=== PATIENT | female | born 1960 | race Caucasian/White ===

== ENCOUNTER → 2016-06-25 | Day surgery (SDC) | payer BC ==
[2016-06-16 15:31] VITALS: Ht 162.6 cm; Wt 146.8 kg
[~2016-06-25] VITALS: Ht 162.6 cm; Wt 146.8 kg
[~2016-06-25] MED LIST: ALBINS INH; ALBU0.08 INH; ALBUAER INH; ALPR-411 PO; CYAN10002 IM; CYAN1SUB13 INJ; CYCL5TAB PO; ERGO1CAP35 PO; ERGO1CAP41 PO; ESCI1TAB10 PO; FRC PO; FRCT/ PO; GABA-113 PO; GLC/500 PO; HYD50 PO; JUICE PLUS PO; LIDOCAINE HCL 1% MPF 5 ML VIAL ONE; MELA1CAP PO; METF-384 PO; NIAC1TAB3 PO; PRLSR20 PO; PROP1TAB PO; SIMV20TA5 PO; SODIUM CHLORIDE 0.9% INJ 10 ML VIAL ONE; TIZA4CAP PO; VNTHFA/IN INH
[2016-06-25 14:10] VITALS: TEMP 36.6
--- NOTE | 2016-06-25 14:29 | History & Physical Bridge - [place] ---
H&P Re-Evaluation Bridge Note: I have examined the patient, reviewed the History & Physical and in the interval since the performance of the History & Physical I have noted the following changes of clinical significance: No changes noted
[2016-06-25 14:52] VITALS: BP 125/76; PULSE 87; O2SAT 92
--- NOTE | 2016-06-25 15:00 | Discharge Instructions ---
Discharge Instructions Visit Reason for Visit: Lumbar Radiculopathy Discharge Discharge Diagnosis / Problem: leg pain Discharge Goals Goal(s): Decrease discomfort, Improve function Activity Recommendations Activity Limitations: resume your previous activity Anesthesia . Post Anesthesia Instructions: If you have had General Anesthesia or IV Sedation: * Do not drive today. * Resume driving when surgeon permits. * Do not make important decisions or sign legal documents today. * Call surgeon for: 1. Temperature elevations greater than 101 degrees F. 2. Uncontrollable pain. 3. Excessive bleeding. 4. Persistent nausea and vomiting. 5. Medication intolerance (nausea, vomiting or rash). * For nausea and vomiting use only clear liquids such as: tea, soda, bouillon until nausea subsides, then gradually increase diet as tolerated. * If you have any concerns or questions, call your surgeon's office. If physician is unavailable and it is an emergency, call 911 or go to the nearest emergency room. . Diet Recommendations Recommended Home Diet: resume previous diet Procedures Procedures Performed: Lumbar Epidural Steroid Injection Pending Studies Studies pending at discharge: no Medical Emergencies . Who to Call and When: Medical Emergencies: If at any time you feel your situation is an emergency, please call 911 immediately. . Non-Emergent Contact Non-Emergency issues call your: Specialist . . "Provider Documentation" section prepared by Wily Del Cid.
--- NOTE | 2016-06-25 16:09 | OPERATIVE REPORT ---
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 POSTOPERATIVE DIAGNOSIS: Same. PROCEDURE: Lumbar epidural right paramedian L5-S1 intralaminar epidural steroid injection under fluoroscopic guidance. SURGEON: Dr. Wily Del Cid. INDICATIONS: The patient is a 55-year-old white female that presents today for a lumbar epidural steroid injection. She gets a good number of months of relief following the injections and enables her to be more functional with relief. PHYSICAL EXAMINATION: Pleasant female seated comfortably in no apparent distress. She has normal lower extremity strength, intact sensation distally. Negative seated straight leg raises. CONSENT: Verbal and written consent was obtained from the patient. Risks and benefits were reviewed. Risks include but are not limited to epidural hematoma, epidural abscess, allergic reaction, dural puncture. The patient wishes to proceed. PROCEDURE: The patient was taken back to the special procedures room of the [facility] where she was maintained in a prone position. Backside was cleansed with Betadine x3 and a dry sterile dressing was applied. Fluoroscope was used to identify the L5-S1 intralaminar space and overlying skin was anesthetized on the right side with 4 mL of lidocaine 1% with a 25 gauge 1.5-inch needle. A 20 gauge 6 inch Tuohy needle was then directed towards the intralaminar space. It was advanced under lateral fluoroscopic guidance and loss of resistance was noted at a depth of 13 cm. I did utilize lidocaine in the epidural needle with a loss of resistance syringe to drop it to ensure we were in the epidural space as she has an allergy to IVP dye and was not utilized. She then underwent injection after negative aspiration of 40 mg of Depo-Medrol, 4 mL of preservative free sodium chloride. Injection was well tolerated. DISPOSITION: 1. The patient is taken out into the discharge recovery area where she will be discharged home once discharge criteria have been met. 2. Follow up in the [facility] office in 2-4 weeks. I attest to the content of the Intraoperative Record and any orders documented therein. Any exceptio ns are noted below.
== END | disposition home or self-care (01) ==
LOC: X.SURG 13:49
PROVIDERS: ATTEND Physical Medicine & Rehabilitation
DX: M54.16 Radiculopathy, lumbar region (principal); M48.06 Spinal stenosis, lumbar region

== ENCOUNTER → 2016-11-04 | Day surgery (SDC) | payer BC ==
[2016-10-16 10:49] VITALS: Ht 162.6 cm; Wt 143.2 kg
[~2016-11-04] VITALS: Ht 162.6 cm; Wt 143.2 kg
[~2016-11-04] MED LIST changes: -ERGO1CAP41 PO; +ERGO500011 PO; -GLC/500 PO; +IOPAMIDOL INJ 61% 15 ML VIAL ONE
[2016-11-04 14:53] VITALS: TEMP 37
--- NOTE | 2016-11-04 14:53 | Discharge Instructions ---
Discharge Instructions Date of Service Nov 04, 2016. Visit Reason for Visit: Lumbar Radiculopathy Discharge Discharge Diagnosis / Problem: leg pain Discharge Goals Goal(s): Decrease discomfort, Improve function Activity Recommendations Activity Limitations: resume your previous activity Anesthesia . Post Anesthesia Instructions: If you have had General Anesthesia or IV Sedation: * Do not drive today. * Resume driving when surgeon permits. * Do not make important decisions or sign legal documents today. * Call surgeon for: 1. Temperature elevations greater than 101 degrees F. 2. Uncontrollable pain. 3. Excessive bleeding. 4. Persistent nausea and vomiting. 5. Medication intolerance (nausea, vomiting or rash). * For nausea and vomiting use only clear liquids such as: tea, soda, bouillon until nausea subsides, then gradually increase diet as tolerated. * If you have any concerns or questions, call your surgeon's office. If physician is unavailable and it is an emergency, call 911 or go to the nearest emergency room. . Diet Recommendations Recommended Home Diet: resume previous diet Procedures Procedures Performed: Lumbar Epidural Steroid Injection Pending Studies Studies pending at discharge: no Medical Emergencies . Who to Call and When: Medical Emergencies: If at any time you feel your situation is an emergency, please call 911 immediately. . Non-Emergent Contact Non-Emergency issues call your: Specialist . . "Provider Documentation" section prepared by Wily Del Cid. .
[2016-11-04 15:02] VITALS: BP 139/88; PULSE 92; O2SAT 95
--- NOTE | 2016-11-04 15:14 | OPERATIVE REPORT ---
DATE OF OPERATION: 11/04/2016 PREOPERATIVE DIAGNOSIS: Lumbar stenosis with chronic right greater than left lower extremity radiculopathy. POSTOPERATIVE DIAGNOSIS: Same. PROCEDURE: Right paramedian L5-S1 intralaminar epidural steroid injection under fluoroscopic guidance. INDICATIONS: The patient is a 56-year-old white female who responds favorably to steroids. Her last injection was in June. She is able to be mobile following the injections and as the injection wears off, she is more or less confined to assistive devices or wheelchairs for ambulation. PHYSICAL EXAMINATION: Pleasant female seated comfortably. She has normal lower extremity strength. Negative seated straight leg raises. Sensation intact. CONSENT: Verbal and written consent was obtained from the patient. Risks and benefits were reviewed. Risks include but are not limited to epidural abscess, epidural hematoma, allergic reaction, dural puncture. The patient wishes to proceed. PROCEDURE IN DETAIL: The patient was taken back to the special procedures room of the [facility] where she was maintained in a prone position. Backside was cleansed with Betadine x3 and a dry sterile dressing was applied. Fluoroscope was used to identify the L5-S1 intralaminar space and overlying skin on the right side was anesthetized with 4 mL of lidocaine 1% with a 25 gauge 1.5-inch needle. A 20 gauge 6-inch Tuohy needle was then directed down towards the intralaminar space. It was advanced under lateral fluoroscopic guidance and loss of resistance was noted at a depth of just under 13 cm. Isovue contrast was not utilized, given her severe allergy. She then underwent an injection after negative aspiration of 40 mg of Depo-Medrol, 4 mL of preservative free sodium chloride. Injection was well tolerated. DISPOSITION: 1. The patient is taken out into the discharge recovery area where she will be discharged home once discharge criteria have been met. 2. Follow up in the [facility] Medicine office in 2-4 weeks. I attest to the content of the Intraoperative Record and any orders documented therein. Any exception s are noted below.
== END | disposition home or self-care (01) ==
LOC: X.SURG 13:23
PROVIDERS: ATTEND Physical Medicine & Rehabilitation
DX: M48.07 Spinal stenosis, lumbosacral region (principal)

== ENCOUNTER → 2017-03-10 | Day surgery (SDC) | payer BC, OTHER ==
[2017-02-12 14:37] VITALS: Ht 162.6 cm; Wt 143.2 kg
[~2017-03-10] VITALS: Ht 162.6 cm; Wt 143.2 kg
[~2017-03-10] MED LIST changes: -ALBU0.08 INH; -ALBUAER INH; -CYAN10002 IM; -ERGO1CAP35 PO; -FRC PO
[2017-03-10 14:10] VITALS: TEMP 36.5
--- NOTE | 2017-03-10 14:14 | Discharge Instructions ---
Discharge Instructions Date of Service Mar 10, 2017. Visit Reason for Visit: Lumbar Radiculopathy Discharge Discharge Diagnosis / Problem: leg pain Discharge Goals Goal(s): Decrease discomfort, Improve function Activity Recommendations Activity Limitations: resume your previous activity Anesthesia . Post Anesthesia Instructions: If you have had General Anesthesia or IV Sedation: * Do not drive today. * Resume driving when surgeon permits. * Do not make important decisions or sign legal documents today. * Call surgeon for: 1. Temperature elevations greater than 101 degrees F. 2. Uncontrollable pain. 3. Excessive bleeding. 4. Persistent nausea and vomiting. 5. Medication intolerance (nausea, vomiting or rash). * For nausea and vomiting use only clear liquids such as: tea, soda, bouillon until nausea subsides, then gradually increase diet as tolerated. * If you have any concerns or questions, call your surgeon's office. If physician is unavailable and it is an emergency, call 911 or go to the nearest emergency room. . Diet Recommendations Recommended Home Diet: resume previous diet Procedures Procedures Performed: LUMBAR EPIDURAL STEROID INJECTION Pending Studies Studies pending at discharge: no Medical Emergencies . Who to Call and When: Medical Emergencies: If at any time you feel your situation is an emergency, please call 911 immediately. . Non-Emergent Contact Non-Emergency issues call your: Specialist . . "Provider Documentation" section prepared by Wily Del Cid. .
--- NOTE | 2017-03-10 14:28 | OPERATIVE REPORT ---
DATE OF OPERATION: 03/10/2017 PREOPERATIVE DIAGNOSIS: Lumbar spinal stenosis with right lower extremity radiculopathy. POSTOPERATIVE DIAGNOSIS: Same. PROCEDURE: Right paramedian L5-S1 intralaminar epidural steroid injection under fluoroscopic guidance. INDICATIONS: The patient is a 56-year-old white female who underwent an epidural steroid injection with good results on 11/04/2016, essentially 80% improvement; however, the effectiveness has worn off and she presents today for an epidural injection to provide her with relief. PHYSICAL EXAMINATION: GENERAL: Pleasant female seated comfortably in no apparent distress. MUSCULOSKELETAL: Lumbar paraspinal muscles were palpated and noted to be nontender. She had no issues with palpation in the low back area. She had normal lower extremity strength. Negative seated straight leg raises. Intact sensation distally. CONSENT: Verbal and written consent was obtained from the patient. Risks and benefits were reviewed. Risks include, but are not limited to epidural abscess, epidural hematoma, allergic reaction, and dural puncture. The patient wishes to proceed. DESCRIPTION OF PROCEDURE: The patient was taken back to the special procedures room of the [facility]. She was maintained in a prone position. Backside was cleansed with Betadine x3 and a dry sterile dressing was applied. Fluoroscope was used to identify the L5-S1 intralaminar space. Overlying skin on the right side was anesthetized with 4 mL of lidocaine 1% with a 25-gauge 1-1/2 inch needle. A 20-gauge 6-inch Tuohy needle was then directed down towards the intralaminar space. It was advanced under lateral fluoroscopic guidance and loss of resistance was noted at a depth of 10 cm. Isovue 300 contrast was not utilized given the patient's IVP allergy and the depth of the incision was confirmed by the lateral views. She then underwent injection after a negative aspiration of 40 mg of Depo-Medrol and preservative free sodium chloride 4 mL. Injections was well tolerated and reproduced a transient radicular sensation down the right leg. DISPOSITION: 1. The patient was taken out into the discharge recovery area, where she will be discharged home once discharge criteria have been met. 2. Follow up in the [facility] Sports Medicine office in 2-4 weeks. I attest to the content of the Intraoperative Record and any orders documented therein. Any exception s are noted below.
[2017-03-10 14:32] VITALS: BP 143/83; PULSE 63; O2SAT 94
== END | disposition home or self-care (01) ==
LOC: X.SURG 12:50
PROVIDERS: ATTEND Physical Medicine & Rehabilitation
DX: M48.061 Spinal stenosis, lumbar region without neurogenic claudication (principal); M54.16 Radiculopathy, lumbar region; Z88.1 Allergy status to other antibiotic agents

== ENCOUNTER → 2017-07-02 | Outpatient (CLI) | payer BC ==
[~2017-07-02] MED LIST changes: -IOPAMIDOL INJ 61% 15 ML VIAL ONE; -LIDOCAINE HCL 1% MPF 5 ML VIAL ONE; -MELA1CAP PO; -NIAC1TAB3 PO; -SODIUM CHLORIDE 0.9% INJ 10 ML VIAL ONE
--- NOTE | 2017-07-02 08:57 | DIAGNOSTIC IMAGING REPORT ---
PELVIC COMPLETE NON OB CLINICAL HISTORY: 56 years-old Female presenting with POST MENOPAUSAL BLEEDING. TECHNIQUE: Real-time grayscale and color and spectral Doppler ultrasound imaging of the pelvis was performed first using a transabdominal probe and subsequently transvaginal for better characterization. COMPARISON: 01/08/2016. FINDINGS: Body habitus limits image quality. Uterus: Normal. Anteverted. The uterus measures 7.2 x 3.7 x 4.1 cm. Endometrial stripe measures 2-3 mm in thickness. Endometrium normal-appearing. Cervix contains nabothian cysts. Right adnexa: Right ovary normal. Right ovary measures 2.4 x 2.1 x 2.4 cm. Normal color Doppler flow and arterial and venous waveforms within the ovarian parenchyma. Left adnexa: Left ovary not visualized. Other: No free fluid. IMPRESSION: 1. Thin endometrium in the presence of postmenopausal bleeding. The risk of an endometrial carcinoma is less than 1 in 1000 in the setting of postmenopausal bleeding with endometrium less than 5 mm in thickness assuming the patient is not on tamoxifen. If the patient is on tamoxifen, despite the thin endometrium, this would be concerning and gynecologic consultation recommended. 2. Nonvisualization of the left ovary. Electronically signed by: Rd Jim M.D. 07/02/2017 8:55 AM Dictated Date/Time: 07/02/2017 8:51 AM
== END | disposition home or self-care (01) ==
LOC: C.ULTR 07:36
PROVIDERS: ATTEND Obstetrics & Gynecology Gynecologic Oncology
DX: N95.0 Postmenopausal bleeding (principal)

== ENCOUNTER → 2017-07-28 | Day surgery (SDC) | payer BC, OTHER ==
[2017-06-01 14:22] VITALS: Ht 162.6 cm; Wt 143.2 kg
[~2017-07-28] VITALS: Ht 162.6 cm; Wt 143.2 kg
[~2017-07-28] MED LIST changes: +BUPIVACAINE 0.25% 2.5MG/ML PF 10 ML VIAL ONE; +IOPAMIDOL INJ 61% 15 ML VIAL ONE; +LIDOCAINE HCL 1% MPF 5 ML VIAL ONE; +SODIUM CHLORIDE 0.9% INJ 10 ML VIAL ONE
[2017-07-28 08:05] VITALS: TEMP 36.7
--- NOTE | 2017-07-28 08:51 | [facility] Post Operative Brief Note ---
Immediate Operative Summary Operative Date Jul 28, 2017. Pre-Operative Diagnosis Lumbar spinal stenosis with lower extremity radiculopathy Post-Operative Diagnosis Same as pre-op Procedure(s) Performed Lumbar Epidural Steroid Injection Surgeon Dr. Del Cid Core Winder Machine Operator Surgeon(s) None Estimated Blood Loss Zero Findings Consistent with Post-Op Diagnosis Specimens None Drains None Anesthesia Type Local Complication(s) none Disposition Disposition:
--- NOTE | 2017-07-28 08:52 | Discharge Instructions ---
Discharge Instructions Date of Service Jul 28, 2017. Visit Reason for Visit: Lumbar Radiculopathy Discharge Discharge Diagnosis / Problem: lumbar radiculopathy Discharge Goals Goal(s): Decrease discomfort, Improve function Activity Recommendations Activity Limitations: resume your previous activity Anesthesia . Post Anesthesia Instructions: If you have had General Anesthesia or IV Sedation: * Do not drive today. * Resume driving when surgeon permits. * Do not make important decisions or sign legal documents today. * Call surgeon for: 1. Temperature elevations greater than 101 degrees F. 2. Uncontrollable pain. 3. Excessive bleeding. 4. Persistent nausea and vomiting. 5. Medication intolerance (nausea, vomiting or rash). * For nausea and vomiting use only clear liquids such as: tea, soda, bouillon until nausea subsides, then gradually increase diet as tolerated. * If you have any concerns or questions, call your surgeon's office. If physician is unavailable and it is an emergency, call 911 or go to the nearest emergency room. . Diet Recommendations Recommended Home Diet: resume previous diet Procedures Procedures Performed: Lumbar Epidural Steroid Injection Pending Studies Studies pending at discharge: no Medical Emergencies . Who to Call and When: Medical Emergencies: If at any time you feel your situation is an emergency, please call 911 immediately. . Non-Emergent Contact Non-Emergency issues call your: Specialist . . "Provider Documentation" section prepared by Wily Del Cid. .
[2017-07-28 09:13] VITALS: BP 138/77; PULSE 66; O2SAT 94
--- NOTE | 2017-07-28 09:21 | OPERATIVE REPORT ---
DATE OF OPERATION: 07/28/2017 PREOPERATIVE DIAGNOSIS: Lumbar spinal stenosis with right greater than left lower extremity radiculopathy. POSTOPERATIVE DIAGNOSIS: Same. PROCEDURE: Right paramedian L5-S1 interlaminar epidural steroid injection under fluoroscopic guidance. INDICATIONS: The patient is a 57-year-old white female who had an epidural injection at the end of March. She typically gets 75-80% improvement as well as improvement in functionality; however, the effect wears off and it has worn off and she has difficulty getting around and she presents today for an epidural to improve her pain and functional status. PHYSICAL EXAMINATION: GENERAL: Pleasant female seated comfortably, in no apparent distress. MUSCULOSKELETAL: Lumbar paraspinal muscles are palpated and noted be nontender and she has normal lower extremity strength. Negative seated straight leg raise. Intact sensation distally. CONSENT: Verbal and written consent was obtained from the patient. Risks and benefits were reviewed. Risks include but are not limited to epidural abscess, epidural hematoma, allergic reaction, dural puncture. The patient wishes to proceed. PROCEDURE IN DETAIL: The patient was taken back into OR #1 of the [facility] where she was maintained in a prone position. Backside was cleansed with Betadine x3 and a dry sterile dressing was applied. Fluoroscope was used to identify the L5-S1 interlaminar space and overlying skin on the right side was anesthetized with 4 mL of lidocaine 1% with a 25-gauge 1-1/2-inch needle. A 20-gauge 4-1/2-inch needle was then directed down toward the interlaminar space, it was advanced under lateral fluoroscopic guidance and loss of resistance was noted at a depth of nearly the whole needle with it being 0.5 cm from the skin to the hub. She then underwent injection after negative aspiration, of 40 mg Depo-Medrol and 4 mL of preservative-free sodium chloride. Injection was well tolerated and reproduced a familiar transient radicular sensation down the leg. DISPOSITION: 1. The patient is taken out into the discharge recovery area where she will be discharged home once discharge criteria have been met. 2. Follow up in the [facility] Medicine office in 2-4 weeks. I attest to the content of the Intraoperative Record and any orders documented therein. Any exception s are noted below.
== END | disposition home or self-care (01) ==
LOC: X.SURG 07:52
PROVIDERS: ATTEND Physical Medicine & Rehabilitation
DX: M48.061 Spinal stenosis, lumbar region without neurogenic claudication (principal); M54.16 Radiculopathy, lumbar region; Z98.890 Other specified postprocedural states

== ENCOUNTER 2023-05-06 14:15 | Inpatient (IN) ==
--- NOTE | 2023-05-06 14:39 | ED Triage Note ---
Date of Service May 06, 2023 Provider in Triage Author: Li Payton History of Present Illness This patient was briefly evaluated while in triage. An abbreviated physical exam was performed. This patient is a 62-year-old Female who presents to the ED for evaluation of following with the [facility] for infection under pannus and on legs, was to see them tomorrow poorly controlled DM, morbid obesity, hx of intertriginous candidiasis red, itchy, oozing, getting more painful. sent by Dr. Hager for IV antibiotics has multiple antibiotic allergies Physical Exam GENERAL: NAD, morbidly obese in WC CARDIOVASCULAR: RRR RESPIRATORY: CTA ABDOMEN: BS x 4. Nontender to palpation. Unable to visualized skin in area of concern in triage. Initial orders for labs and / or imaging were placed and patient was placed in the waiting area until a bed is available. Please see further documentation for the full ED course.
--- NOTE | 2023-05-06 16:16 | Emergency Department Note ---
Impression & Plan Cellulitis, Weakness, Leukocytosis, Hypokalemia ED Provider Note NAME: CHRISTINA HORNER AGE: 62 SEX: F : 1960 ARRIVES VIA: Walk-In INFORMANT: Patient ED PROVIDER(S): Nasim Penn DO CHIEF COMPLAINT: pain in groin HPI: Patient is a 62-year-old female with multiple allergies and morbid obesity who presents to the ER for wounds in her bilateral groins which are getting worse. She has been feeling hot and cold. She does have a little bit of a cough. She notes her right lower extremity has been erythematous for the past several days. She believes the wounds in her groins have been getting worse over the past 1 to 2 weeks. She been following with wound care clinic as well as infectious disease and dermatology. She was referred in by her PCP. Denies any headache or change in vision. No chest pain but does have a cough. Patient also admits to some congestion and stuffiness of her nose. ADDITIONAL HISTORY OBTAINED: Per HPI Chronic Medical/Social Conditions Affecting Care: Per HPI PAST MEDICAL HISTORY:See Below PAST SURGICAL HISTORY:See Below FAMILY HISTORY:See Below SOCIAL HISTORY:See Below HOME MEDICATIONS:See Below ALLERGIES:See Below VITALS:See Below PHYSICAL EXAMINATION: GENERAL: Sitting up in bed, alert, morbidly obese, disheveled EYE EXAM: normal conjunctiva. PERRL and EOM's grossly intact. OROPHARYNX: mucous membranes are moist NECK: supple, no nuchal rigidity, no adenopathy, non-tender LUNGS: Clear to auscultation. Normal chest wall mechanics HEART: no murmurs, S1 normal and S2 normal ABDOMEN: abdomen soft, non-tender, normo-active bowel sounds, no masses, no rebound or guarding. BACK: Back is symmetrical on inspection and there is no deformity, no midline tenderness, no CVA tenderness. SKIN: Bilateral groins are erythematous and moist with several wounds and foul smell UPPER EXTREMITIES: upper extremities are grossly normal. LOWER EXTREMITIES: No pitting edema. NEURO EXAM: Normal sensorium, cranial nerves II-XII grossly intact, normal speech, no gross weakness of arms, no gross weakness of legs. MEDICAL DECISION MAKING: Patient is a 62-year-old female who presents ER for above-stated complaint. She was referred in by her PCP. IV was established blood work was obtained. Labs show leukocytosis of 14,000. No significant anemia. BMP with mild hypokalemia 3. Glucose at 148. Mag was normal. LFTs bilirubin and troponin were unremarkable. Pro-Sterling was normal. UA was clean. COVID flu and RSV was negative. Previous cultures were reviewed/external records and patient was ordered IV antibiotics/daptomycin. She was ordered nystatin powder. Updated bedside. Discussed case with the hospitalist Dr. Kaur for further evaluation management treatment. Consults/Care Managements Discussions: Per MDM Triage Nursing notes reviewed. Limited review of prior medical records performed Vital Signs: reviewed and remarkable for hypoxic Differential diagnosis: Infection, dehydration, metabolic abnormality, hypo/hyperglycemia, electrolyte disturbance, anemia, hypoxia, cardiac sources, intracerebral event, toxicologic, neurologic, as well as other pathologies. ER treatment provided: See below Diagnostics interpreted by me include EKG and cardiac monitoring as listed below: -Cardiac Monitoring: An order was placed for continuous cardiac monitoring. The monitor shows a rate of 80 with sinus rhythm. -ECG: none -Laboratory studies:Interpreted by me as stated above in MDM and shown below. Imaging studies: Xrays: As interpreted by me: Portable AP upright 1 view of the chest shows no focal infiltrate CTs show: none Procedures:none Critical Care: None Past Med/Surg History Medical History Anxiety and depression Visit for wound care 04/16/23>follows with [place] [facility] (biopsy of left leg and abdomen>see results) to follow up with infectious disease 04/27/23 ? 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 IN ED NO SLURRED SPEECH NOTED. EVALUSTION DONE - RESULTS PER ED VISIT - R/T ALBA'S PALSY - MEDROL DOSE PACK GIVEN AND D/C TO HOME HX BELLS PALSY X2 Osteoarthritis Fibromyalgia Ming's thyroiditis DJD (degenerative joint disease) Chronic neck and back pain GERD (gastroesophageal reflux disease) Diabetes mellitus, type 2 Sjogren's syndrome Anemia Migraine Hyperlipidemia Hypertension Sleep apnea cpap with 4 liters of oxygen Surgical History Family history of reaction to anesthesia both parents N/V S/P epidural steroid injection Nausea and vomiting after administration of anesthetic agent prior surgeries at [place] has been pretreated and done well without n/v. History of dilatation and curettage History of carpal tunnel release bilt Status post cervical spinal fusion x2--c4-5, c5-6 normal ROM History of arthroscopy of left knee History of colonoscopy History of esophagogastroduodenoscopy (EGD) History of gastric bypass gastric sleeve 2010 @ [facility] [place] History of tooth extraction wisdom teeth Family History Father Family history of reaction to anesthesia nauseated Family history of diabetes mellitus Social History Smoking Status: Never smoker Second Hand Exposure: No; Do You Dip or Chew Tobacco: No; Hx Alcohol Use: No Preferred Language: Pashto Communication Ability: Effective Visual Impairment: Limited Hearing Ability: Hard of Hearing Gis Analyst Required: No Beliefs That Will Affect Care: None marital status: Current Living Situation: Spouse Current Living Situation Comment: And daughter Feels Safe at Home: Yes Diet: regular Assistive Devices: Cane, CPAP and Glasses Allergies Allergies Allergy/AdvReac Type Severity Reaction Status Date / Time cephalexin Allergy Severe hives Verified 04/30/23 14:14 clindamycin Allergy Severe Anaphylaxis Verified 04/30/23 14:14 Iodinated Contrast Media Allergy Severe "X-RAY DYE Verified 04/30/23 14:14 - body SWELLING" - FROM CT MYELOGRAM. Penicillins Allergy Severe HIVES AND Verified 04/30/23 14:14 N/V nickel Allergy Mild Rash Verified 04/30/23 14:14 zolpidem AdvReac Severe Sleep Walk Verified 04/30/23 14:14 aspirin AdvReac Intermediate upset Verified 04/30/23 14:14 stomach codeine AdvReac Intermediate HEADACHE Verified 04/30/23 14:14 sumatriptan AdvReac Intermediate Tachycardia Verified 04/30/23 14:14 cetirizine AdvReac Mild Drowsiness Verified 04/30/23 14:14 PAIN MEDS AdvReac Intermediate NAUSEA Uncoded 04/30/23 14:14 Cryselle-28 TABS AdvReac Unknown PT DOESNT' Uncoded 04/30/23 14:14 REMEMBER Excedrin TABS AdvReac Unknown Gastrointestinal Uncoded 04/30/23 14:14 Upset Home Meds Home Medications Medication Instructions Recorded Confirmed cyanocobalamin (vitamin B-12) 1,000 mcg IM MONTHLY 03/15/18 05/06/23 1,000 mcg/mL injection kit escitalopram oxalate 20 mg tablet 20 mg PO HS 03/15/18 05/06/23 gabapentin 300 mg tablet,extended 300 mg PO BID 03/15/18 05/06/23 release 24 hr hydrochlorothiazide 50 mg tablet 25 mg PO QAM 03/15/18 05/06/23 metformin 1,000 mg tablet 1,000 mg PO BID 03/15/18 05/06/23 omeprazole 20 mg tablet,delayed 20 mg PO BID 03/15/18 05/06/23 release simvastatin 20 mg tablet 20 mg PO QPM 03/15/18 05/06/23 tizanidine 4 mg tablet 4 mg PO Q8H PRN MUSCLE SPASMS 03/15/18 05/06/23 buspirone 30 mg tablet 30 mg PO BID 05/23/19 05/06/23 cyclobenzaprine 10 mg tablet 10 mg PO BID 05/23/19 05/06/23 propranolol 40 mg tablet 40 mg PO QAM 05/23/19 05/06/23 trazodone 100 mg tablet 200 mg PO HS 05/23/19 05/06/23 glipizide 10 mg tablet 10 mg PO QAM 05/24/19 05/06/23 trazodone 50 mg tablet 50 mg PO HS 05/24/19 05/06/23 lorazepam 0.5 mg tablet (Ativan) 0.5 mg PO BID PRN Anxiety 04/24/22 05/06/23 hydroxyzine pamoate 25 mg capsule 25 - 50 mg PO QID PRN Itching 10/28/22 05/06/23 wqcpewtocf-avfmcljnxsbuz-[id number] 1 cap PO ONCE PRN MIGRAINES 04/16/23 05/06/23 50 mg-300 mg-40 mg capsule (Fioricet) cholecalciferol (vitamin D3) 1,250 1,250 mcg PO .Fridays04/16/23 05/06/23 mcg (50,000 unit) capsule empagliflozin 10 mg tablet 25 mg PO QAM 04/16/23 05/06/23 (Jardiance) itraconazole 100 mg capsule 0 mg PO DAILY 04/16/23 04/30/23 ondansetron 4 mg disintegrating 4 mg PO Q8H PRN Other 04/16/23 05/06/23 tablet Previous Rx's Medication Instructions Recorded sodium sul 1.479 gram-potas ch See Rx Instructions PO .COMPLEX 02/24/23 0.188 gram-magnes sul 0.225 gram #24 tabs tablet (Sutab) Results & Data (ED) Vital Signs Vital Signs - 24 hr 05/06/23 14:38 05/06/23 15:49 05/06/23 15:50 Temperature 36.3 C L Temperature Source Oral Pulse Rate 69 73 Pulse Rate [Bilateral] Respiratory Rate 20 Respiratory Effort / Characteristics Non-Labored Spontaneous Respiratory Depth Normal Respiratory Pattern Regular Blood Pressure 159/74 H Blood Pressure [Right Arm] Blood Pressure Mean 102 Blood Pressure Mean [Right Arm] Pulse Oximetry 95 85 L Oxygen Delivery Method Room Air Room Air Oxygen Flow Rate Sepsis Recent Fever Within 48 Hours No Sepsis New/Unexplained Change in Mental Status N/A Sepsis Action Taken by Nursing No Action Required 05/06/23 15:58 05/06/23 16:00 05/06/23 17:00 Temperature 36.6 C Temperature Source Oral Pulse Rate Pulse Rate [Bilateral] 72 72 73 Respiratory Rate 18 18 18 Respiratory Effort / Characteristics Respiratory Depth Respiratory Pattern Blood Pressure Blood Pressure [Right Arm] 165/86 H 160/81 H 162/98 H Blood Pressure Mean Blood Pressure Mean [Right Arm] 112 107 119 Pulse Oximetry 96 96 96 Oxygen Delivery Method Nasal Cannula Nasal Cannula Nasal Cannula Oxygen Flow Rate 4 4 4 Sepsis Recent Fever Within 48 Hours Sepsis New/Unexplained Change in Mental Status Sepsis Action Taken by Nursing Laboratory Data 05/06/23 16:01 05/06/23 16:01 Lab Results 05/06/23 05/06/23 05/06/23 Range/Units 16:01 17:00 17:39 WBC 14.65 H (4.8-10.8) K/ul RBC 4.87 (4.20-5.40) M/uL Hgb 14.4 (12.0-16.0) g/dl Hct 41.6 (37.0-47.0) % MCV 85.4 (80.0-100.0) fL MCH 29.6 (25.0-34.0) pg MCHC 34.6 (32.0-36.0) g/dL RDW Std Deviation 42.5 (36.4-46.3) fL RDW Coeff of [place] 13.7 (11.5-14.5) % Plt Count 321 (130-400) K/uL MPV 9.4 (9.4-12.4) fL Immature Gran % (Auto) 0.6 % Neut % (Auto) 79.7 % Lymph % (Auto) 11.0 % [place] % (Auto) 6.5 % Eos % (Auto) 1.5 % Baso % (Auto) 0.7 % Neut # (Auto) 11.68 H (1.40-6.50) K/uL Lymph # (Auto) 1.61 (1.20-3.40) K/uL [place] # (Auto) 0.95 H (0.11-0.59) K/uL Eos # (Auto) 0.22 (0.00-0.50) K/uL Baso # (Auto) 0.10 (0.00-0.20) K/uL Immature Gran # (Auto) 0.09 (0.01-0.20) K/uL Sodium 137 (136-145) mmol/L Potassium 3.0 L (3.5-5.1) mmol/L Chloride 97 L (98-107) mmol/L Carbon Dioxide 28 (21-32) mmol/L Anion Gap 12 H (3-11) BUN 8 (6-23) mg/dl Creatinine 0.48 L (0.6-1.2) mg/dl Est Cr Clr Drug Dosing 173.3 ml/min Est GFR ( Amer) 122.7 ml/min Est GFR (Non-Af Amer) 105.9 ml/min BUN/Creatinine Ratio 16.7 (10-20) Glucose 149 H (70-99(Fasting)) mg/dl Lactate 1.3 (0.4-2.0) mmol/L Calcium 9.0 (8.6-10.3) mg/dl Magnesium 2.0 (1.7-2.4) mg/dl Total Bilirubin 0.5 (0.2-1.0) mg/dl Direct Bilirubin 0.1 (0-0.2) mg/dl AST 9 L (13-39) U/L ALT 11 (7-52) U/L Alkaline Phosphatase 55 (34-104) U/L Troponin I High Sens 3.7 (0-14) pg/ml Total Protein 7.2 (6.0-8.3) gm/dl Albumin 3.9 (3.4-5.0) gm/dl Procalcitonin 0.08 (0-0.5) ng/ml Urine Color Yellow Urine Appearance Clear (Clear) Urine pH 7.5 (4.5-7.5) Ur Specific [place] 1.015 (1.000-1.030) Urine Protein Negative (Negative) Urine Glucose (UA) 3+ H (Negative) Urine Ketones 1+ H (Negative) Urine Blood Negative (Negative) Urine Nitrite Negative (Negative) Urine Bilirubin Negative (Negative) Urine Urobilinogen Negative (Negative) Ur Leukocyte Esterase Negative (Negative) SARS-CoV-2 (PCR) NEGATIVE (Negative) Influenza Type A (PCR) Negative (Neg) Influenza Type B (PCR) Negative (Neg) RSV (RT-PCR) Negative (Neg) Administered Medications Discontinued Medications Daptomycin 350 mg/ Syringe 7 mls @ 3.5 mls/min IV Q24H LUIS A; Protocol Stop: 05/08/23 16:29 Last Admin: 05/06/23 16:55 Dose: 3.5 mls/min Documented By: TBS Miconazole Nitrate (Miconazole Nitrate Powder 85 Gm) 1 appln EXT NOW ONE Stop: 05/06/23 16:31 Last Admin: 05/06/23 16:55 Dose: 1 appln Documented By: TBS Potassium Chloride (Potassium Chloride Crtab 20 Meq Tabcr) 40 meq PO NOW STA Stop: 05/06/23 17:45 Last Admin: 05/06/23 19:21 Dose: 40 meq Documented By: TBS Imaging Data Radiologist's Impression: Chest X-Ray 05/06/23 16:19 XR chest 1V portable HISTORY: hypoxic COMPARISON: Chest 05/22/2019. FINDINGS: There are low lung volumes. No pneumothorax. No pleural effusions. The heart remains mildly enlarged. No focal lung consolidations to suggest a pneumonia. No evidence for pulmonary edema. Prominence of the interstitial markings is likely technical. Cervical spinal fusion hardware is noted. Degenerative changes within the right shoulder. No acute fractures. IMPRESSION: No significant change compared to the prior study. No acute process. ACT 112: Negative or not required by law. Electronically signed by: Ibrahima Welch M.D. 05/06/2023 4:44 PM Discharge Plan Visit Data Chief Complaint: Infection Stated Complaint: INFECTION IN BOTH LEGS ED Provider: Nasim Penn Discharge Problem: Cellulitis, Weakness, Leukocytosis, Hypokalemia Patient Disposition: Admitted As Inpatient Discharge Instructions Interventions: ED Discharge Assessment Last Done: 05/06/23 20:47 Discharge Problem: Cellulitis Qualifiers: Site of cellulitis: unspecified site Qualified Code(s): L03.90 - Cellulitis, unspecified Leukocytosis Qualifiers: Leukocytosis type: unspecified Qualified Code(s): D72.829 - Elevated white blood cell count, unspecified
[2023-05-06 16:28] LABS: Basophils % (auto) 0.7 %; Eosinophils # (auto) 0.22 K/uL (0.00-0.50); Eosinophils % (auto) 1.5 %; Hematocrit (blood only) 41.6 % (37.0-47.0); Hemoglobin 14.4 g/dl (12.0-16.0); Immature Granulocytes # (auto) 0.09 K/uL (0.01-0.20); Immature Granulocytes % (auto) 0.6 %; Lymphocytes # (auto) 1.61 K/uL (1.20-3.40); Mean Corpuscular Hemoglobin 29.6 pg (25.0-34.0); Mean Corpuscular Hgb Conc 34.6 g/dL (32.0-36.0); Mean Corpuscular Volume 85.4 fL (80.0-100.0); Mean Platelet Volume 9.4 fL (9.4-12.4); Monocytes # (auto) 0.95 K/uL (0.11-0.59); Monocytes % (auto) 6.5 %; Neutrophils # (auto) 11.68 K/uL (1.40-6.50); Neutrophils % (auto) 79.7 %; Platelet Count 321 K/uL (130-400); RDW Coefficient of Variation 13.7 % (11.5-14.5); RDW Standard Deviation 42.5 fL (36.4-46.3); Red Blood Count 4.87 M/uL (4.20-5.40); White Blood Count 14.65 K/ul (4.8-10.8)
[2023-05-06] MEDS ORDERED: DAPTOmycin 350 MG in SYRINGE 0 ML IV SCH (16:30)
[2023-05-06] MEDS ORDERED: MICONAZOLE NITRATE POWDER 85 GM EXT ONE (16:30)
[2023-05-06 16:36] LABS: Albumin Level 3.9 gm/dl (3.4-5.0); BUN Creatinine Ratio 16.7 (10-20); Bilirubin Direct 0.1 mg/dl (0-0.2); Bilirubin,Total 0.5 mg/dl (0.2-1.0); Creatinine Clr Calc Pharmacy 173.3 ml/min; Est GFR (African American) 122.7 ml/min; Est GFR (Non-African American) 105.9 ml/min; Total Protein 7.2 gm/dl (6.0-8.3)
--- NOTE | 2023-05-06 16:46 | XRay Report ---
XR chest 1V portable HISTORY: hypoxic COMPARISON: Chest 05/22/2019. FINDINGS: There are low lung volumes. No pneumothorax. No pleural effusions. The heart remains mildly enlarged. No focal lung consolidations to suggest a pneumonia. No evidence for pulmonary edema. Prom inence of the interstitial markings is likely technical. Cervical spinal fusion hardware is noted. De generative changes within the right shoulder. No acute fractures. IMPRESSION: No significant change compared to the prior study. No acute process. ACT 112: Negative or not required by law. Electronically signed by: Ibrahima Welch M.D. 05/06/2023 4:44 PM
--- NOTE | 2023-05-06 16:56 | History & Physical Report ---
Date of Service May 06, 2023 Assessment & Plan (1) Cellulitis: Plan: Patient has diffuse cellulitis with additional intertrigo underlying the pannus and extending down to the proximal thighs bilaterally, has clearing of the distal thigh and proximal lower leg and then bilateral venous stasis with some asymmetric right greater than left erythema of the lower extremity No fluctuance appreciated, no crepitus of the abdomen, thigh, or peritonum. She is nontoxic appearing on admission Patient has a surface culture positive for group B strep, in addition to a lower surface culture positive for CONS Clinically appears consistent with streptococcal cellulitis; unfortunately patient reports anaphylactic reaction to antibiotics and has had diffuse reaction to both penicillin and cephalexin. She was pending allergy testing next week Will admit on daptomycin, this will cover both strep/coag negative staph. Patient does not appear septic on admission although does have a leukocytosis. CBC and CRP trended. Pro-Sterling is normal Cellulitic borders marked with surgical pen, photos attached to H&P Lactate is normal on admission [facility] allergy consultation pending 05/05 Statin held while on daptomycin (2) Candidiasis, intertrigo: Plan: Continue miconazole (3) Poorly controlled type 2 diabetes mellitus: Plan: Converted to basal bolus while inpatient, Jardiance/glipizide/metformin held Goal BSG [id number] BSG 149 on admit (4) Obesity, morbid, BMI 50 or higher: (5) Anxiety: Plan: Continue BuSpar (6) GERD (gastroesophageal reflux disease): Plan: Omeprazole converted to protonix (7) Asthma: Plan: No acute exacerbation. Albuterol as needed (8) Hypertension: Plan: Mildly hypertensive, asymptomatic on admission Continue home antihypertensives including propranolol/hydrochlorothiazide Plan DVT prophylaxis: Lovenox CODE STATUS: DNR/DNI. Patient would want intubation for respiratory protection in the event of an allergic reaction/airway compromise, would not want resuscitation/revival and a complete cardiac or pulmonary arrest Diet: Type II DM Disposition: Medical/surgical. If any signs of allergic reaction, transfer to PCU. History of Present Illness Primary Care Provider: DO Ene Reyes is a 62-year-old female with a past medical history of multiple medication allergies, type II DM, morbid obesity BMI greater than 50, hyperlipidemia, GERD, asthma, anemia, anxiety who presents for evaluation of a bilateral groin infection. Per ER signout/review patient has had bilateral groin wounds progressing over the last 2 weeks, expanded erythema of her right lower extremity for the past week, and has had intermittent chills. She follows with wound clinic, was referred to the ER by her PCP. She is followed by infectious disease for recurrent yeast infections which did not improve on nystatin, which did improve on itraconazole, and was transition to clotrimazolebetamethasone with improvement. Open wounds of bilateral groin and pannus left greater than right with erythema. Suspected to have possible underlying component of hidradenitis. She is with antibiotic allergies to penicillin, Keflex and pending outpatient infectious disease testing DM2, on jardiance/metoforming Pt is scheduled for allergy testing for challenge, with [facility]. Has not taken PCN in many years, broke out in broke out in itchy red rash with hives all over upper and lower body without lip/tongue involvement. Is not sure about keflex allergy. Has taken clindamycin and does not remember the reaction, but has had anaphylaxis to 'an antibiotic I don't remember what, but I took a lot of benadril and other medicines for it and eventually got better.' Is pending cardiology followup but does not know why She took her morning pills today No ches tpain or chest pressure. No syncope or presyncope Chronic dry cough, no sputum production. Medical History: Reviewed Medications: Reviewed Surgical History: Reviewed Family history: Reviewed Allergies: Reviewed, see above Social History: No tobacco/cigarette/vape use. No etoh use. No marijuana use Code Status: Allergies Allergy/AdvReac Type Severity Reaction Status Date / Time cephalexin Allergy Severe hives Verified 04/30/23 14:14 clindamycin Allergy Severe Anaphylaxis Verified 04/30/23 14:14 Iodinated Contrast Media Allergy Severe "X-RAY DYE Verified 04/30/23 14:14 - body SWELLING" - FROM CT MYELOGRAM. Penicillins Allergy Severe HIVES AND Verified 04/30/23 14:14 N/V nickel Allergy Mild Rash Verified 04/30/23 14:14 zolpidem AdvReac Severe Sleep Walk Verified 04/30/23 14:14 aspirin AdvReac Intermediate upset Verified 04/30/23 14:14 stomach codeine AdvReac Intermediate HEADACHE Verified 04/30/23 14:14 sumatriptan AdvReac Intermediate Tachycardia Verified 04/30/23 14:14 cetirizine AdvReac Mild Drowsiness Verified 04/30/23 14:14 PAIN MEDS AdvReac Intermediate NAUSEA Uncoded 04/30/23 14:14 Cryselle-28 TABS AdvReac Unknown PT DOESNT' Uncoded 04/30/23 14:14 REMEMBER Excedrin TABS AdvReac Unknown Gastrointestinal Uncoded 04/30/23 14:14 Upset Home Medications Medication Instructions Recorded Confirmed Type cyanocobalamin (vitamin B-12) 1,000 mcg IM MONTHLY 03/15/18 05/06/23 History 1,000 mcg/mL injection kit escitalopram oxalate 20 mg tablet 20 mg PO HS 03/15/18 05/06/23 History gabapentin 300 mg tablet,extended 300 mg PO BID 03/15/18 05/06/23 History release 24 hr hydrochlorothiazide 50 mg tablet 25 mg PO QAM 03/15/18 05/06/23 History metformin 1,000 mg tablet 1,000 mg PO BID 03/15/18 05/06/23 History omeprazole 20 mg tablet,delayed 20 mg PO BID 03/15/18 05/06/23 History release simvastatin 20 mg tablet 20 mg PO QPM 03/15/18 05/06/23 History tizanidine 4 mg tablet 4 mg PO Q8H PRN MUSCLE SPASMS 03/15/18 05/06/23 History buspirone 30 mg tablet 30 mg PO BID 05/23/19 05/06/23 History cyclobenzaprine 10 mg tablet 10 mg PO BID 05/23/19 05/06/23 History propranolol 40 mg tablet 40 mg PO QAM 05/23/19 05/06/23 History trazodone 100 mg tablet 200 mg PO HS 05/23/19 05/06/23 History glipizide 10 mg tablet 10 mg PO QAM 05/24/19 05/06/23 History trazodone 50 mg tablet 50 mg PO HS 05/24/19 05/06/23 History lorazepam 0.5 mg tablet (Ativan) 0.5 mg PO BID PRN Anxiety 04/24/22 05/06/23 History hydroxyzine pamoate 25 mg capsule 25 - 50 mg PO QID PRN Itching 10/28/22 05/06/23 History sodium sul 1.479 gram-potas ch See Rx Instructions PO .COMPLEX 02/24/23 05/06/23 Rx 0.188 gram-magnes sul 0.225 gram #24 tabs tablet (Sutab) [id number]-[id number] 1 cap PO ONCE PRN MIGRAINES 04/16/23 05/06/23 History 50 mg-300 mg-40 mg capsule (Fioricet) cholecalciferol (vitamin D3) 1,250 1,250 mcg PO .Fridays04/16/23 05/06/23 History mcg (50,000 unit) capsule empagliflozin 10 mg tablet 25 mg PO QAM 04/16/23 05/06/23 History (Jardiance) itraconazole 100 mg capsule 0 mg PO DAILY 04/16/23 04/30/23 History ondansetron 4 mg disintegrating 4 mg PO Q8H PRN Other 04/16/23 05/06/23 History tablet Past Med/Surg History Medical History Anxiety and depression Visit for wound care 04/16/23>follows with [facility] (biopsy of left leg and abdomen>see results) to follow up with infectious disease 04/27/23 ? 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 IN ED NO SLURRED SPEECH NOTED. EVALUSTION DONE - RESULTS PER ED VISIT - R/T CURRY'S PALSY - MEDROL DOSE PACK GIVEN AND D/C TO HOME HX BELLS PALSY X2 Osteoarthritis Fibromyalgia Ming's thyroiditis DJD (degenerative joint disease) Chronic neck and back pain GERD (gastroesophageal reflux disease) Diabetes mellitus, type 2 Sjogren's syndrome Anemia Migraine Hyperlipidemia Hypertension Sleep apnea cpap with 4 liters of oxygen Surgical History Family history of reaction to anesthesia both parents N/V S/P epidural steroid injection Nausea and vomiting after administration of anesthetic agent prior surgeries at [facility] has been pretreated and done well without n/v. History of dilatation and curettage History of carpal tunnel release bilt Status post cervical spinal fusion x2--c4-5, c5-6 normal ROM History of arthroscopy of left knee History of colonoscopy History of esophagogastroduodenoscopy (EGD) History of gastric bypass gastric sleeve 2010 @ [facility] [place] History of tooth extraction wisdom teeth Family History Father Family history of reaction to anesthesia nauseated Family history of diabetes mellitus Social History Smoking Status: Never smoker Second Hand Exposure: No; Do You Dip or Chew Tobacco: No; Hx Alcohol Use: No Preferred Language: Armenian Communication Ability: Effective Visual Impairment: Limited Hearing Ability: Hard of Hearing Chief Business Officer Required: No Beliefs That Will Affect Care: None marital status: Current Living Situation: Spouse Current Living Situation Comment: And daughter Feels Safe at Home: Yes Diet: regular Assistive Devices: Cane, CPAP and Glasses Physical Exam 2 Physical Exam: General: A&Ox3. NAD. Cooperative. HEENT: Atraumatic, normocephalic. Vision/hearing and Pulm: CTAB A&P. -wheezes, -rales, -rhonchi. Symmetrical chest rise. No increased work of breathing. No respiratory distress. Cardiac: RRR, -mrg. Radial pulses intact and symmetrical. Abdomen: Obese, diffuse demarcated erythema with skin erosions underlying the pannus and extended down to the proximal thigh bilaterally. Photos attached below. Is focally warm and extremely tender. Extremities: Demarcated erythema right greater than left in the lower extremities, tender. Marked with a surgical pen Results & Data Results & Data Vital Signs (Past 12 Hours) Vital Signs Temp Pulse Pulse Resp BP BP Pulse Ox 05/06/23 15:58 36.6 C 72 18 165/86 H 96 05/06/23 15:50 85 L 05/06/23 15:49 73 05/06/23 14:38 36.3 C L 69 20 159/74 H 95 O2 Del Method O2 Flow Rate 05/06/23 15:58 Nasal Cannula 4 05/06/23 15:50 Room Air 05/06/23 15:49 05/06/23 14:38 Room Air PG Care Time/CCT Total # of Minutes Spent Total Time Spent with Patient: Total time spent is greater than 50% in coordination of care (as documented) at patient's floor/unit and/or counseling patient: Coding Level of Care Code 88598 INT INP/OBS CARE MIN Diagnoses Cellulitis L03.90 Candidiasis, intertrigo B37.2 Poorly controlled type 2 diabetes mellitus E11.65 Obesity, morbid, BMI 50 or higher E66.01 Anxiety F41.9 GERD (gastroesophageal reflux disease) K21.9 Asthma J45.909 Hypertension I10
[2023-05-06 17:21] LABS: Troponin I High Sensitivity 3.7 pg/ml (0-14)
[2023-05-06] MEDS ORDERED: POLYETHYLENE (MIRALAX) 17 GM PACK PO PRN (17:44)
[2023-05-06] MEDS ORDERED: DEXTROSE 50% 50 ML SYRINGE IV PRN (17:44)
[2023-05-06] MEDS ORDERED: CARBOHYDRATES FOR HYPOGLYCEMIA PO PRN (17:44)
[2023-05-06] MEDS ORDERED: ONDANSETRON INJ 2 MG/ML 2 ML VIAL IV PRN (17:44)
[2023-05-06] MEDS ORDERED: GLUCAGON FOR INJ 1 MG VIAL SQ PRN (17:44)
[2023-05-06] MEDS ORDERED: GLUCOSE 10 TAB/TUBE PO PRN (17:44)
[2023-05-06] MEDS ORDERED: GLUCOSE 40% GEL 15 GM TUBE PO PRN (17:44)
[2023-05-06] MEDS ORDERED: POTASSIUM CHLORIDE CRTAB 20 MEQ TABCR PO STA (17:44)
[2023-05-06 17:52] LABS: Influenza A virus by PCR Negative (Neg); Influenza B virus by PCR Negative (Neg); RSV by PCR Negative (Neg); SARS CoV2 RNA(COVID-19) Ceph NEGATIVE (Negative)
[2023-05-06 18:02] LABS: Appearance Urine Clear (Clear); Bilirubin Urine Negative (Negative); Blood Urine Negative (Negative); Color Urine Yellow; Glucose Urine UA 3+ (Negative); Ketones Urine 1+ (Negative); Leukocyte Esterase Urine Negative (Negative); Nitrite Urine Negative (Negative); Protein Urine Negative (Negative); Specific Gravity Urine 1.015 (1.000-1.030); Urobilinogen Urine Negative (Negative); pH Urine 7.5 (4.5-7.5)
[2023-05-06] MEDS ORDERED: LORazepam 0.5 MG TAB PO PRN (21:22)
[2023-05-06] MEDS ORDERED: NON-FORMULARY MEDICATION (Cyanocobalamin (Vitamin B-12) 1,000 mcg/mL Kit) IM SCH (21:22)
[2023-05-06] MEDS: LANTUS PER UNIT CHARGE SQ SCH (22:23)
[2023-05-06] MEDS: INSULIN ASPART PER UNIT CHARGE SC SCH (22:23)
[2023-05-06] MEDS: ENOXAPARIN INJ 40 MG/0.4 ML SYR SQ SCH (22:23)
[2023-05-06] MEDS: ACETAMINOPHEN 325 MG TAB PO PRN (22:23)
[2023-05-06] MEDS: ESCITALOPRAM OXALATE 20 MG TAB PO SCH (22:24)
[2023-05-06] MEDS: PANTOprazole 40 MG TAB PO SCH (22:24)
[2023-05-06] MEDS: busPIRone 15 MG TAB PO SCH (22:25)
[2023-05-06] MEDS: CYCLOBENZAPRINE HCL 10 MG TAB PO SCH (22:25)
[2023-05-06] MEDS: POTASSIUM CHLORIDE CRTAB 20 MEQ TABCR PO SCH (22:25)
[2023-05-06] MEDS ORDERED: SENNA 8.6 MG TAB PO ONE (23:14)
[2023-05-06] MEDS ORDERED: POLYETHYLENE (MIRALAX) 17 GM PACK PO ONE (23:15)
[2023-05-06] MEDS ORDERED: diphenhydrAMINE Capsule 25 MG CAP PO ONE (23:55)
--- OUTSIDE RECORDS SUMMARY | 2023-05-07 | External Medical Summary | Continuity of Care Document ---
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 Name Role Phone Tiny Hager Primary Care Physician [phone] [id number] Date(s): 03/08/23 - 03/08/[address] [place] [address], [address] [place] [address] [phone] Encounter Diagnosis Diabetes mellitus, type 2(Discharge Diagnosis) - 03/08/23 B12 deficiency(Discharge Diagnosis) - 03/08/23 Itch(Discharge Diagnosis) - 03/08/23 Mass of right lower leg(Discharge Diagnosis) - 03/08/23 Discharge Disposition: Home or Self Care Attending Physician: DO Hager Kristen M Referring Physician: DO Hager Kristen M Allergies, Adverse Reactions, Alerts Substance Reaction Severity Status codeine Nausea headache Active clindamycin redness of eyes and tongue A ctive penicillins 1, 2, 3 i Itching Hives rash, GI upset Active narcotic analgesics nausea Active Excedrin Migraine upset stomach Active Keflex Vomiting Active Imitrex Tachycardia Active Ambien sleep walks Active Zyrtec shakey Active Unable to Obtain Allergy 4 headache, nausea Active tree nuts Migraines Active IVP dye Swelling Active Cryselle 28 chronic headache Active Allergy Not found in Search environmental allergies Active 1Stars she in not allergic to PCN 2states she is allergic to PCN 3staes she is allergic to PCN 4Allergic to: Oils, aged cheese, chocolate, all pain meds Assessment and Plan Extracted from: Title:Office Visit Note Author:DO Hager Kriste n M Date:03/08/23 1.Diabetes mellitus, type 2 Chronic condition, stable Goal:Resolution Data:unique tests ordered: _ Plan: _she is going to wait till May to restart mounjaro 2.B12 deficiency Chronic condition, stable Goal:Resolution Data:unique tests ordered: _ Plan: _B12 injection 3.Itch Chronic condition, stable Goal:Resolution Data:unique tests ordered: _ Plan: _atarax 4.Mass of right lower leg Chronic condition, stable Goal:Resolution Data:unique tests ordered: _ Plan: _MRI and ortho referral very concerning--pt with neurological deficit and changes since growth. Immunizations Given and Recorded Vaccine Date Status Refusal Reason influenza virus vaccine, inactivated 03/08/23 Give n influenza virus vaccine, inactivated 1 01/28/22 Gi jenny influenza virus vaccine, inactivated 02/05/21 Give n influenza virus vaccine, inactivated 02/19/20 Give n influenza virus vaccine, inactivated 02/09/19 Give n influenza virus vaccine, inactivated 2 03/07/18 Gi jenny influenza virus vaccine, inactivated 01/11/17 Give n influenza virus vaccine, inactivated 02/10/16 Give n influenza virus vaccine, inactivated 01/28/15 Give n influenza virus vaccine, inactivated 01/22/14 Give n influenza virus vaccine, inactivated 02/27/13 Give n SARS-CoV-2 mRNA (Pfizer 12+) bivalent 3 09/24/22 G iven SARS-CoV-2 (COVID-19) mRNA BNT-162b2 vax 03/19/21 Given tetanus/diphtheria/pertuss, acel (Tdap) 12/09/15 G iven tetanus/diphtheria/pertuss, acel (Tdap) 09/21/05 R ecorded measles/mumps/rubella virus vaccine 4 10/24/14 Giv en pneumococcal 23-valent vaccine 06/21/98 Recorded 1Result Comment: dmitriy fiore cma 2Early/Late Reason: Other : busy 3Early/Late Reason: Early/Late Reason: Clinic schedule 4Result Comment: Diluent [id number] Exp11/13/16 Medications acetaminophen/butalbital/caffeine 325 mg-50 mg-40 mg oral tablet Start: 02/17/23 16:01:00 EDT, See Instructions, Disp# 30 tab, Refills: 0, TAKE 1 TABLET BY MOUTH EVERY 6 HOURS NEEDED FOR HEADACHE, Pharmacy: [facility] Start Date: 02/17/23 Status: Ordered betamethasone-clotrimazole 0.05%-1% topical cream Start: 12/10/22 16:48:00 EDT, See Instructions, Disp# 45 g, Refills: 11, APPLY TOPICALLY TO AFFECTED AREA DAILY, Pharmacy: [facility] [id number] Start Date: 12/10/22 Status: Ordered busPIRone 30 mg oral tablet Start: 11/09/22 14:06:00 EDT, See Instructions, Disp# 60 tab, Refills: 6, Take 1 tablet by mouth twice daily, Pharmacy: [facility] [id number] Start Date: 11/09/22 Status: Ordered cyclobenzaprine 10 mg oral tablet Start: 11/04/22 13:01:00 EDT, See Instructions, Disp# 270 tab, Refills: 0, TAKE 1 TABLET BY MOUTH THREE TIMES DAILY, Pharmacy: [facility] [id number] Start Date: 11/04/22 Status: Ordered escitalopram 20 mg oral tablet Start: 08/27/22 11:18:00 EDT, 1 tab, PO, Daily, Disp# 90 tab, Refills: 3, Pharmacy: [facility] [address] Start Date: 08/27/22 Status: Ordered gabapentin 300 mg oral capsule Start: 08/27/22 11:18:00 EDT, 1 cap, PO, bid, Disp# 180 cap, Refills: 3, Pharmacy: [facility] Start Date: 08/27/22 Stop Date: 08/22/23 Status: Ordered glipiZIDE 5 mg oral tablet, extended release Start: 08/27/22 11:18:00 EDT, 2 tab, PO, Daily, Disp# 180 tab, Refills: 3, Pharmacy: [facility] [id number] Start Date: 08/27/22 Stop Date: 08/22/23 Status: Ordered hydroCHLOROthiazide 50 mg oral tablet Start: 11/16/22 17:37:00 EDT, See Instructions, Disp# 90 tab, Refills: 0, Take 1 tablet by mouth once daily, Pharmacy: [facility] [id number] Start Date: 11/16/22 Status: Ordered hydrOXYzine hydrochloride 25 mg oral tablet Start: 03/08/23 15:25:00 EDT, 2 tab, PO, qid, Disp# 100 tab, Refills: 3, PRN: as needed for itching, Pharmacy: [facility] Start Date: 03/08/23 Status: Ordered itraconazole 100 mg oral capsule Start: 11/26/22 11:55:00 EDT, See Instructions, Disp# 30, Refills: 0, 1 cap PO Daily for 7 days Q month, Pharmacy: [id number] Start Date: 11/26/22 Status: Ordered Jardiance 25 mg oral tablet Start: 11/26/22 11:50:00 EDT, 1 tab, PO, Daily, Disp# 30 tab, Refills: 3, Pharmacy: [facility] [address] Start Date: 11/26/22 Status: Ordered ketoconazole 2% topical cream Start: 09/09/22 14:12:00 EDT, 1 appl, topical, bid, Disp# 60 g, Refills: 1, to AA Under belly, Pharmacy: [facility] [address] Start Date: 09/09/22 Status: Ordered lancets Start: 08/13/21 14:58:00 EDT, See Instructions, Disp# 1 kit, Refills: 0, check BSG once daily, Pharmacy: [facility] Start Date: 08/13/21 Status: Ordered LORazepam 0.5 mg oral tablet Start: 08/27/22 11:18:00 EDT, 1 tab, PO, Daily, Disp# 30 tab, Refills: 1, prn, PRN: as needed for anxiety, Pharmacy: [facility] [address] Start Date: 08/27/22 Status: Ordered Mounjaro 7.5 mg/0.5 mL subcutaneous solution Start: 02/22/23 9:39:00 EDT, 7.5 mg =, subQ, q7days, Disp# 1 kit, Refills: 0, Pharmacy: [facility] [address] Start Date: 02/22/23 Status: Ordered omeprazole 20 mg oral delayed release capsule Start: 08/27/22 11:18:00 EDT, 1 cap, PO, bid, Disp# 180 cap, Refills: 3, Pharmacy: [facility] Start Date: 08/27/22 Stop Date: 08/22/23 Status: Ordered One Touch Verio Glucose Monitor Start: 08/14/21 9:05:00 EDT, See Instructions, Disp# 1 kit, Refills: 0, Use to test BSG once daily,Note to Pharmacy: Dx: E11.9;, Pharmacy: [facility] [address] Start Date: 08/14/21 Status: Ordered One Touch Verio Test Strips Start: 08/12/21 16:00:00 EDT, See Instructions, Disp# 100 strip, Refills: 5, Pt to test sugars 1 time daily. E11.9, Pharmacy: [facility] [address] Start Date: 08/12/21 Status: Ordered propranolol 40 mg oral tablet Start: 08/27/22 11:18:00 EDT, 1 tab, PO, qAM, Disp# 90 tab, Refills: 3, Pharmacy: [facility] [address] Start Date: 08/27/22 Stop Date: 08/22/23 Status: Ordered simvastatin 20 mg oral tablet Start: 08/27/22 11:18:00 EDT, 1 tab, PO, qhs, Disp# 90 tab, Refills: 3, Pharmacy: [facility] [address] Start Date: 08/27/22 Status: Ordered tiZANidine 4 mg oral tablet Start: 02/11/23 11:40:00 EDT, See Instructions, Disp# 90 tab, Refills: 0, TAKE 1 TABLET BY MOUTH EVERY 8 HOURS, Pharmacy: [facility] [address] Start Date: 02/11/23 Status: Ordered traZODone 100 mg oral tablet Start: 02/15/23 12:39:00 EDT, See Instructions, Disp# 180 tab, Refills: 0, TAKE 2 TABLETS BY MOUTH ONCE DAILY AT BEDTIME, Pharmacy: [facility] [address] Start Date: 02/15/23 Status: Ordered Vitamin D3 50,000 intl units (1250 mcg) oral capsule Start: 08/27/22 11:18:00 EDT, 1 cap, PO, q7days, Disp# 12 cap, Refills: 6, Pharmacy: [facility] Start Date: 08/27/22 Status: Ordered Zofran ODT 4 mg oral tablet, disintegrating Start: 02/24/23 15:12:00 EDT, 1 tab, PO, tid, Disp# 10 tab, Refills: 0, PRN: as needed for nausea/vomiting, Pharmacy: [facility] Start Date: 02/24/23 Status: Ordered Mental Status 10/23/23 Barriers to Learning one year None evide nt Mandatory Health Literacy Documentation Yes Health Literacy Communication Barriers N ever Primary Language Bhutanese Problem List Condition Confirmation Course Effective Dates Status H ealth Status Informant Anemia Confirmed Active Anxiety Confirmed Active B12 deficiency Confirmed Active Basal cell carcinoma (BCC) Confirmed Active Abnormal bone xray Confirmed Active Candidal intertrigo Confirmed Active Cough Confirmed Active Controlled diabetes mellitus with diabetic nephropathy Confirmed Active Diabetes Confirmed Active Uncontrolled diabetes mellitus with hyperglycemia Confirmed Active Fall at home Confirmed Active Low ferritin Confirmed Active Left hip pain Confirmed Active Hyperlipidemia Confirmed Active Intertrigo Confirmed Active Itch Confirmed Active Itch of skin Confirmed Active Low back pain Confirmed Active Lumbar radiculopathy Confirmed Active Mass of right lower leg Confirmed Active MIGRAINE Confirmed Active Migraine variant Confirmed Active Leg weakness Confirmed Active Lumbar disc narrowing Confirmed Active morbid obesity 1 Confirmed Active Tinea unguium Confirmed Active Leg pain, right Confirmed Active Acquired premature ovarian failure Confirmed Active Depression, major, recurrent, moderate Confirmed Active Sjogren's disease Confirmed Active Sleep disorder Confirmed Active Diabetes mellitus, type 2 Confirmed Active Uncontrolled type 2 diabetes mellitus with hypoglycemia, without long-term current use of insulin Confirmed Active Vitamin D deficiency Confirmed Active 1BMI >40 Diagnosis Diagnosis Type Effective Dates Health Status Clinical Service Informant Diabetes mellitus, type 2 Discharge Diagnosis 03/08/23 Itch Discharge Diagnosis 03/08/23 Mass of right lower leg Discharge Diagnosis 03/08/23 B12 deficiency Discharge Diagnosis 03/08/23 Procedures Procedure Date Related Diagnosis Body Site Status Epidural steroid injection 1 12/19/20 Completed Mohs surgery 10/15/20 Completed Shave biopsy and cauterization of skin 09/12/20 Completed Plain X-ray of right hand 2 06/26/20 Completed Diabetic Eye examination 3 03/26/20 Completed Lumbar spinal stenosis surgery 4, 5 02/07/20 Completed Surgical 6 10/04/19 Completed Magnetic resonance angiography 7 06/19/19 Completed MRA OF THE NECK WITH MIP IMAGES 8 06/19/19 Completed Ultrasound 9 02/17/19 Completed Dilation and curettage 04/13/16 Co mpleted Hysteroscopy 04/13/16 Completed MRI,lumbar spine 04/01/16 Complete d US scan of abdomen and pelvis 10 01/08/16 Completed Punch biopsy 11 03/21/14 Completed Colonoscopy 12 02/19/14 Completed lap sleeve gastrectomy 2011 Co mpleted Bilateral Carpal Tunnel Rele asem (2009 & 2010) 13 2010 Completed Cervical Fusion (C4- C5) 14, 15 2006 Completed Cervical spine Fusion (C5- C6 16 2002 Completed ACL - Repair of anterior cru ciate ligament, Left 17 04/16/90 Completed cyst removal from Scap 18 1987 Completed MRI OF THE BRAIN AND INTERNA L AUDITORY CANALS 19 Completed 1K5-S1 2Impression: No fracture or dislocation within the right hand. 3Type 2 daibetes mellitus with early cataracts, no retinopathy 4Lumbar stenosis with lumbar radiculopathy 5Injection 6Surgery 7MRA OF THE BRAIN WITH MIP IMAGES The left posterior cerebral artery is small in size and is partially supplied by the left posteriorcommunicating artery. No aneurysm is demonstarted. 8CONCLUSION: No significant stenosis is demonstrated in the common carotid or internal carotid arteries. 9Findings suggest a small lipoma within the subcutaneous tissue at the site of clinical concern. 10The endometrial stripe measures up to 7mm in thickness. This is greater than expected if the patient is postmenopausal. Cliical correction will be required. Gynecologic follow-up is recomended. The left ovary was not visualized. The right ovary is grossly normal as visulized but not well assessed 11right lower leg 12Repeat colonoscopy in 10 years Normal colon 13right , left 2009 2010 14C t 5 15C4 C6 plates and screws. 16fusion 17left; for torn meniscus 18removed from top of head 19MR OASIS BRAIN CRANIAL NERVES W WOUT SHEILA No acute intracranial pathology is demonstrated. no acute ischemia is seen. No abnormality is seen in the internal auditory canals. Two small foci of increased signal intensity are seen in the white matter in the right frontal lobeon the FLAIR images which are nonspecific an may not be significant. Similar foci can be seen with chronic small vessel ischemia, migraines, or previous head trauma Vital Signs Most recent to oldest [Reference Range]: 1 Patient Weight 133.6 kg (03/08/23 3:02 PM) Temperature [36.5-37.9 DegC] 36.7 DegC (03/08/23 3:02 PM) Blood Pressure 116/72mmHg (03/08/23 3:02 PM) Cuff Pulse Pressure 44 mmHg (03/08/23 3:02 PM) Social History Social History Type Response Smoking Status Never smoked cigaret crispin Sex Female FCM Outpt Note * DO Hager Kristen M: PERFORM, MODIFY Event Display: FCM Outpt Note Authored Date: [id number] Chief Complaint Pt here for 1 mo f/u History of Present Illness Pt presents for her 1 month follow up. She is now in the donut hole and can't get her mounjaro.Pt states she has been taking her hydroxine for itch and it usually works pretty well but it is notformulary. Pt states she has a mass that is getting bigger on her lower extremity and then another has now dev above the knee. Physical Exam Vitals & Measurements T:36.7C BP:116/72 SpO2:94% WT:133.600kg(Dosing) WT:133.6kg G: AAAOx3, NAD H: RR normal S1/S2 no M/R/G L: CTA b/l no r/r/w A: soft +bs nt nd E: no c/C/E b/l, pos distal pulses MSK: large mass--soft ball size lower extremity nontender, mass above the knee lemon size nontender P: normal affect and insight, no homicidal/suicidal ideation Assessment/Plan 1.Diabetes mellitus, type 2 Chronic condition, stable Goal:Resolution Data:unique tests ordered: _ Plan: _she is going to wait till May to restart mounjaro 2.B12 deficiency Chronic condition, stable Goal:Resolution Data:unique tests ordered: _ Plan: _B12 injection 3.Itch Chronic condition, stable Goal:Resolution Data:unique tests ordered: _ Plan: _atarax 4.Mass of right lower leg Chronic condition, stable Goal:Resolution Data:unique tests ordered: _ Plan: _MRI and ortho referral very concerning--pt with neurological deficit and changes since growth. Attestation I spent8 mintime in previsit planning including prepping note and chart review . I spent32 time in face to face interaction with patient concerning the issues that brought them in today. I spent2 min time in post visit planning including finishing note and depart process Total time spent today on patient visit42 min Problem List/Past Medical History Ongoing Abnormal bone xray Acquired premature ovarian failure Anemia Anxiety B12 deficiency Basal cell carcinoma (BCC) Candidal intertrigo Controlled diabetes mellitus with diabetic nephropathy Cough Depression, major, recurrent, moderate Diabetes Diabetes mellitus, type 2 Fall at home Hyperlipidemia Hypokalemia Intertrigo Itch of skin Left hip pain Leg pain, right Leg weakness Low back pain Low ferritin Lumbar disc narrowing Lumbar radiculopathy MIGRAINE Migraine variant morbid obesity Sjogren's disease Sleep disorder Tinea unguium Uncontrolled diabetes mellitus with hyperglycemia Uncontrolled type 2 diabetes mellitus with hypoglycemia, without long-term current use of insulin Vitamin D deficiency Historical Abnormal laboratory test result Acute bronchitis Acute cystitis Acute sinusitis Acute upper respiratory infection Allergic contact dermatitis Anemia, iron deficiency Arthritis Arthritis of knee Asthma exacerbation Back pain CURRY'S PALSY Chest pain Chondromalacia of patella, right Chronic back pain Chronic neck pain Chronic vaginitis Circadian rhythm sleep disorder Concussion CONGESTIVE HEART FAILURE, UNSPECIFIED CRP elevated Dental caries DEPRESSION Dizziness DJD (degenerative joint disease) Dysfunctional uterine bleeding Endometrial polyp Fibromyositis Yves hematuria GGT - Gamma-glutamyl transferase High vitamin D level Hyperglycemia Hyperuricemia Iliotibial band syndrome of left side Impaired glucose tolerance Left flank pain Lymph edema Medicare annual wellness visit, initial Morbid obesity Muscle spasm Neck pain Pain in lower jaw Pain, dental Post-menopausal bleeding Reactive airways dysfunction syndrome without complication S/P laparoscopic sleeve gastrectomy Spinal stenosis of lumbar region Stasis dermatitis GARY (stress urinary incontinence, female) Tension headache Tinea pedis Torn meniscus TPO - Thyroid peroxidase antibody Ulnar nerve damage Vaginal pain Vaginitis Weight disorder Wheeze Procedure/Surgical History Epidural steroid injection (12/19/2020)Mohs surgery (10/15/2020)Shave biopsy and cauterization of skin (09/12/2020)Plain X-ray of right hand (06/26/2020)Diabetic Eye examination (03/26/2020)Lumbar spinal stenosis surgery (02/07/2020)Surgical (10/04/2019)Magnetic resonance angiography (06/19/2019)MRA OF THE NECK WITH MIP IMAGES (06/19/2019)Ultrasound (02/17/2019)Hysteroscopy (04/13/2016)Dilation and curettage (04/13/2016)MRI,lumbar spine (04/01/2016)US scan of abdomen and pelvis (01/08/2016)Punch biopsy (03/21/2014)Colonoscopy (02/19/2014)lap sleeve gastrectomy (2011) Bilateral Carpal Tunnel Releasem (2009 & 2010) (2010) Cervical Fusion (C4- C5) (2006)Cervical spine Fusion (C5- C6 (2002)ACL - Repair of anterior cruciate ligament, Left (04/16/1990)cyst removal from Scap (1987)MRI OF THE BRAIN AND INTERNAL AUDITORY CANALS Medications acetaminophen/butalbital/caffeine(acetaminophen/butalbital/caffeine 325 mg-50 mg-40 mg oral tablet), See Instructions betamethasone-clotrimazole topical(betamethasone-clotrimazole 0.05%-1% topical cream), See Instructions, 11 refills busPIRone(busPIRone 30 mg oral tablet), See Instructions, 6 refills cholecalciferol(Vitamin D3 50,000 intl units (1250 mcg) oral capsule), [address] Int_Unit= 1 cap, PO, q7days, 6 refills cyclobenzaprine(cyclobenzaprine 10 mg oral tablet), See Instructions diabetes supplies(One Touch Verio Test Strips), See Instructions, 5 refills diabetes supplies(lancets), See Instructions diabetes supplies(One Touch Verio Glucose Monitor), See Instructions empagliflozin(Jardiance 25 mg oral tablet), 25 mg= 1 tab, PO, Daily, 3 refills escitalopram(escitalopram 20 mg oral tablet), 20 mg= 1 tab, PO, Daily, 3 refills gabapentin(gabapentin 300 mg oral capsule), 300 mg= 1 cap, PO, bid, 3 refills glipiZIDE(glipiZIDE 5 mg oral tablet, extended release), 10 mg= 2 tab, PO, Daily, 3 refills hydroCHLOROthiazide(hydroCHLOROthiazide 50 mg oral tablet), See Instructions hydrOXYzine(Vistaril 25 mg oral capsule), See Instructions, PRN, 11 refills itraconazole(itraconazole 100 mg oral capsule), See Instructions ketoconazole topical(ketoconazole 2% topical cream), 1 appl, topical, bid, 1 refills LORazepam(LORazepam 0.5 mg oral tablet), 0.5 mg= 1 tab, PO, Daily, PRN, 1 refills omeprazole(omeprazole 20 mg oral delayed release capsule), 20 mg= 1 cap, PO, bid, 3 refills ondansetron(Zofran ODT 4 mg oral tablet, disintegrating), 4 mg= 1 tab, PO, tid, PRN propranolol(propranolol 40 mg oral tablet), 40 mg= 1 tab, PO, qAM, 3 refills simvastatin(simvastatin 20 mg oral tablet), 20 mg= 1 tab, PO, qhs, 3 refills tirzepatide(Mounjaro 7.5 mg/0.5 mL subcutaneous solution), 7.5 mg, subQ, q7days tiZANidine(tiZANidine 4 mg oral tablet), See Instructions traZODone(traZODone 100 mg oral tablet), See Instructions Allergies Allergy Not found in Searchenvironmental allergies Ambiensleep walks Cryselle 28chronic headache Excedrin Migraineupset stomach IVP dyeSwelling ImitrexTachycardia KeflexVomiting Unable to Obtain Allergyheadache, nausea Zyrtecshakey clindamycinredness of eyes and tongue codeineNausea, headache narcotic analgesicsnausea penicillinsi, Itching, Hives, rash, GI upset tree nutsMigraines Social History Smoking Status Never smoked cigarettes Alcohol - Denies Alcohol Use Substance Abuse - Denies Substance Abuse Tobacco - Denies Tobacco Use Use:Never smoker Family History Angina: Father. Diabetes: Father. Heart attack: Father. High Blood Pressure: Mother and Father. Kidney disease: Father. Liver disease: Father. Health Status Family Member(s) Sister: History is negative Immunizations Vaccine Date Status SARS-CoV-2 mRNA ([employer] (deja mi) 12+) bivalent 09/24/2022 Given Comments : Early/Late Reason: Clinic schedule influenza virus vaccine, inactivated 01/28/2022 Given Comments : dmitriy fiore [facility] SARS-CoV-2 (COVID-19) mRNA BNT-162b2 vax 03/19/2021 Given influenza virus vaccine, inactivated 02/05/2021 Given influenza virus vaccine, inactivated 02/19/2020 Given influenza virus vaccine, inactivated 02/09/2019 Given influenza virus vaccine, inactivated 03/07/2018 Given Comments : Other : busy influenza virus vaccine, inactivated 01/11/2017 Given influenza virus vaccine, inactivated 02/10/2016 Given tetanus/diphtheria/pertuss, acel (Tdap) 12/09/2015 Given influenza virus vaccine, inactivated 01/28/2015 Given measles/mumps/rubella virus vaccine 10/24/2014 Given Comments : Diluent [id number] Exp11/13/16 influenza virus vaccine, inactivated 01/22/2014 Given influenza virus vaccine, inactivated 02/27/2013 Given tetanus/diphtheria/pertuss, acel (Tdap) 09/21/2005 Recorded pneumococcal 23-valent vaccine 06/21/1998 Recorded Recommendations Health Maintenance Pending(in the next year) OverDue Diabetic Eye Exam due03/27/22and every 731day Adult Influenza Vaccine due11/14/22and every 1year Due Adult COVID-19 Vaccination due03/08/23Unknown Frequency Hepatitis C Screening due03/08/23One-time only Pneumococcal Vaccine Adults and Adolescents with Chronic Illness due03/08/23One-time only Shingles Vaccine due03/08/23One-time only Due In Future Body Mass Index not due until06/19/23and every 1year Diabetes Management A1c not due until08/20/23and every 1year Colorectal Cancer Screening not due until02/17/24and every 10year Satisfied(in the past 1 year) Satisfied Adult COVID-19 Vaccination on09/24/22.Satisfied by SHAZIA Alegria, Anne Body Mass Index on06/19/22.Satisfied by MAYA Mcfarlane, Kailey Breast Cancer Screening on11/30/22.Satisfied by MAYA Selby, Kailey Cervical Cancer Screening on05/27/22. Diabetes Management A1c on08/20/22.Satisfied by Contributor_system, [email or web address] Diabetes Nephropathy Management on09/08/22.Satisfied by Contributor_system, [email or web address] Lipid Screening on08/20/22.Satisfied by Contributor_system, [email or web address] Electronic Signature on File Electronically Reviewed/Signed by: Tiny Hager DO Author Signature Dt/Tm:03/08/2023 03:50 PM Department of Family Medicine [facility] [place] Care team information Care Team Personnel Name: CAILIN Pham Tara Position: Nurse Pract - Family Med Member Role: Lifetime Relationship Address: Address: [address] [place] [address] [place] Name: DO Palumbo Franklin J Position: Physician - Family Med Member Role: Lifetime Relationship Address: Address: [address] [facility] [place] [place] [address] [place] [address] [place] Name: DO Hager Kristen M Position: Physician - Family Med Member Role: Primary Care Provider Address: Address: [address] [place] [address] [place] Name: CAILIN Layton Anna L Position: Nurse Pract - Female Pelvic Med Member Role: Lifetime Relationship Address: Address: [address] [address] [place] [address] [place] Name: MD Raoul, Aida Mason Position: Physician - Surgery MIS Member Role: Lifetime Relationship Address: Address: [address] [facility] [place] [address] [place] Name: COURTNEY Ojeda Christina L Position: Physician - Podiatry Member Role: Lifetime Relationship Address: Address: [address] [facility] [address] [place] [address] Name: MD Sinclair David L Position: Physician - Derm Member Role: Lifetime Relationship Address: Address: [address] [facility] [address] [place] [address] Care Team Related Persons Name: YVES HORNER Address: home [address] [place], [place] [id number] Name: YENIFER HORNER Address: [facility] Address: home [address] [place], [place] [id number]
--- OUTSIDE RECORDS SUMMARY | 2023-05-07 | External Medical Summary | Continuity of Care Document ---
Author Name Unknown Organization [facility] [address] [facility] [address] Address [address] [place], [place] [id number] Care Team Providers Care Materials Assistant Name Role Phone Tiny Hager Primary Care Physician [phone] Encounter [facility] [id number] Date(s): 05/03/23 - 05/03/23 [facility] [address] [facility] [address] [facility] [address] [place], [place] [phone] Encounter Diagnosis Type 2 diabetes mellitus without complications(Final) - Pruritus, unspecified(Final) - Pressure ulcer of unspecified site, unspecified stage(Final) - Discharge Disposition: Home or Self Care Attending Physician: DO Hager Kristen M Referring Physician: DO Hager Kristen M Allergies, Adverse Reactions, Alerts Substance Reaction Severity Status codeine Nausea headache Active clindamycin redness of eyes and tongue A ctive aspirin upset stomach Active penicillins 1, 2, 3 i Itching Hives rash, GI upset Active narcotic analgesics nausea Active Excedrin Migraine upset stomach Active Ambien sleep walks Active Keflex Vomiting Active Imitrex Tachycardia Active Zyrtec shakey Active Nickel Rash Active IVP dye Swelling Active Allergy Not found in Search environmental allergies Active Unable to Obtain Allergy 4 headache, nausea Active tree nuts Migraines Active Cryselle 28 chronic headache Active 1Stars she in not allergic to PCN 2states she is allergic to PCN 3staes she is allergic to PCN 4Allergic to: Oils, aged cheese, chocolate, all pain meds Immunizations Given and Recorded Vaccine Date Status Refusal Reason SARS-CoV-2 (COVID-19) mRNA-vacc - [id number] 04/05/23 Recorded influenza virus vaccine, inactivated 03/08/23 Give n [...] vaccine 06/21/98 Recorded 1Result Comment: [facility] 2Early/Late Reason: Other : busy 3Early/Late Reason: Early/Late Reason: Clinic schedule 4Result Comment: Diluent [id number] Exp11/13/16 Medications acetaminophen/butalbital/caffeine 325 mg-50 mg-40 mg oral tablet Start: 03/25/23 10:43:00 EST, See Instructions, Disp# 30 tab, Refills: 0, TAKE 1 TABLET BY MOUTH EVERY 6 HOURS NEEDED FOR HEADACHE, Pharmacy: [facility] [address] Start Date: 03/25/23 Status: Ordered betamethasone-clotrimazole 0.05%-1% topical cream Start: 12/10/22 16:48:00 EDT, See Instructions, Disp# 45 g, Refills: 11, APPLY TOPICALLY TO AFFECTED AREA DAILY, Pharmacy: [facility] [address] Start Date: 12/10/22 Status: Ordered busPIRone 30 mg oral tablet Start: 11/09/22 14:06:00 EDT, See Instructions, Disp# 60 tab, Refills: 6, Take 1 tablet by mouth twice daily, Pharmacy: [facility] [address] Start Date: 11/09/22 Status: Ordered cyclobenzaprine 10 mg oral tablet Start: 11/04/22 13:01:00 EDT, See Instructions, Disp# 270 tab, Refills: 0, TAKE 1 TABLET BY MOUTH THREE TIMES DAILY, Pharmacy: [facility] [address] Start Date: 11/04/22 Status: Ordered Diflucan 100 mg oral tablet Start: 04/05/23 12:00:00 EST, 1 tab, PO, Daily, Disp# 10 tab, Refills: 0, Pharmacy: [facility] [address] Start Date: 04/05/23 Stop Date: 04/15/23 Status: Ordered escitalopram 20 mg oral tablet Start: 08/27/22 11:18:00 EDT, 1 tab, PO, Daily, Disp# 90 tab, Refills: 3, Pharmacy: [place] [id number] Start Date: 08/27/22 Status: Ordered gabapentin 300 mg oral capsule Start: 08/27/22 11:18:00 EDT, 1 cap, PO, bid, Disp# 180 cap, Refills: 3, Pharmacy: [facility] Start Date: 08/27/22 Stop Date: 08/22/23 Status: Ordered glipiZIDE 5 mg oral tablet, extended release Start: 08/27/22 11:18:00 EDT, 2 tab, PO, Daily, Disp# 180 tab, Refills: 3, Pharmacy: [place] [address] Start Date: 08/27/22 Stop Date: 08/22/23 Status: Ordered hydroCHLOROthiazide 50 mg oral tablet Start: 11/16/22 17:37:00 EDT, See Instructions, Disp# 90 tab, Refills: 0, Take 1 tablet by mouth once daily, Pharmacy: [place] [address] Start Date: 11/16/22 Status: Ordered hydrOXYzine hydrochloride 25 mg oral tablet Start: 03/08/23 15:25:00 EDT, 2 tab, PO, qid, Disp# 100 tab, Refills: 3, PRN: as needed for itching, Pharmacy: [place] [address] Start Date: 03/08/23 Status: Ordered itraconazole 100 mg oral capsule Start: 11/26/22 11:55:00 EDT, See Instructions, Disp# 30, Refills: 0, 1 cap PO Daily for 7 days Q month, Pharmacy: [facility] Start Date: 11/26/22 Status: Ordered Jardiance 25 mg oral tablet Start: 11/26/22 11:50:00 EDT, 1 tab, PO, Daily, Disp# 30 tab, Refills: 3, Pharmacy: [place] [address] Start Date: 11/26/22 Status: Ordered ketoconazole 2% topical cream Start: 09/09/22 14:12:00 EDT, 1 appl, topical, bid, Disp# 60 g, Refills: 1, to AA Under belly, Pharmacy: [place] [address] Start Date: 09/09/22 Status: Ordered lactulose 10 g/15 mL oral syrup Start: 04/05/23 16:53:00 EST, 15 mL, PO, Daily, Disp# 240 mL, Refills: 3, PRN: as needed for constipation, Pharmacy: [place] [address] Start Date: 04/05/23 Status: Ordered lancets Start: 08/13/21 14:58:00 EDT, See Instructions, Disp# 1 kit, Refills: 0, check BSG once daily, Pharmacy: [place] [address] Start Date: 08/13/21 Status: Ordered LORazepam 0.5 mg oral tablet Start: 04/13/23 15:51:00 EST, 1 tab, PO, Daily, Disp# 30 tab, Refills: 1, prn, PRN: as needed for anxiety, Pharmacy: [place] [address] Start Date: 04/13/23 Status: Ordered Mounjaro 7.5 mg/0.5 mL subcutaneous solution Start: 02/22/23 9:39:00 EDT, 7.5 mg =, subQ, q7days, Disp# 1 kit, Refills: 0, Pharmacy: [place] [address] Start Date: 02/22/23 Status: Ordered omeprazole 20 mg oral delayed release capsule Start: 08/27/22 11:18:00 EDT, 1 cap, PO, bid, Disp# 180 cap, Refills: 3, Pharmacy: [place] [id number] Start Date: 08/27/22 Stop Date: 08/22/23 Status: Ordered One Touch Verio Glucose Monitor Start: 08/14/21 9:05:00 EDT, See Instructions, Disp# 1 kit, Refills: 0, Use to test BSG once daily,Note to Pharmacy: Dx: E11.9;, Pharmacy: [facility] [address] Start Date: 08/14/21 Status: Ordered One Touch Verio Test Strips Start: 08/12/21 16:00:00 EDT, See Instructions, Disp# 100 strip, Refills: 5, Pt to test sugars 1 time daily. E11.9, Pharmacy: [facility] [address] Start Date: 08/12/21 Status: Ordered propranolol 40 mg oral tablet Start: 08/27/22 11:18:00 EDT, 1 tab, PO, qAM, Disp# 90 tab, Refills: 3, Pharmacy: [facility] [address] Start Date: 08/27/22 Stop Date: 08/22/23 Status: Ordered simvastatin 20 mg oral tablet Start: 08/27/22 11:18:00 EDT, 1 tab, PO, qhs, Disp# 90 tab, Refills: 3, Pharmacy: [facility] [address] Start Date: 08/27/22 Status: Ordered tiZANidine 4 mg oral tablet Start: 03/17/23 14:28:00 EDT, 1 tab, PO, q8h, Disp# 90 tab, Refills: 0, Pharmacy: [facility] [address] Start Date: 03/17/23 Status: Ordered traZODone 100 mg oral tablet Start: 02/15/23 12:39:00 EDT, See Instructions, Disp# 180 tab, Refills: 0, TAKE 2 TABLETS BY MOUTH ONCE DAILY AT BEDTIME, Pharmacy: [facility] [address] Start Date: 02/15/23 Status: Ordered Vitamin D3 50,000 intl units (1250 mcg) oral capsule Start: 08/27/22 11:18:00 EDT, 1 cap, PO, q7days, Disp# 12 cap, Refills: 6, Pharmacy: [facility] [address] Start Date: 08/27/22 Status: Ordered Zofran ODT 4 mg oral tablet, disintegrating Start: 02/24/23 15:12:00 EDT, 1 tab, PO, tid, Disp# 10 tab, Refills: 0, PRN: as needed for nausea/vomiting, Pharmacy: [facility] [address] Start Date: 02/24/23 Status: Ordered Problem List Condition Confirmation Course Effective Dates [...] Confirmed Active Itch of skin Confirmed Active Lipoma Confirmed Active Benign lipomatous neoplasm of skin and subcutaneous tissue of right leg Confirmed Active Low back pain Confirmed Active Lumbar radiculopathy Confirmed Active Mass of right lower leg Confirmed Active MIGRAINE Confirmed Active Migraine variant Confirmed Active Leg weakness Confirmed Active Lumbar disc narrowing Confirmed Active morbid obesity 1 Confirmed Active Tinea unguium Confirmed Active Leg pain, right Confirmed Active Acquired premature ovarian failure Confirmed Active Pressure ulcer Confirmed Active Itchy skin Confirmed Active Depression, major, recurrent, moderate Confirmed Active Sjogren's disease Confirmed Active Sleep disorder Confirmed Active Diabetes mellitus, type 2 Confirmed Active Uncontrolled type 2 diabetes mellitus with hypoglycemia, without long-term current use of insulin Confirmed Active Vitamin D deficiency Confirmed Active 1BMI >40 Procedures Procedure Date Related Diagnosis Body Site [...] Colonoscopy 12 02/19/14 Completed lap sleeve gastrectomy 2012 Co mpleted Bilateral Carpal Tunnel Rele asem (2009 & 2010) 13 2010 Completed Cervical Fusion (C4- C5) 14, 15 2006 Completed Cervical spine Fusion (C5- C6 16 2002 Completed ACL - Repair of anterior cru ciate ligament, Left 17 04/16/90 Completed cyst removal from Scap 1987 Completed MRI OF THE BRAIN AND [...] vessel ischemia, migraines, or previous head trauma Results Laboratory List Name Date Complete Blood Count w Differential (CBC ,DIFFH) 05/03/23 Comprehensive Metabolic Panel (COMP META B PANEL) 05/03/23 T4, Free (T4, FREE) 05/03/23 Thyroid Stimulating Hormone (TSH) Vitamin B12 Level (VITAMIN B12) 05/03/23 Most recent to oldest [Reference Range]: 1 eGFR CKD-EPI [>60 mL/min/1.73 m2] >90 mL /min/1.73 m2 1 (05/03/23 1:28 PM) Estimated CrCl 143.15 mL/min (05/03/23 2:37 PM) MPV [9.0-12.2 fL] 9.5 fL (05/03/23 1:28 PM) Immature Gran% 0.6 % (05/03/23 1:28 PM) Neut% 68.1 % (05/03/23 1:28 PM) Lymph% 21.3 % (05/03/23 1:28 PM) [place]% 7.0 % (05/03/23 1:28 PM) Baso% 0.3 % (05/03/23 1:28 PM) Eos% 2.7 % (05/03/23 1:28 PM) Immat Gran, Abs [0-0.4 K/uL] 0.05 K/uL 2 (05/03/23 1:28 PM) Neut, Abs [2.0-7.7 K/uL] 6.01 K/uL (05/03/23 1:28 PM) Lymph, Abs [1.0-3.4 K/uL] 1.88 K/uL (05/03/23 1:28 PM) [place], Abs [0-1.0 K/uL] 0.62 K/uL (05/03/23 1:28 PM) Baso, Abs [0-0.1 K/uL] 0.03 K/uL (05/03/23 1:28 PM) Eos, Abs [0-0.5 K/uL] 0.24 K/uL (05/03/23 1:28 PM) Type of Diff: AUTO *Unknown* (05/03/23 1:28 PM) RDW [11.5-14.2 %] 14.3 % *HI* (05/03/23 1:28 PM) Anion Gap [5-14 mmol/L] 6 mmol/L (05/03/23 1:28 PM) Alb [3.5-5.0 g/dL] 3.9 g/dL (05/03/23 1:28 PM) Alk Phos [38-126 unit/L] 63 unit/L (05/03/23 1:28 PM) ALT [<35 unit/L] 20 unit/L (05/03/23 1:28 PM) AST [15-46 unit/L] 20 unit/L (05/03/23 1:28 PM) B12 [211-946 pg/mL] 672 pg/mL (05/03/23 1:28 PM) BUN [7-20 mg/dL] 9 mg/dL (05/03/23 1:28 PM) Ca [8.4-10.2 mg/dL] 9.0 mg/dL (05/03/23 1:28 PM) Cl- [96-107 mmol/L] 99 mmol/L (05/03/23 1:28 PM) HCO3 [22-30 mmol/L] 33 mmol/L *HI* (05/03/23 1:28 PM) Cret [0.60-1.00 mg/dL] 0.56 mg/dL *LOW* (05/03/23 1:28 PM) Glu [74-106 mg/dL] 171 mg/dL *HI* (05/03/23 1:28 PM) Hct [35-44 %] 41.7 % (05/03/23 1: PM) Hgb [11.7-15.0 g/dL] 13.6 g/dL (05/03/23 1: PM) K [3.5-5.1 mmol/L] 3.2 mmol/L *LOW* (05/03/23 1: PM) MCH [28-33 pg] 29.5 pg (05/03/23 1: PM) MCHC [32-36 g/dL] 32.6 g/dL (05/03/23 1:28 PM) MCV [81-96 fL] 90.5 fL (05/03/23 1:28 PM) Na [137-145 mmol/L] 138 mmol/L (05/03/23 1:28 PM) Plts [150-350 K/uL] 272 K/uL (05/03/23 1:28 PM) RBC [3.90-5.00 M/uL] 4.61 M/uL (05/03/23 1:28 PM) Free T4 [0.70-1.48 ng/dL] 1.05 ng/dL 3 (05/03/23 1:28 PM) T Bili [0.2-1.3 mg/dL] 0.5 mg/dL (05/03/23 1:28 PM) Prot [6.3-8.2 g/dL] 7.3 g/dL (05/03/23 1:28 PM) TSH [0.47-4.68 uIU/mL] 1.46 uIU/mL 4 (05/03/23 1:28 PM) WBC [4.0-10.4 K/uL] 8.83 K/uL (05/03/23 1:28 PM) 1Result Comment: Testing Performed By: Dept of Pathology [facility], [address] [place] [address], [place] [address] 2Result Comment: Testing Performed By: Dept of Pathology [facility], [address] [place] [address], [place] [address] 3Result Comment: Testing Performed By: Dept of Pathology [facility], [address] [place] [address], [place] [address] 4Result Comment: Testing Performed By: Dept of Pathology [facility], [address] [place] [address], [place] [address] Social History Social History Type Response Smoking Status Never smoked cigaret crispin Sex Female Patient Care team information Care Team Personnel Name: CAILIN Pham Tara Position: Nurse Pract - Family Med Member Role: Lifetime Relationship Address: Address: [address] [place] [id number] [place] Name: DO Palumbo Franklin J Position: Physician - Family Med Member Role: Lifetime Relationship Address: Address: [address] [facility] [address] [place] [address] [place] Name: DO Hager Kristen M Position: Physician - Family Med Member Role: Primary Care Provider Address: Address: [address] [facility] [address] [place] [address] [place] Name: CAILIN Layton Anna L Position: Nurse Pract - Female Pelvic Med Member Role: Lifetime Relationship Address: Address: [address] [facility] [address] [place] [address] [place] Name: MD Silveira Ann M Position: Physician - Surgery MIS Member Role: Lifetime Relationship Address: Address: [address] [place] [address] [place] Name: COURTNEY Ojeda Christina L Position: Physician - Podiatry Member Role: Lifetime Relationship Address: Address: [address] [facility] [address] [place] [address] [place] Name: MD Sinclair David L Position: Physician - Derm Member Role: Lifetime Relationship Address: Address: [address] [facility] [address] [place] [address] [place] Care Team Related Persons Name: WILLIAM HORNER Address: home [address] [place], [place] [phone] Name: YENIFER HORNER Address: [facility] Address: home [address] [place], [place] [id number]
--- OUTSIDE RECORDS SUMMARY | 2023-05-07 | External Medical Summary | Continuity of Care Document ---
Author Name Unknown Organization [id number] Address [address] [place] [id number] Care Team Providers Care Analysis Lead Name Role Phone Tiny Hager Primary Care Physician [phone] [id number] Date(s): 03/22/23 - 03/22/23 [facility] [place] [id number] Medicine [address] [place], [place] [id number] Encounter Diagnosis Diabetes(Discharge Diagnosis) - 03/22/23 Tinea unguium(Discharge Diagnosis) - 03/22/23 Discharge Disposition: Home or Self Care Attending Physician: COURTNEY Ojeda Christina L Allergies, Adverse Reactions, Alerts Substance Reaction Severity [...] pain meds Assessment and Plan Extracted from: Title:Follow Up Visit Author:COURTNEY Ojeda, Monse Robles Date:03/22/23 1.Diabetes 2.Tinea unguium -Patient unable to provide self care to toenails due to - verbal consent obtained for debridement with witness -Recommend toenail debridement -Patient had toenails ofdigits 1 through 5 right foot and digits 2 through 5 left foot debrided using nail nippers to tolerance, no bleeding noted -Patient instructed to use emery board to nails once per week -Patient had no ingrown toenails or infection noted -Patient is to follow up in3-4 months for treatment if needed in the future Immunizations Given and Recorded Vaccine Date Status [...] vaccine 06/21/98 Recorded 1Result Comment: [facility] 2Early/Late Reason: Other : busy 3Early/Late Reason: Early/Late Reason: Clinic schedule 4Result Comment: Diluent [id number] Exp11/13/16 Medications acetaminophen/butalbital/caffeine 325 mg-50 mg-40 mg oral tablet Start: 02/17/23 16:01:00 EDT, See Instructions, Disp# 30 tab, Refills: 0, TAKE 1 TABLET BY MOUTH EVERY 6 HOURS NEEDED FOR HEADACHE, Pharmacy: [facility] 1640 Start Date: 02/17/23 Status: Ordered betamethasone-clotrimazole 0.05%-1% topical cream Start: 12/10/22 16:48:00 EDT, See Instructions, Disp# 45 g, Refills: 11, APPLY TOPICALLY TO AFFECTED AREA DAILY, Pharmacy: [facility] Start Date: 12/10/22 Status: Ordered busPIRone 30 mg oral tablet Start: 11/09/22 14:06:00 EDT, See Instructions, Disp# 60 tab, Refills: 6, Take 1 tablet by mouth twice daily, Pharmacy: [facility] 1640 Start Date: 11/09/22 Status: Ordered cyclobenzaprine 10 mg oral tablet Start: 11/04/22 13:01:00 EDT, See Instructions, Disp# 270 tab, Refills: 0, TAKE 1 TABLET BY MOUTH THREE TIMES DAILY, Pharmacy: [facility] 1640 Start Date: 11/04/22 Status: Ordered escitalopram 20 mg oral tablet Start: 08/27/22 11:18:00 EDT, 1 tab, PO, Daily, Disp# 90 tab, Refills: 3, Pharmacy: [facility] 1640 Start Date: 08/27/22 Status: Ordered gabapentin 300 mg oral capsule Start: 08/27/22 11:18:00 EDT, 1 cap, PO, bid, Disp# 180 cap, Refills: 3, Pharmacy: [id number] Start Date: 08/27/22 Stop Date: 08/22/23 Status: Ordered glipiZIDE 5 mg oral tablet, extended release Start: 08/27/22 11:18:00 EDT, 2 tab, PO, Daily, Disp# 180 tab, Refills: 3, Pharmacy: [facility] 1640 Start Date: 08/27/22 Stop Date: 08/22/23 Status: Ordered hydroCHLOROthiazide 50 mg oral tablet Start: 11/16/22 17:37:00 EDT, See Instructions, Disp# 90 tab, Refills: 0, Take 1 tablet by mouth once daily, Pharmacy: [facility] 1640 Start Date: 11/16/22 Status: Ordered hydrOXYzine hydrochloride 25 mg oral tablet Start: 03/08/23 15:25:00 EDT, 2 tab, PO, qid, Disp# 100 tab, Refills: 3, PRN: as needed for itching, Pharmacy: [facility] 1640 Start Date: 03/08/23 Status: Ordered itraconazole 100 mg oral capsule Start: 11/26/22 11:55:00 EDT, See Instructions, Disp# 30, Refills: 0, 1 cap PO Daily for 7 days Q month, Pharmacy: [facility] [id number] Start Date: 11/26/22 Status: Ordered Jardiance 25 mg oral tablet Start: 11/26/22 11:50:00 EDT, 1 tab, PO, Daily, Disp# 30 tab, Refills: 3, Pharmacy: [facility] 1640 Start Date: 11/26/22 Status: Ordered ketoconazole 2% topical cream Start: 09/09/22 14:12:00 EDT, 1 appl, topical, bid, Disp# 60 g, Refills: 1, to AA Under belly, Pharmacy: [facility] 1639 Start Date: 09/09/22 Status: Ordered lancets Start: 08/13/21 14:58:00 EDT, See Instructions, Disp# 1 kit, Refills: 0, check BSG once daily, Pharmacy: [facility] 1639 Start Date: 08/13/21 Status: Ordered LORazepam 0.5 mg oral tablet Start: 08/27/22 11:18:00 EDT, 1 tab, PO, Daily, Disp# 30 tab, Refills: 1, prn, PRN: as needed for anxiety, Pharmacy: [facility] [id number] Start Date: 08/27/22 Status: Ordered Mounjaro 7.5 mg/0.5 mL subcutaneous solution Start: 02/22/23 9:39:00 EDT, 7.5 mg =, subQ, q7days, Disp# 1 kit, Refills: 0, Pharmacy: [facility] 1640 Start Date: 02/22/23 Status: Ordered omeprazole 20 mg oral delayed release capsule Start: 08/27/22 11:18:00 EDT, 1 cap, PO, bid, Disp# 180 cap, Refills: 3, Pharmacy: [facility] Start Date: 08/27/22 Stop Date: 08/22/23 Status: Ordered One Touch Verio Glucose Monitor Start: 08/14/21 9:05:00 EDT, See Instructions, Disp# 1 kit, Refills: 0, Use to test BSG once daily,Note to Pharmacy: Dx: E11.9;, Pharmacy: [facility] 1640 Start Date: 08/14/21 Status: Ordered One Touch Verio Test Strips Start: 08/12/21 16:00:00 EDT, See Instructions, Disp# 100 strip, Refills: 5, Pt to test sugars 1 time daily. E11.9, Pharmacy: [facility] 1639 Start Date: 08/12/21 Status: Ordered propranolol 40 mg oral tablet Start: 08/27/22 11:18:00 EDT, 1 tab, PO, qAM, Disp# 90 tab, Refills: 3, Pharmacy: [facility] 1639 Start Date: 08/27/22 Stop Date: 08/22/23 Status: Ordered simvastatin 20 mg oral tablet Start: 08/27/22 11:18:00 EDT, 1 tab, PO, qhs, Disp# 90 tab, Refills: 3, Pharmacy: [facility] 1639 Start Date: 08/27/22 Status: Ordered tiZANidine 4 mg oral tablet Start: 03/17/23 14:28:00 EDT, 1 tab, PO, q8h, Disp# 90 tab, Refills: 0, Pharmacy: [facility] 1639 Start Date: 03/17/23 Status: Ordered traZODone 100 mg oral tablet Start: 02/15/23 12:39:00 EDT, See Instructions, Disp# 180 tab, Refills: 0, TAKE 2 TABLETS BY MOUTH ONCE DAILY AT BEDTIME, Pharmacy: [facility] 1639 Start Date: 02/15/23 Status: Ordered Vitamin D3 50,000 intl units (1250 mcg) oral capsule Start: 08/27/22 11:18:00 EDT, 1 cap, PO, q7days, Disp# 12 cap, Refills: 6, Pharmacy: [facility] 1639 Start Date: 08/27/22 Status: Ordered Zofran ODT 4 mg oral tablet, disintegrating Start: 02/24/23 15:12:00 EDT, 1 tab, PO, tid, Disp# 10 tab, Refills: 0, PRN: as needed for nausea/vomiting, Pharmacy: [facility] 1639 Start Date: 02/24/23 Status: Ordered Mental Status 03/22/23 Barriers to Learning one year None evide nt Mandatory Health Literacy Documentation Yes Health Literacy Communication Barriers N ever Primary Language Citizen Of [place] Problem List Condition Confirmation Course Effective Dates [...] Diagnosis Diagnosis Type Effective Dates Health Status Cl inical Service Informant Diabetes Discharge Diagnosis 03/22/23 Tinea unguium Discharge Diagnosis 03/22/23 Procedures Procedure Date Related Diagnosis Body Site [...] vessel ischemia, migraines, or previous head trauma Social History Social History Type Response Smoking Status Never smoked cigaret crispin Sex Female Ortho Outpt Note * COURTNEY Ojeda Christina L: PERFORM Event Display: Ortho Outpt Note Authored Date: [id number] Chief Complaint vaishali lcare Primary Care Provider DO Hager Kristen M Subjective Patient is a very pleasant 62-year-old female presenting today for a recheck of the left great toe patient was last seen December 21, 2022. She has a history of diabetes and was having a left great toe issue at her December 21 visit. The toenail came completely off after her dog stepped on the nail. -Patient feels that the area is doing well and has no acute concerns. Review of Systems Diabetes Objective Physical Exam Problem focused bilateral feet: Dorsalis pedis pulses palpable 1 out of 4, posterior tibial pulse nonpalpable. Capillary refill time is less than 3 seconds to all digits of both feet with briskturgor pressure, pedal hair is noted bilaterally to all digits of both feet. Minimal +1 pitting edema noted to dorsal aspect of feetand legs. Gross sensation intact but patient has history of diabetic neuropathy Toenails of digits 1 through 5 of the right foot and digits2 through 5 left footwith thickeninggreater than 1 mm, dystrophy, pain recommend debridement Left hallux toenail completely detached secondary to traumaarea well-healed no further nail present in need of debridement Skin of both feet is clean dry and intact without maceration or breakdown No open wounds or lesions present on the feet. Interspaces intactthere is no maceration present. Assessment/Plan 1.Diabetes 2.Tinea unguium -Patient unable to provide self care to toenails due to - verbal consent obtained for debridement with witness -Recommend toenail debridement -Patient had toenails ofdigits 1 through 5 right foot and digits 2 through 5 left foot debrided using nail nippers to tolerance, no bleeding noted -Patient instructed to use emery board to nails once per week -Patient had no ingrown toenails or infection noted -Patient is to follow up in3-4 months for treatment if needed in the future Electronic Signature on File Electronically Reviewed/Signed by: Bhavana Ojeda DPM Author Signature Dt/Tm:03/22/2023 01:49 PM Division of Sports Medicine CLR Patient Care team information Care Team Personnel Name: CAILIN Pham Tara Position: Nurse Pract - Family Med Member Role: Lifetime Relationship Address: Address: [address] [place] [address] [place] Name: DO Palumbo Franklin J Position: Physician - Family Med Member Role: Lifetime Relationship Address: Address: [address] [place] [address] [place] Name: DO Hager Kristen M Position: Physician - Family Med Member Role: Primary Care Provider Address: Address: [address] [facility] [address] [place] [address] [place] Name: CAILIN Layton Anna L Position: Nurse Pract - Female Pelvic Med Member Role: Lifetime Relationship Address: Address: [address] [place] [address] [place] Name: MD Silveira Ann M Position: Physician - Surgery MIS Member Role: Lifetime Relationship Address: Address: [address] [facility] [place] [address] Name: COURTNEY Ojeda, Bhavana Robles Position: Physician - Podiatry Member Role: Lifetime Relationship Address: Address: [address] [facility] [address] [place] [address] Name: MD Sinclair David L Position: Physician - Derm Member Role: Lifetime Relationship Address: Address: [address] [facility] [address] [place] [address] Care Team Related Persons Name: WILLIAM HORNER Address: home [address] [place], [place] [id number] Name: YENIFER HORNER Address: [facility] [place] Address: home [address] [place], [place] [id number]
--- OUTSIDE RECORDS SUMMARY | 2023-05-07 | External Medical Summary | Continuity of Care Document ---
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 Name Role Phone Tiny Hager Primary Care Physician [phone] [id number] Date(s): 03/22/23 - 03/22/23 [facility] [address] [place] [id number] [facility] [address] [place], [place] [id number] Encounter Diagnosis Lipoma of lower leg(Discharge Diagnosis) - 03/22/23 Discharge Disposition: Home or Self Care Attending Physician: SCOTT Kelly [place] Allergies, Adverse Reactions, Alerts Substance Reaction Severity [...] pain meds Assessment and Plan Extracted from: Title:Clinical Document Author:SCOTT Kelly, Dillon son Date:03/22/23 OUTPATIENT NOTE Name: CHRISTINA HORNER Patient Number:[id number] : 1960 Date of Service: 03/22/2023 Chief complaint: MRI review right tib-fib HPI: Christina is a 62-year-old female here today with her for evaluation of her right lower leg. She says she has been having issues since July and they first thought she had a torn calf but her pain has not gotten better. She reports a lump on the back of her leg that is painful. She has issues walking. She also reports that she has issues with her back and she gets injections with Dr. Del Cid and she does occasionally get pain in her entire leg. She also has [id number] arthritis but she has never gotten any injections because she was told 18 years ago they would not help. She says her foot sometimes gets tingly. She is presenting in a wheelchair today but she says prior to this she was ambulating on her own. Patient denies any history of heart attacks, stroke or blood clots. She is diabetic. Physical exam: Patient presents in a wheelchair today. She is morbidly obese. She has open sores on the distal aspect of her leg. She has edema noted about her distal extremity. She does have pain over the mid medial aspect of her calf and a small lump is present. It is tender to touch this area. MRI: Tib-fib MRI done on 03/19/2023 shows a 4.1 x 1.1 cm benign lipoma in the medial aspect of the soleus muscle in the mid calf. There is extensive subcutaneous edema in the lateral aspect of the leg and moderate subcutaneous edema in the posterior distal and posterior medial proximal leg. There is fat atrophy of the medial and lateral heads of the gastrocnemius muscle and soleus muscle. Limited evaluation was done of the knee but revealed advanced tricompartmental osteoarthritis with possible lateral meniscus and ACL tear Assessment/plan: Left lower leg lipoma soleus muscle at mid calf Chronic severe tricompartmental osteoarthritis Findings and plan discussed with the patient. Most of her pain she is complaining about is in the calf area from the lipoma. Discussed observation/conservative treatment versus surgical excision. Patient would like to meet with a surgeon to discuss surgical excision. I did discuss with her that she has multiple issues that can be contributing to her leg pain including her back issues as well as her severe osteoarthritis in her knee. Excision of the lipoma may not resolve all of her symptoms. Discussed options of GRADY injections potentially in the future for her knee if she would like to try that. Patient understands. All of her and her 's questions and concerns were addressed. Patient will follow-up with Dr. Edmonds to further discuss her surgical options and if she is even a good surgical candidate. Immunizations Given and Recorded Vaccine Date Status [...] vaccine 06/21/98 Recorded 1Result Comment: dmitriy [facility] 2Early/Late Reason: Other : busy 3Early/Late Reason: Early/Late Reason: Clinic schedule 4Result Comment: Diluent [id number] Exp11/13/16 Medications acetaminophen/butalbital/caffeine 325 mg-50 mg-40 mg oral tablet Start: 02/17/23 16:01:00 EDT, See Instructions, Disp# 30 tab, Refills: 0, TAKE 1 TABLET BY MOUTH EVERY 6 HOURS NEEDED FOR HEADACHE, Pharmacy: [facility] Start Date: 02/17/23 Status: Ordered betamethasone-clotrimazole 0.05%-1% topical cream Start: 12/10/22 16:48:00 EDT, See Instructions, Disp# 45 g, Refills: 11, APPLY TOPICALLY TO AFFECTED AREA DAILY, Pharmacy: [facility] Start Date: 12/10/22 Status: Ordered busPIRone 30 mg oral tablet Start: 11/09/22 14:06:00 EDT, See Instructions, Disp# 60 tab, Refills: 6, Take 1 tablet by mouth twice daily, Pharmacy: [facility] Start Date: 11/09/22 Status: Ordered cyclobenzaprine 10 mg oral tablet Start: 11/04/22 13:01:00 EDT, See Instructions, Disp# 270 tab, Refills: 0, TAKE 1 TABLET BY MOUTH THREE TIMES DAILY, Pharmacy: [facility] Start Date: 11/04/22 Status: Ordered escitalopram 20 mg oral tablet Start: 08/27/22 11:18:00 EDT, 1 tab, PO, Daily, Disp# 90 tab, Refills: 3, Pharmacy: [facility] Start Date: 08/27/22 Status: Ordered gabapentin 300 mg oral capsule Start: 08/27/22 11:18:00 EDT, 1 cap, PO, bid, Disp# 180 cap, Refills: 3, Pharmacy: [facility] Start Date: 08/27/22 Stop Date: 08/22/23 Status: Ordered glipiZIDE 5 mg oral tablet, extended release Start: 08/27/22 11:18:00 EDT, 2 tab, PO, Daily, Disp# 180 tab, Refills: 3, Pharmacy: [facility] Start Date: 08/27/22 Stop Date: 08/22/23 Status: Ordered hydroCHLOROthiazide 50 mg oral tablet Start: 11/16/22 17:37:00 EDT, See Instructions, Disp# 90 tab, Refills: 0, Take 1 tablet by mouth once daily, Pharmacy: [facility] Start Date: 11/16/22 Status: Ordered hydrOXYzine hydrochloride 25 mg oral tablet Start: 03/08/23 15:25:00 EDT, 2 tab, PO, qid, Disp# 100 tab, Refills: 3, PRN: as needed for itching, Pharmacy: [facility] Start Date: 03/08/23 Status: Ordered itraconazole 100 mg oral capsule Start: 11/26/22 11:55:00 EDT, See Instructions, Disp# 30, Refills: 0, 1 cap PO Daily for 7 days Q month, Pharmacy: [facility] Start Date: 11/26/22 Status: Ordered Jardiance 25 mg oral tablet Start: 11/26/22 11:50:00 EDT, 1 tab, PO, Daily, Disp# 30 tab, Refills: 3, Pharmacy: [facility] Start Date: 11/26/22 Status: Ordered ketoconazole 2% topical cream Start: 09/09/22 14:12:00 EDT, 1 appl, topical, bid, Disp# 60 g, Refills: 1, to AA Under belly, Pharmacy: [facility] Start Date: 09/09/22 Status: Ordered lancets Start: 08/13/21 14:58:00 EDT, See Instructions, Disp# 1 kit, Refills: 0, check BSG once daily, Pharmacy: [place] [id number] Start Date: 08/13/21 Status: Ordered LORazepam 0.5 mg oral tablet Start: 08/27/22 11:18:00 EDT, 1 tab, PO, Daily, Disp# 30 tab, Refills: 1, prn, PRN: as needed for anxiety, Pharmacy: [place] [address] Start Date: 08/27/22 Status: Ordered Mounjaro 7.5 mg/0.5 mL subcutaneous solution Start: 02/22/23 9:39:00 EDT, 7.5 mg =, subQ, q7days, Disp# 1 kit, Refills: 0, Pharmacy: [place] [address] Start Date: 02/22/23 Status: Ordered omeprazole 20 mg oral delayed release capsule Start: 08/27/22 11:18:00 EDT, 1 cap, PO, bid, Disp# 180 cap, Refills: 3, Pharmacy: [facility] Start Date: 08/27/22 Stop Date: 08/22/23 Status: Ordered One Touch Verio Glucose Monitor Start: 08/14/21 9:05:00 EDT, See Instructions, Disp# 1 kit, Refills: 0, Use to test BSG once daily,Note to Pharmacy: Dx: E11.9;, Pharmacy: [place] [address] Start Date: 08/14/21 Status: Ordered One Touch Verio Test Strips Start: 08/12/21 16:00:00 EDT, See Instructions, Disp# 100 strip, Refills: 5, Pt to test sugars 1 time daily. E11.9, Pharmacy: [place] [address] Start Date: 08/12/21 Status: Ordered propranolol 40 mg oral tablet Start: 08/27/22 11:18:00 EDT, 1 tab, PO, qAM, Disp# 90 tab, Refills: 3, Pharmacy: [facility] Start Date: 08/27/22 Stop Date: 08/22/23 Status: Ordered simvastatin 20 mg oral tablet Start: 08/27/22 11:18:00 EDT, 1 tab, PO, qhs, Disp# 90 tab, Refills: 3, Pharmacy: [place] [address] Start Date: 08/27/22 Status: Ordered tiZANidine 4 mg oral tablet Start: 03/17/23 14:28:00 EDT, 1 tab, PO, q8h, Disp# 90 tab, Refills: 0, Pharmacy: [place] [address] Start Date: 03/17/23 Status: Ordered traZODone 100 mg oral tablet Start: 02/15/23 12:39:00 EDT, See Instructions, Disp# 180 tab, Refills: 0, TAKE 2 TABLETS BY MOUTH ONCE DAILY AT BEDTIME, Pharmacy: [facility] Start Date: 02/15/23 Status: Ordered Vitamin D3 50,000 intl units (1250 mcg) oral capsule Start: 08/27/22 11:18:00 EDT, 1 cap, PO, q7days, Disp# 12 cap, Refills: 6, Pharmacy: [facility] Start Date: 08/27/22 Status: Ordered Zofran ODT 4 mg oral tablet, disintegrating Start: 02/24/23 15:12:00 EDT, 1 tab, PO, tid, Disp# 10 tab, Refills: 0, PRN: as needed for nausea/vomiting, Pharmacy: [place] [address] Start Date: 02/24/23 Status: Ordered Mental Status 03/22/23 Barriers to Learning one year None evide nt Mandatory Health Literacy Documentation Yes Health Literacy Communication Barriers N ever Primary Language Ivorian Problem List Condition Confirmation Course Effective Dates [...] Dates Health Status Cl inical Service Informant Lipoma of lower leg Discharge Diagnosis 03/22/23 Procedures Procedure Date Related [...] Status Never smoked cigaret crispin Sex Female Outpatient Note * SCOTT Kelly, Janice: PERFORM Event Display: .Outpt Note Authored Date: OUTPATIENT NOTE Name: CHRISTINA HORNER Patient Number:1 [id number] : 1960 Date of Service: 03/22/2023 Chief complaint: MRI review right tib-fib HPI: Christina is a 62-year-old female here today with her for evaluation of her right lowerleg. She says she has been having issues since July and they first thought she had a torn calf buther pain has not gotten better. She reports a lump on the back of her leg that is painful. She has issues walking. She also reports that she has issues with her back and she gets injections with Dr. Del Cid and she does occasionally get pain in her entire leg. She also has [id number] arthritis but she has never gotten any injections because she was told 18 years ago they would not help. She says her foot sometimes gets tingly. She is presenting in a wheelchair today but she says prior to this she was ambulating on her own. Patient denies any history of heart attacks, stroke or blood clots. She is diabetic. Physical exam: Patient presents in a wheelchair today. She is morbidly obese. She has open sores onthe distal aspect of her leg. She has edema noted about her distal extremity. She does have pain over the mid medial aspect of her calf and a small lump is present. It is tender to touch this area. MRI: Tib-fib MRI done on 03/19/2023 shows a 4.1 x 1.1 cm benign lipoma in the medial aspect of the soleus muscle in the mid calf. There is extensive subcutaneous edema in the lateral aspect of the legand moderate subcutaneous edema in the posterior distal and posterior medial proximal leg. There isfat atrophy of the medial and lateral heads of the gastrocnemius muscle and soleus muscle. Limited evaluation was done of the knee but revealed advanced tricompartmental osteoarthritis with possible lateral meniscus and ACL tear Assessment/plan: Left lower leg lipoma soleus muscle at mid calf Chronic severe tricompartmental osteoarthritis Findings and plan discussed with the patient. Most of her pain she is complaining about is in the calf area from the lipoma. Discussed observation/conservative treatment versus surgical excision. Patient would like to meet with a surgeon to discuss surgical excision. I did discuss with her that shehas multiple issues that can be contributing to her leg pain including her back issues as well as her severe osteoarthritis in her knee. Excision of the lipoma may not resolve all of her symptoms. Discussed options of GRADY injections potentially in the future for her knee if she would like to try that. Patient understands. All of her and her 's questions and concerns were addressed. Patient will follow-up with Dr. Edmonds to further discuss her surgical options and if she is even a good surgical candidate. Electronic Signature on File Electronically Reviewed/Signed by: Janice Kelly PA-C Author Signature Dt/Tm:03/22/2023 03:25 PM Physician Felt Cutter, Dept. of Orthopaedics and Sports Medicine [facility] - [address], [address] [place] [address] Electronically Reviewed/Signed by: MD Archana Slaterigner Signature Dt/Tm: 03/22/2023 03:57 PM [facility] Attendant Department of Orthopaedics and Rehabilitation [facility] [address], [place] [address] Patient Care team information Care Team Personnel Name: CAILIN Pham Tara Position: Nurse Pract - Family Med Member Role: Lifetime Relationship Address: Address: [address] [place] [address] [place] Name: DO Palumbo Franklin J Position: Physician - Family Med Member Role: Lifetime Relationship Address: Address: [address] [facility] [address] [place] [address] [place] Name: DO Hager Kristen M Position: Physician - Family Med Member Role: Primary Care Provider Address: Address: [address] [facility] [address] [place] [address] [place] Name: CAILIN Layton Anna L Position: Nurse Pract - Female Pelvic Med Member Role: Lifetime Relationship Address: Address: [address] [facility] [address] [place] [address] [place] Name: MD Silveira Ann M Position: Physician - Surgery MIS Member Role: Lifetime Relationship Address: Address: [address] [place] [address] Name: COURTNEY Ojeda Christina L Position: Physician - Podiatry Member Role: Lifetime Relationship Address: Address: [address] [facility] [address] [place] [address] Name: MD Sinclair David L Position: Physician - Derm Member Role: Lifetime Relationship Address: Address: [address] [facility] [address] [place] [address] Care Team Related Persons Name: WILLIAM HORNER Address: home [address] [place], [place] [id number] Name: YENIFER HORNER Address: [facility] [place] Address: home [address] [place], [place] [id number]
--- OUTSIDE RECORDS SUMMARY | 2023-05-07 00:01 | External Medical Summary | Continuity of Care Document ---
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 Role Phone Tiny Hager Primary Care Physician [phone] [facility]counter [facility] [id number] Date(s): 01/28/23 - 01/28/[address] [place] [address], [facility] [address] [place] [address] [place] [phone] Encounter Diagnosis Uncontrolled diabetes mellitus with hyperglycemia(Discharge Diagnosis) - 01/28/23 B12 deficiency(Discharge Diagnosis) - 01/28/23 Lumbar radiculopathy(Discharge Diagnosis) - 01/28/23 Discharge Disposition: Home or Self Care Attending [...] Visit Note Author:DO Hager Kriste n M Date:01/28/23 1.Uncontrolled diabetes me llitus with hyperglycemia Chronic condition, stable Goal:_A1c <7.5 Data: unique tests ordered: _ Plan: _Mounjaro 5mg SQ Q 7days Pt states she needs her A1c under 7 to get the apron surgery. 2.B12 deficiency Chronic condition, stable Goal:Resolution Data:unique tests ordered: _ Plan: _cont B12 supplementation 3.Lumbar radiculopathy Chronic condition, stable Goal:Resolution Data:unique tests ordered: _ Plan: _close to shot with Dr. Knowles Immunizations Given and Recorded Vaccine Date Status Refusal Reason SARS-CoV-2 mRNA (Pfizer 12+) bivalent 1 09/24/22 G iven influenza virus vaccine, inactivated 2 01/28/22 Gi jenny influenza virus vaccine, inactivated 02/05/21 Give n influenza virus vaccine, inactivated 02/19/20 Give n influenza virus vaccine, inactivated 02/09/19 Give n influenza virus vaccine, inactivated 3 03/07/18 Gi jenny influenza virus vaccine, inactivated 01/11/17 Give n influenza virus vaccine, inactivated 02/10/16 Give n influenza virus vaccine, inactivated 01/28/15 Give n influenza virus vaccine, inactivated 01/22/14 Give n influenza virus vaccine, inactivated 02/27/13 Give n SARS-CoV-2 (COVID-19) mRNA BNT-162b2 vax 03/19/21 Given tetanus/diphtheria/pertuss, acel (Tdap) 12/09/15 G iven tetanus/diphtheria/pertuss, acel (Tdap) 09/21/05 R ecorded measles/mumps/rubella virus vaccine 4 10/24/14 Giv en pneumococcal 23-valent vaccine 06/21/98 Recorded 1Early/Late Reason: Early/Late Reason: Clinic schedule 2Result Comment: dmitriy fiore [facility] 3Early/Late Reason: Other : busy 4Result Comment: Diluent [id number] Exp11/13/16 Medications acetaminophen/butalbital/caffeine 325 mg-50 mg-40 mg oral tablet Start: 01/14/23 8:43:00 EDT, See Instructions, Disp# 30 tab, Refills: 0, TAKE 1 TABLET BY MOUTH EVERY 6 HOURS NEEDED FOR HEADACHE, Pharmacy: [facility] Start Date: 01/14/23 Status: Ordered betamethasone-clotrimazole 0.05%-1% topical cream Start: 12/10/22 16:48:00 EDT, See Instructions, Disp# 45 g, Refills: 11, APPLY TOPICALLY TO AFFECTED AREA DAILY, Pharmacy: [facility] Start Date: 12/10/22 Status: Ordered busPIRone 30 mg oral tablet Start: 11/09/22 14:06:00 EDT, See Instructions, Disp# 60 tab, Refills: 6, Take 1 tablet by mouth twice daily, Pharmacy: [facility] Start Date: 11/09/22 Status: Ordered cyclobenzaprine 10 mg oral tablet Start: 11/04/22 13:01:00 EDT, See Instructions, Disp# 270 tab, Refills: 0, TAKE 1 TABLET BY MOUTH THREE TIMES DAILY, Pharmacy: [facility] Start Date: 11/04/22 Status: Ordered escitalopram 20 mg oral tablet Start: 08/27/22 11:18:00 EDT, 1 tab, PO, Daily, Disp# 90 tab, Refills: 3, Pharmacy: [facility] [address] Start Date: 08/27/22 Status: Ordered gabapentin 300 mg oral capsule Start: 08/27/22 11:18:00 EDT, 1 cap, PO, bid, Disp# 180 cap, Refills: 3, Pharmacy: [id number] Start Date: 08/27/22 Stop Date: 08/22/23 Status: Ordered glipiZIDE 5 mg oral tablet, extended release Start: 08/27/22 11:18:00 EDT, 2 tab, PO, Daily, Disp# 180 tab, Refills: 3, Pharmacy: [facility] Start Date: 08/27/22 Stop Date: 08/22/23 Status: Ordered hydroCHLOROthiazide 50 mg oral tablet Start: 11/16/22 17:37:00 EDT, See Instructions, Disp# 90 tab, Refills: 0, Take 1 tablet by mouth once daily, Pharmacy: [facility] Start Date: 11/16/22 Status: Ordered itraconazole 100 mg oral capsule Start: 11/26/22 11:55:00 EDT, See Instructions, Disp# 30, Refills: 0, 1 cap PO Daily for 7 days Q month, Pharmacy: [id number] Start Date: 11/26/22 Status: Ordered Jardiance 25 mg oral tablet Start: 11/26/22 11:50:00 EDT, 1 tab, PO, Daily, Disp# 30 tab, Refills: 3, Pharmacy: [place] [facility] [id number] Start Date: 11/26/22 Status: Ordered ketoconazole 2% topical cream Start: 09/09/22 14:12:00 EDT, 1 appl, topical, bid, Disp# 60 g, Refills: 1, to AA Under belly, Pharmacy: [facility] [id number] Start Date: 09/09/22 Status: Ordered lancets Start: 08/13/21 14:58:00 EDT, See Instructions, Disp# 1 kit, Refills: 0, check BSG once daily, Pharmacy: [facility] [id number] Start Date: 08/13/21 Status: Ordered LORazepam 0.5 mg oral tablet Start: 08/27/22 11:18:00 EDT, 1 tab, PO, Daily, Disp# 30 tab, Refills: 1, prn, PRN: as needed for anxiety, Pharmacy: [facility] [id number] Start Date: 08/27/22 Status: Ordered Mounjaro 5 mg/0.5 mL subcutaneous solution Start: 01/28/23 14:56:00 EDT, 5 mg =, subQ, q7days, Disp# 1 kit, Refills: 1, Pharmacy: [facility] [id number] Start Date: 01/28/23 Status: Ordered omeprazole 20 mg oral delayed release capsule Start: 08/27/22 11:18:00 EDT, 1 cap, PO, bid, Disp# 180 cap, Refills: 3, Pharmacy: [facility] Start Date: 08/27/22 Stop Date: 08/22/23 Status: Ordered One Touch Verio Glucose Monitor Start: 08/14/21 9:05:00 EDT, See Instructions, Disp# 1 kit, Refills: 0, Use to test BSG once daily,Note to Pharmacy: Dx: E11.9;, Pharmacy: [facility] [id number] Start Date: 08/14/21 Status: Ordered One Touch Verio Test Strips Start: 08/12/21 16:00:00 EDT, See Instructions, Disp# 100 strip, Refills: 5, Pt to test sugars 1 time daily. E11.9, Pharmacy: [place] [facility] [id number] Start Date: 08/12/21 Status: Ordered propranolol 40 mg oral tablet Start: 08/27/22 11:18:00 EDT, 1 tab, PO, qAM, Disp# 90 tab, Refills: 3, Pharmacy: [facility] Start Date: 08/27/22 Stop Date: 08/22/23 Status: Ordered simvastatin 20 mg oral tablet Start: 08/27/22 11:18:00 EDT, 1 tab, PO, qhs, Disp# 90 tab, Refills: 3, Pharmacy: [facility] [address] Start Date: 08/27/22 Status: Ordered tiZANidine 4 mg oral tablet Start: 11/16/22 17:40:00 EDT, See Instructions, Disp# 90 tab, Refills: 0, TAKE 1 TABLET BY MOUTH EVERY 8 HOURS, Pharmacy: [facility] [address] Start Date: 11/16/22 Status: Ordered traZODone 100 mg oral tablet Start: 11/16/22 17:37:00 EDT, See Instructions, Disp# 180 tab, Refills: 0, TAKE 2 TABLETS BY MOUTH ONCE DAILY AT BEDTIME, Pharmacy: [facility] [address] Start Date: 11/16/22 Status: Ordered Vistaril 25 mg oral capsule Start: 09/24/22 11:28:00 EDT, See Instructions, Disp# 100 tab, Refills: 11, 1-2 caps po QID prn itch, PRN: as needed for itching, Pharmacy: [facility] [address] Start Date: 09/24/22 Status: Ordered Vitamin D3 50,000 intl units (1250 mcg) oral capsule Start: 08/27/22 11:18:00 EDT, 1 cap, PO, q7days, Disp# 12 cap, Refills: 6, Pharmacy: [facility] Start Date: 08/27/22 Status: Ordered Problem List Condition Confirmation Course [...] Hyperlipidemia Confirmed Active Intertrigo Confirmed Active Itch of skin Confirmed Active Low back pain Confirmed Active Lumbar radiculopathy Confirmed Active MIGRAINE Confirmed Active Migraine variant [...] Effective Dates Health Status Clinical Service Informant Uncontrolled diabetes mellitus with hyperglycemia Discharge Diagnosis 01/28/23 B12 deficiency Discharge Diagnosis 01/28/23 Lumbar radiculopathy Discharge Diagnosis 01/28/23 Procedures Procedure Date Related Diagnosis Body Site [...] Event Display: FCM Outpt Note Authored Date: [id number] TELEVISIT I have confirmed the patients name and date of . The patient has consented to this service,and I have advised the patient that this is a billable visit for which they may be subject to a copay. [ x_ ] The patient has initiated this visit after he/she was informed of the availability of telehealth for this medically necessary visit. [ _ ] The provider initiated this visit after explaining the need for this visit to the patient, who has consented to this virtual visit. I am located at my: [ x_ ] Office [ _ ] Home [ _ ] Other: _ The patient is located at: [x ] Home [ _ ] Other: _ This visit was conducted via live audio/video technology: [ x_ ] [facility] [ _ ] Zoom This visit was conducted via [ _ ] Telephone, and was not related to a visit or procedure that occurred within the past 7 days. Chief Complaint discuss ongoing medical issues History of Present Illness Pt presents for her one month follow up. We started mounjaro last month. Pt states she is not feeling well today. She has some back discomfort. Pt has been pleased with mounjaro and would like togo up a dose. Pt states she is very upset with her apron issues. Physical Exam G: AAAOx3, NAD P: normal affect and insight, Assessment/Plan 1.Uncontrolled diabetes mellitus with hyperglycemia Chronic condition, stable Goal:_A1c <7.5 Data:unique tests ordered: _ Plan: _Mounjaro 5mg SQ Q 7days Pt states she needs her A1c under 7 to get the apron surgery. 2.B12 deficiency Chronic condition, stable Goal:Resolution Data:unique tests ordered: _ Plan: _cont B12 supplementation 3.Lumbar radiculopathy Chronic condition, stable Goal:Resolution Data:unique tests ordered: _ Plan: _close to shot with Dr. Eleni Butler I spent4 mintime in previsit planning including prepping note and chart review . I spent12 time in face to face interaction with patient concerning the issues that brought them in today. I spent4 min time in post visit planning including finishing note and depart process Total time spent today on patient visit20 min Problem List/Past Medical History Ongoing Abnormal [...] Sjogren's disease Sleep disorder Tinea unguium Uncontrolled type 2 diabetes mellitus with hypoglycemia, [...] 50,000 intl units (1250 mcg) oral capsule), [address]5416 Int_Unit= 1 cap, PO, q7days, 6 refills [...] mg= 1 cap, PO, bid, 3 refills propranolol(propranolol 40 mg oral tablet), 40 mg= 1 tab, PO, qAM, 3 refills simvastatin(simvastatin 20 mg oral tablet), 20 mg= 1 tab, PO, qhs, 3 refills tirzepatide(Mounjaro 2.5 mg/0.5 mL subcutaneous solution), 2.5 mg, subQ, q7days, 1 refills tiZANidine(tiZANidine 4 mg oral tablet), See Instructions [...] negative Immunizations Vaccine Date Status SARS-CoV-2 mRNA (Pfizer 12+) bivalent 09/24/2022 Given Comments : Early/Late Reason: Clinic schedule influenza virus vaccine, inactivated 01/28/2022 Given Comments : 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 SARS-CoV-2 (COVID-19) mRNA BNT-162b2 vax 03/19/2021 Given [...] virus vaccine 10/24/2014 Given Comments : Diluent [id number] Exp11/13/16 influenza virus vaccine, inactivated 01/22/2014 Given influenza virus vaccine, inactivated 02/27/2013 Given tetanus/diphtheria/pertuss, acel (Tdap) 09/21/2005 Recorded pneumococcal 23-valent vaccine 06/21/1998 Recorded Recommendations Health Maintenance Pending(in the next year) OverDue Diabetic Eye Exam due03/26/22and every 2year Adult Influenza Vaccine due11/14/22and every 1year Due Adult COVID-19 Vaccination due01/28/23Unknown Frequency Hepatitis C Screening due01/28/23One-time only Pneumococcal Vaccine Adults and Adolescents with Chronic Illness due01/28/23One-time only Shingles Vaccine due01/28/23One-time only Due In Future Body Mass Index not due until06/19/23and every 1year Diabetes Management A1c not due until08/20/23and every 1year Satisfied(in the past 1 year) Satisfied Adult COVID-19 Vaccination on09/24/22.Satisfied by SHAZIA Alegria Jenna Adult Influenza Vaccine on01/28/22.Satisfied by MAYA Mcfarlane Angela Body Mass Index on06/19/22.Satisfied by MAYA Mcfarlane Angela Breast Cancer Screening on11/30/22.Satisfied by MAYA Selby Angela Cervical Cancer Screening on05/27/22. Diabetes Management A1c on08/20/22.Satisfied by Contributor_system, [email or web address] Diabetes Nephropathy Management on09/08/22.Satisfied by Contributor_system, [email or web address] Lipid Screening on08/20/22.Satisfied by Contributor_system, [email or web address] Electronic Signature on File Electronically Reviewed/Signed by: Tiny Hager DO Author Signature Dt/Tm:01/28/2023 03:04 PM Department of Family Medicine [facility] Patient Care team information Care Team Personnel Name: CAILIN Pham Tara Position: Nurse Pract - Family Med Member Role: Lifetime Relationship Address: Address: [address] [place] [address] [place] Name: DO Palumbo Franklin J Position: Physician - Family Med Member Role: Lifetime Relationship Address: Address: [address] [facility] [address] [place] [address] [place] Name: DO Hager Kristen M Position: Physician - Family Med Member Role: Primary Care Provider Address: Address: [address] [facility] [address] [place] [address] [place] Name: CAILIN Layton Anna L Position: Nurse Pract - Female Pelvic Med Member Role: Lifetime Relationship Address: Address: [address] [place] [address] [address] [place] [address] [place] Name: MD Silveira Ann M Position: Physician - Surgery MIS Member Role: Lifetime Relationship Address: Address: [address] [place] [address] [place] Name: COURTNEY Ojeda Christina L Position: Physician - Podiatry Member Role: Lifetime Relationship Address: Address: [address] [facility] [address] [place] [address] [place] Name: MD Sinclair David L Position: Physician - Derm Member Role: Lifetime Relationship Address: Address: [address] [facility] [address] [place] [address] Care Team Related Persons Name: YVES HORNER Address: home [address] [place], [place] [phone] Name: YENIFER HORNER Address: [facility] Address: home [address] [place], [place] [phone]
[2023-05-07] MEDS: tiZANidine HCL 4 MG TABLET PO PRN ×2 (01:02→19:52)
[2023-05-07 08:53] LABS: Basophils # (auto) 0.07 K/uL (0.00-0.20); Basophils % (auto) 0.6 %; Eosinophils % (auto) 3.5 %; Hematocrit (blood only) 42.3 % (37.0-47.0); Hemoglobin 13.8 g/dl (12.0-16.0); Immature Granulocytes # (auto) 0.08 K/uL (0.01-0.20); Immature Granulocytes % (auto) 0.7 %; Lymphocytes # (auto) 3.01 K/uL (1.20-3.40); Lymphocytes % (auto) 26.2 %; Mean Corpuscular Hemoglobin 28.9 pg (25.0-34.0); Mean Corpuscular Hgb Conc 32.6 g/dL (32.0-36.0); Mean Corpuscular Volume 88.5 fL (80.0-100.0); Mean Platelet Volume 9.3 fL (9.4-12.4); Monocytes # (auto) 1.02 K/uL (0.11-0.59); Monocytes % (auto) 8.9 %; Neutrophils # (auto) 6.92 K/uL (1.40-6.50); Neutrophils % (auto) 60.1 %; Platelet Count 300 K/uL (130-400); RDW Coefficient of Variation 13.7 % (11.5-14.5); RDW Standard Deviation 44.3 fL (36.4-46.3); Red Blood Count 4.78 M/uL (4.20-5.40)
[2023-05-07] MEDS ORDERED: PNEUMOCOCCAL VACCINE (PCV20) 20-VAL CONJ-DIP CRM/PF 0.5 ML SYR IM ONE (09:00)
[2023-05-07] MEDS ORDERED: ERGOCALCIFEROL 50,000 UNITS 1250 MCG CAP PO SCH (09:00)
[2023-05-07] MEDS: INSULIN ASPART PER UNIT CHARGE SC SCH ×4 (09:01→21:14)
[2023-05-07] MEDS: LANTUS PER UNIT CHARGE SQ SCH ×2 (09:01→21:14)
[2023-05-07] MEDS: busPIRone 15 MG TAB PO SCH ×2 (09:02→19:52)
[2023-05-07] MEDS: CYCLOBENZAPRINE HCL 10 MG TAB PO SCH ×2 (09:03→19:52)
[2023-05-07] MEDS: PANTOprazole 40 MG TAB PO SCH ×2 (09:03→19:53)
[2023-05-07] MEDS: PROPRANOLOL HCL 20 MG TAB PO SCH (09:03)
[2023-05-07] MEDS: POTASSIUM CHLORIDE CRTAB 20 MEQ TABCR PO SCH ×2 (09:03→19:54)
[2023-05-07] MEDS: ENOXAPARIN INJ 40 MG/0.4 ML SYR SQ SCH ×2 (09:04→21:14)
[2023-05-07] MEDS: hydroCHLOROthiazide 25 MG TAB PO SCH (09:04)
[2023-05-07 09:15] LABS: BUN Creatinine Ratio 15.9 (10-20); C Reactive Protein 7.75 mg/dl (0-0.5); Calcium 8.7 mg/dl (8.6-10.3); Creatinine Clr Calc Pharmacy 183.9 ml/min; Est GFR (African American) 126.3 ml/min; Est GFR (Non-African American) 108.9 ml/min; Potassium 3.2 mmol/L (3.5-5.1)
[2023-05-07] MEDS: hydrOXYzine HCl 25 MG TAB PO PRN ×2 (10:30→16:04)
--- NOTE | 2023-05-07 12:11 | Hospitalist Progress Note ---
Date of Service May 07, 2023 Assessment & Plan (1) Cellulitis: Plan: Patient has diffuse cellulitis with additional intertrigo underlying the pannus and extending down to the proximal thighs bilaterally, has clearing of the distal thigh and proximal lower leg and then bilateral venous stasis with some asymmetric right greater than left erythema of the lower extremity No fluctuance appreciated, no crepitus of the abdomen, thigh, or peritonum. She is nontoxic appearing on admission Patient has a surface culture positive for group B strep, in addition to a lower surface culture positive for CONS Clinically appears consistent with streptococcal cellulitis; unfortunately patient reports anaphylactic reaction to antibiotics and has had diffuse reaction to both penicillin and cephalexin. She was pending allergy testing next week Will admit on daptomycin, this will cover both strep/coag negative staph. Patient does not appear septic on admission although does have a leukocytosis. CBC and CRP trended. Pro-Sterling is normal Cellulitic borders marked with surgical pen, photos attached to H&P. Rapidly receding/improving after 24 hours Lactate is normal on admission Statin held while on daptomycin - Leukocytosis beginning to downtrend (2) Candidiasis, intertrigo: Plan: Continue miconazole (3) Poorly controlled type 2 diabetes mellitus: Plan: Converted to basal bolus while inpatient, Jardiance/glipizide/metformin held Goal BSG [id number] BSG 149 on admit (4) Obesity, morbid, BMI 50 or higher: (5) Anxiety: Plan: Continue BuSpar (6) GERD (gastroesophageal reflux disease): Plan: Omeprazole converted to protonix (7) Asthma: Plan: No acute exacerbation. Albuterol as needed (8) Hypertension: Plan: Mildly hypertensive, asymptomatic on admission Continue home antihypertensives including propranolol/hydrochlorothiazide Plan DVT prophylaxis: Lovenox CODE STATUS: DNR/DNI. Patient would want intubation for respiratory protection in the event of an allergic reaction/airway compromise, would not want resuscitation/revival and a complete cardiac or pulmonary arrest Diet: Type II DM Disposition: Medical/surgical. If any signs of allergic reaction, transfer to [facility]. Admission and Anticipated Discharge Date Admission Date: May 06, 2023 Subjective Seen at bedside. She feels that she is improving, did have itching overnight as her hydroxyzine was held and she normally uses this for itching but has had no new rash or welts and does not feel she has had new or increased itching compared to what is normal for her. She denies fever, chills, sweats. No chest pain or chest pressure. Remains tender in the abdomen at her cellulitis site, this is improved from yesterday. No other questions or concerns. Seen wound care at bedside at time of assessment, dressings replaced with Aquacel Physical Exam Physical Exam: General: A&Ox3. NAD. Cooperative. HEENT: Atraumatic, normocephalic. Vision/hearing and Pulm: CTAB A&P. -wheezes, -rales, -rhonchi. Symmetrical chest rise. No increased work of breathing. No respiratory distress. Cardiac: RRR, -mrg. Radial pulses intact and symmetrical. Abdomen: Obese, diffuse demarcated erythema with skin erosions underlying the pannus and extended down to the proximal thigh bilaterally. This is improved and is rapidly receding from marked cellulitic borders. Warmth and erythema remained but greatly improved from prior. bilat Lower extremity extension of cellulitis is with similar improvement and no worsening Results & Data Results & Data Vital Signs (Past 12 Hours) Vital Signs Temp Pulse Resp BP Pulse Ox O2 Del Method 05/07/23 07:34 36.7 C 92 H 16 149/83 H 95 Room Air PG Care Time/CCT Total # of Minutes Spent Total Time Spent with Patient: Total time spent is greater than 50% in coordination of care (as documented) at patient's floor/unit and/or counseling patient: Coding Level of Care Code 64316 SUB INP/OBS CARE 3/50MIN Diagnoses Cellulitis L03.90 Candidiasis, intertrigo B37.2 Poorly controlled type 2 diabetes mellitus E11.65 Obesity, morbid, BMI 50 or higher E66.01 Anxiety F41.9 GERD (gastroesophageal reflux disease) K21.9 Asthma J45.909 Hypertension I10
[2023-05-07] MEDS: BUTALBITAL/ACETAMIN/CAFFEINE TAB PO PRN (14:31)
[2023-05-07] MEDS: DAPTOmycin 350 MG in SYRINGE 0 ML IV SCH (17:44)
[2023-05-07] MEDS: ESCITALOPRAM OXALATE 20 MG TAB PO SCH (19:53)
[2023-05-07] MEDS: GABAPENTIN 300 MG CAP PO SCH (21:15)
[2023-05-07] MEDS: traZODone HCL 100 MG TAB PO PRN (21:16)
[2023-05-08] MEDS: hydrOXYzine HCl 25 MG TAB PO PRN (00:19)
--- NOTE | 2023-05-08 06:45 | Electrocardiogram Report ---
Test Reason : Blood Pressure : / mmHG Vent. Rate : 079 BPM Atrial Rate : 079 BPM P-R Int : 140 ms QRS Dur : 088 ms QT Int : 428 ms P-R-T Axes : 013 009 062 degrees QTc Int : 490 ms Normal sinus rhythm Prolonged QT Abnormal ECG When compared with ECG of 22-MAY-2019 21:48, No significant change was found Confirmed by Danny Hare ([id number]) on 05/08/2023 6:45:01 AM Referred By: REFERRED SELF Confirmed By:Danny Hare
[2023-05-08 07:56] LABS: Basophils # (auto) 0.12 K/uL (0.00-0.20); Basophils % (auto) 0.9 %; Eosinophils # (auto) 0.51 K/uL (0.00-0.50); Eosinophils % (auto) 3.9 %; Hematocrit (blood only) 45.5 % (37.0-47.0); Hemoglobin 14.7 g/dl (12.0-16.0); Immature Granulocytes # (auto) 0.13 K/uL (0.01-0.20); Lymphocytes # (auto) 3.57 K/uL (1.20-3.40); Mean Corpuscular Hemoglobin 28.9 pg (25.0-34.0); Mean Corpuscular Hgb Conc 32.3 g/dL (32.0-36.0); Mean Corpuscular Volume 89.4 fL (80.0-100.0); Mean Platelet Volume 8.9 fL (9.4-12.4); Monocytes # (auto) 1.11 K/uL (0.11-0.59); Monocytes % (auto) 8.4 %; Neutrophils % (auto) 58.8 %; Platelet Count 379 K/uL (130-400); RDW Coefficient of Variation 13.8 % (11.5-14.5); RDW Standard Deviation 44.6 fL (36.4-46.3); Red Blood Count 5.09 M/uL (4.20-5.40); White Blood Count 13.24 K/ul (4.8-10.8)
[2023-05-08] MEDS: ACETAMINOPHEN 325 MG TAB PO PRN (07:57)
[2023-05-08] MEDS: hydroCHLOROthiazide 25 MG TAB PO SCH (08:01)
[2023-05-08] MEDS: POTASSIUM CHLORIDE CRTAB 20 MEQ TABCR PO SCH ×2 (08:01→20:20)
[2023-05-08] MEDS: busPIRone 15 MG TAB PO SCH ×2 (08:01→20:18)
[2023-05-08] MEDS: PROPRANOLOL HCL 20 MG TAB PO SCH (08:01)
[2023-05-08] MEDS: ENOXAPARIN INJ 40 MG/0.4 ML SYR SQ SCH ×2 (08:02→21:11)
[2023-05-08] MEDS: CYCLOBENZAPRINE HCL 10 MG TAB PO SCH ×2 (08:02→20:18)
[2023-05-08] MEDS: GABAPENTIN 300 MG CAP PO SCH ×2 (08:02→20:19)
[2023-05-08] MEDS: PANTOprazole 40 MG TAB PO SCH ×2 (08:02→20:19)
[2023-05-08 08:30] LABS: Blood Urea Nitrogen 9 mg/dl (6-23); C Reactive Protein 4.15 mg/dl (0-0.5); Calcium 9.1 mg/dl (8.6-10.3); Carbon Dioxide 26 mmol/L (21-32); Chloride 99 mmol/L (98-107); Creatinine Clr Calc Pharmacy 134.9 ml/min; Est GFR (Non-African American) 98.4 ml/min; Glucose 131 mg/dl (70-99(Fasting))
[2023-05-08] MEDS: LANTUS PER UNIT CHARGE SQ SCH ×2 (08:42→21:10)
[2023-05-08] MEDS: INSULIN ASPART PER UNIT CHARGE SC SCH ×4 (08:43→21:11)
--- NOTE | 2023-05-08 09:43 | Hospitalist Progress Note ---
Date of Service May 08, 2023 Assessment & Plan (1) Cellulitis: Plan: Attending: Dr. Jurado 62-year-old female admitted 05/06/2023 with cellulitis of the abdomen, pannus, bilateral thighs. Multiple allergies to antibiotics. Started daptomycin for coverage. Blood cultures are negative x 2. Wound care has been consulted. We appreciate their input. Images are in the system. This time patient has no leukocytosis. She does have an elevated C-reactive protein but negative procalcitonin. Patient was started on daptomycin due to multiple oral allergies. She is scheduled with allergy for desensitization but this has not occurred at this time Will plan on de-escalating antibiotics to oral antibiotics and see how she tolerates them over the next day or 2. Once we have an adequate regimen, consider discharge home. Will continue with miconazole for candidiasis and intertrigo Santyl will be applied every 12 hours to open areas under the pannus. Will also request you for our wound care to try and keep area as dry and control as possible (2) Poorly controlled type 2 diabetes mellitus: Plan: Jardiance, glipizide, metformin held while inpatient Continue with Lantus Close follow-up with Dr. Hager on discharge (3) Candidiasis, intertrigo: Plan: Continue miconazole [place] importance of hygiene at home. Patient does state that her daughter who is 20 years old and her live with her and assist with bathing (4) Hypokalemia: Plan: Check labs today as patient had hemolysis - labs being redrawn Magnesium is 2.0 (5) Weakness: Plan: PT/OT (6) Hypertension: Plan: Continue propranolol/hydrochlorothiazide Moderately controlled this morning with a BP of 150/89 No chest pain or tightness (7) GERD (gastroesophageal reflux disease): Plan: No acute complaints. 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 Wound care treatment has been augmented today. Patient requires inpatient management of her infection at this time Admission and Anticipated Discharge Date Admission Date: May 06, 2023 Subjective Attending: Dr. Jurado Is a 62-year-old female that was admitted on 05/06/2023 with diffuse cellulitis and intertrigo underlying the pannus and extending down to the proximal thighs bilaterally. Patient has a number of allergies and does not tolerate oral antibiotics well. Patient was placed on daptomycin. Over the last 2 days, patient has had significant improvement in her symptoms but still has irritation under her pannus and down her legs. Were obtained and are negative x 2. Patient does have recent history of group B beta strep and coag negative staph of her lower extremities. Patient is currently afebrile continues to have chills. She has no leukocytosis. Procalcitonin is negative. Patient does have an elevated C-reactive protein of 4.15 mg/Kathy. Review of Systems Review of Systems: A total of 10 systems was reviewed and is negative other than as listed in the HPI Physical Exam Physical Exam: GENERAL : No acute distress. Morbidly obese. Sitting comfortably in chair. No conversational dyspnea EYES: No icterus, gaze conjugate NOSE: No evidence of epistaxis MOUTH: No lesions or candidiasis NECK: Supple LUNGS: CTA B/L, no wheezes, rales or rhonchi. Effort is appropriate and does not induce cough HEART: Regular, rate controlled ABDOMEN: Soft, NT, ND, BS Present. Erythema seems improved compared to line of demarcation but patient still has considerable infection under pannus. There is a concerning lesion under the far left pannus that should be watched closely. EXTREMITIES: Bilateral LE edema, pedal pulses intact NEURO: A&OX3 Results & Data Results & Data Vital Signs (Past 12 Hours) Vital Signs Temp Pulse Resp BP Pulse Ox O2 Del Method 05/08/23 07:19 36.6 C 97 H 18 150/89 H 95 Room Air 05/07/23 23:28 36.4 C L 83 18 132/77 92 Room Air Laboratory Results Abnormal lab results 05/07/23 05/07/23 05/07/23 Range/Units 11:36 16:46 20:37 WBC (4.8-10.8) K/ul MPV (9.4-12.4) fL Neut # (Auto) (1.40-6.50) K/uL Lymph # (Auto) (1.20-3.40) K/uL Ripley # (Auto) (0.11-0.59) K/uL Eos # (Auto) (0.00-0.50) K/uL Glucose (70-99(Fasting)) mg/dl POC Glucose 139 H 126 H 144 H (70-99) mg/dl C-Reactive Protein (0-0.5) mg/dl 05/08/23 05/08/23 Range/Units 07:33 07:54 WBC 13.24 H (4.8-10.8) K/ul MPV 8.9 L (9.4-12.4) fL Neut # (Auto) 7.80 H (1.40-6.50) K/uL Lymph # (Auto) 3.57 H (1.20-3.40) K/uL Ripley # (Auto) 1.11 H (0.11-0.59) K/uL Eos # (Auto) 0.51 H (0.00-0.50) K/uL Glucose 131 H (70-99(Fasting)) mg/dl POC Glucose 140 H (70-99) mg/dl C-Reactive Protein 4.15 H (0-0.5) mg/dl PG Care Time/CCT Total # of Minutes Spent Total Time Spent with Patient: Total time spent is greater than 50% in coordination of care (as documented) at patient's floor/unit and/or counseling patient:45 minutes over two visits face to face with patient plus chart review and discussion with attending Coding Level of Care Code 88885 SUB INP/OBS CARE 3/50MIN Diagnoses Cellulitis L03.90 Site of cellulitis: unspecified site Poorly controlled type 2 diabetes mellitus E11.65 Candidiasis, intertrigo B37.2 Hypokalemia E87.6 Weakness R53.1 Hypertension I10 GERD (gastroesophageal reflux disease) K21.9 Ming's disease E06.3 Time Spent (min) 55 (1) Cellulitis Site of cellulitis: unspecified site Qualified Code(s): L03.90 - Cellulitis, unspecified
[2023-05-08 10:16] LABS: Potassium 3.6 mmol/L (3.5-5.1)
[2023-05-08 10:32] LABS: Thyroid Stimulating Hormone 0.978 uIu/ml (0.300-4.500)
[2023-05-08] MEDS: DAPTOmycin 350 MG in SYRINGE 0 ML IV SCH (16:34)
[2023-05-08] MEDS ORDERED: COLLAGENASE OINT 30 GM TUBE EXT PRN (20:17)
[2023-05-08] MEDS: ESCITALOPRAM OXALATE 20 MG TAB PO SCH (20:19)
[2023-05-08] MEDS: tiZANidine HCL 4 MG TABLET PO PRN (20:20)
[2023-05-08] MEDS: traZODone HCL 100 MG TAB PO PRN (20:21)
[2023-05-09] MEDS: BUTALBITAL/ACETAMIN/CAFFEINE TAB PO PRN ×3 (05:51→18:19)
[2023-05-09 06:42] LABS: Basophils # (auto) 0.12 K/uL (0.00-0.20); Basophils % (auto) 1.2 %; Eosinophils # (auto) 0.47 K/uL (0.00-0.50); Eosinophils % (auto) 4.6 %; Hematocrit (blood only) 43.5 % (37.0-47.0); Hemoglobin 13.8 g/dl (12.0-16.0); Immature Granulocytes # (auto) 0.09 K/uL (0.01-0.20); Immature Granulocytes % (auto) 0.9 %; Lymphocytes # (auto) 3.11 K/uL (1.20-3.40); Lymphocytes % (auto) 30.1 %; Mean Corpuscular Hemoglobin 28.6 pg (25.0-34.0); Mean Corpuscular Hgb Conc 31.7 g/dL (32.0-36.0); Mean Corpuscular Volume 90.2 fL (80.0-100.0); Mean Platelet Volume 9.2 fL (9.4-12.4); Monocytes # (auto) 0.92 K/uL (0.11-0.59); Monocytes % (auto) 8.9 %; Neutrophils # (auto) 5.61 K/uL (1.40-6.50); Neutrophils % (auto) 54.3 %; Platelet Count 323 K/uL (130-400); RDW Coefficient of Variation 13.7 % (11.5-14.5); RDW Standard Deviation 45.4 fL (36.4-46.3); Red Blood Count 4.82 M/uL (4.20-5.40); White Blood Count 10.32 K/ul (4.8-10.8)
[2023-05-09 07:01] LABS: BUN Creatinine Ratio 16.4 (10-20); C Reactive Protein 3.15 mg/dl (0-0.5); Calcium 9.1 mg/dl (8.6-10.3); Creatinine Clr Calc Pharmacy 147.2 ml/min; Est GFR (African American) 117.3 ml/min; Est GFR (Non-African American) 101.2 ml/min; Potassium 3.7 mmol/L (3.5-5.1)
[2023-05-09] MEDS ORDERED: SUMAtriptan succinate 25 MG TAB PO STA (08:38)
[2023-05-09] MEDS: GABAPENTIN 300 MG CAP PO SCH ×2 (09:29→20:53)
[2023-05-09] MEDS: PANTOprazole 40 MG TAB PO SCH ×2 (09:29→20:54)
[2023-05-09] MEDS: CYCLOBENZAPRINE HCL 10 MG TAB PO SCH ×2 (09:29→20:53)
[2023-05-09] MEDS: POTASSIUM CHLORIDE CRTAB 20 MEQ TABCR PO SCH ×2 (09:29→20:54)
[2023-05-09] MEDS: hydroCHLOROthiazide 25 MG TAB PO SCH (09:30)
[2023-05-09] MEDS: ENOXAPARIN INJ 40 MG/0.4 ML SYR SQ SCH ×2 (09:30→20:55)
[2023-05-09] MEDS: busPIRone 15 MG TAB PO SCH ×2 (09:30→20:52)
[2023-05-09] MEDS: PROPRANOLOL HCL 20 MG TAB PO SCH (09:30)
[2023-05-09] MEDS: INSULIN ASPART PER UNIT CHARGE SC SCH ×4 (09:43→20:53)
[2023-05-09] MEDS: LANTUS PER UNIT CHARGE SQ SCH ×2 (09:43→20:54)
[2023-05-09] MEDS: hydrOXYzine HCl 25 MG TAB PO PRN ×2 (14:57→23:40)
[2023-05-09] MEDS: DAPTOmycin 350 MG in SYRINGE 0 ML IV SCH (16:54)
--- NOTE | 2023-05-09 19:15 | Hospitalist Progress Note ---
Date of Service May 09, 2023 Assessment & Plan (1) Cellulitis: Plan: Attending: Dr. Jurado 62-year-old female admitted 05/06/2023 with cellulitis of the abdomen, pannus, bilateral thighs. Multiple allergies to antibiotics. Started daptomycin for coverage. Blood cultures are negative x 2. Wound care has been consulted. We appreciate their input. Images are in the system. This time patient has no leukocytosis. She does have an elevated C-reactive protein which is improving but negative procalcitonin. Patient was started on daptomycin due to multiple oral allergies. She is scheduled with allergy for desensitization but this has not occurred at this time Will plan on de-escalating antibiotics to oral antibiotics and see how she tolerates them over the next day or 2. Once we have an adequate regimen, consider discharge home. Will continue with miconazole for candidiasis and intertrigo Santyl will be applied every 12 hours to open areas under the pannus. Will also request you for our wound care to try and keep area as dry and control as possible Patient states that orders for wound care every 4 hours were not initiated last evening. Will discuss with nursing for management today to maintain dry area as much as possible (2) Poorly controlled type 2 diabetes mellitus: Plan: Jardiance, glipizide, metformin held while inpatient Continue with Lantus Close follow-up with Dr. Hager on discharge (3) Candidiasis, intertrigo: Plan: Continue miconazole Discussed importance of hygiene at home. Patient does state that her daughter who is 20 years old and her live with her and assist with bathing (4) Hypokalemia: Plan: Potassium 3.7 Magnesium is 2.0 (5) Weakness: Plan: PT/OT as tolerated (6) Hypertension: Plan: Continue propranolol/hydrochlorothiazide Moderately controlled this morning with a BP of 150/89 No chest pain or tightness (7) GERD (gastroesophageal reflux disease): Plan: No acute complaints. 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 Wound care treatment has been augmented. Patient requires inpatient management of her infection at this time Admission and Anticipated Discharge Date Admission Date: May 06, 2023 Subjective Attending: Dr. Jurado Patient seen and examined at bedside today. She seems to be doing better as far as her pannicular infection. No fever. She still has a considerable amount of breakdown of the pannus. Patient also complains of migraine headache this morning. She took Fioricet for send this morning he continues to have difficulty. Positive for nausea but no vomiting. Positive for light sensitivity. No other acute complaints at this time. Review of Systems 2 Review of Systems: A total of 10 systems was reviewed and is negative other than as listed in the HPI Physical Exam 2 Physical Exam: GENERAL : Patient is in moderate distress secondary to migraine headache EYES: No icterus, gaze conjugate NOSE: No evidence of epistaxis MOUTH: No lesions or candidiasis NECK: Supple LUNGS: CTA B/L, no wheezes, rales or rhonchi HEART: Regular, rate controlled ABDOMEN: Soft, NT, ND, BS Present. Patient continues to have significant evidence of infection in the intertriginous folds of the pannus. Erythema does seem to be improved. Area continues to be macerated. Santyl is noted to be appropriately placed at the open sore on the left far side of the pannus EXTREMITIES: Bilateral LE edema, pedal pulses intact NEURO: A&OX3. Pupils equal and round. Patient responds appropriately during interview. Results & Data Results & Data Vital Signs (Past 12 Hours) Vital Signs Temp Pulse Resp BP Pulse Ox O2 Del Method 05/09/23 13:53 36.4 C L 77 18 136/70 95 Room Air 05/09/23 07:30 Room Air 05/09/23 07:16 36.4 C L 90 16 105/66 96 Room Air Laboratory Results 05/09/23 05:31 05/09/23 05:31 PG Care Time/CCT Total # of Minutes Spent Total Time Spent with Patient: Total time spent is greater than 50% in coordination of care (as documented) at patient's floor/unit and/or counseling patient:30 minutes Coding Level of Care Code 30080 SUB INP/OBS CARE 1/25MIN Diagnoses Cellulitis L03.90 Site of cellulitis: unspecified site Poorly controlled type 2 diabetes mellitus E11.65 Candidiasis, intertrigo B37.2 Hypokalemia E87.6 Weakness R53.1 Hypertension I10 GERD (gastroesophageal reflux disease) K21.9 Ming's disease E06.3 Migraine headache with aura G43.109 Time Spent (min) 30 (1) Cellulitis Site of cellulitis: unspecified site Qualified Code(s): L03.90 - Cellulitis, unspecified
[2023-05-09] MEDS: ESCITALOPRAM OXALATE 20 MG TAB PO SCH (20:53)
[2023-05-09] MEDS: traZODone HCL 100 MG TAB PO PRN (20:56)
[2023-05-09] MEDS: tiZANidine HCL 4 MG TABLET PO PRN (21:38)
[2023-05-10 06:50] LABS: Hemoglobin 13.3 g/dl (12.0-16.0); Mean Corpuscular Hemoglobin 28.8 pg (25.0-34.0); Mean Corpuscular Hgb Conc 32.4 g/dL (32.0-36.0); Mean Corpuscular Volume 88.7 fL (80.0-100.0); Platelet Count 305 K/uL (130-400); RDW Coefficient of Variation 13.5 % (11.5-14.5); RDW Standard Deviation 43.5 fL (36.4-46.3); Red Blood Count 4.62 M/uL (4.20-5.40); White Blood Count 10.22 K/ul (4.8-10.8)
[2023-05-10 07:04] LABS: Calcium 8.9 mg/dl (8.6-10.3); Creatinine Clr Calc Pharmacy 134.9 ml/min; Est GFR (Non-African American) 98.4 ml/min; Potassium 3.5 mmol/L (3.5-5.1)
[2023-05-10] MEDS: POTASSIUM CHLORIDE CRTAB 20 MEQ TABCR PO SCH ×2 (08:21→21:57)
[2023-05-10] MEDS: CYCLOBENZAPRINE HCL 10 MG TAB PO SCH ×2 (08:21→21:55)
[2023-05-10] MEDS: PROPRANOLOL HCL 20 MG TAB PO SCH (08:21)
[2023-05-10] MEDS: GABAPENTIN 300 MG CAP PO SCH ×2 (08:21→21:56)
[2023-05-10] MEDS: hydroCHLOROthiazide 25 MG TAB PO SCH (08:21)
[2023-05-10] MEDS: busPIRone 15 MG TAB PO SCH ×2 (08:21→21:55)
[2023-05-10] MEDS: PANTOprazole 40 MG TAB PO SCH ×2 (08:21→21:56)
[2023-05-10] MEDS: INSULIN ASPART PER UNIT CHARGE SC SCH ×4 (08:31→22:03)
[2023-05-10] MEDS: LANTUS PER UNIT CHARGE SQ SCH ×2 (08:32→22:03)
[2023-05-10] MEDS: ENOXAPARIN INJ 40 MG/0.4 ML SYR SQ SCH ×2 (08:42→21:57)
[2023-05-10] MEDS ORDERED: SUMAtriptan succinate 25 MG TAB PO PRN (13:39)
[2023-05-10] MEDS: FLUCONAZOLE 100 MG TAB PO SCH (16:15)
[2023-05-10] MEDS: DAPTOmycin 350 MG in SYRINGE 0 ML IV SCH (17:03)
--- NOTE | 2023-05-10 17:38 | Hospitalist Progress Note ---
Date of Service May 10, 2023 Assessment & Plan (1) Cellulitis: Plan: Attending: Dr. Renteria 62-year-old female admitted 05/06/2023 with cellulitis of the abdomen, pannus, bilateral thighs. Multiple allergies to antibiotics. Started daptomycin for coverage. Blood cultures are negative x 2. Wound care has been consulted. We appreciate their input. Images are in the system. This time patient has no leukocytosis. She does have an elevated C-reactive protein which is improving but negative procalcitonin. Patient was started on daptomycin due to multiple oral allergies. She is scheduled with allergy for desensitization but this has not occurred at this time Will continue with miconazole for candidiasis and intertrigo and will add oral Diflucan. Monitor QTc as patient is on other QTc prolonging agents. Santyl will be applied every 12 hours to open areas under the pannus. Will also request you for our wound care to try and keep area as dry and control as possible Continue Q4H dressing changes to maintain dry area as much as possible (2) Poorly controlled type 2 diabetes mellitus: Plan: Jardiance, glipizide, metformin held while inpatient Continue with Lantus Close follow-up with Dr. Hager on discharge (3) Candidiasis, intertrigo: Plan: Continue miconazole. Add Fluconazole daily. Check EKG in the morning Discussed importance of hygiene at home. Patient does state that her daughter who is 20 years old and her live with her and assist with bathing (4) Hypokalemia: Plan: Potassium 3.5 Magnesium is 2.0 Check a.m. labs (5) Weakness: Plan: PT/OT as tolerated (6) Hypertension: Plan: Continue propranolol/hydrochlorothiazide Moderately controlled this morning with a BP of 150/89 No chest pain or tightness (7) GERD (gastroesophageal reflux disease): Plan: No acute complaints. 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 Wound care treatment has been augmented. Patient requires inpatient management of her infection at this time. Will ask Wound care to re-engage on Wednesday Admission and Anticipated Discharge Date Admission Date: May 06, 2023 Supervising Physician Co-Signing Physician Notes The patient was not seen by me. The chart was reviewed. Case discussed with HELEN Fitzgerald. Agree with assessment and plan Subjective Attending: Dr. Renteria Patient continues to improve from an infectious standpoint in her pannus. She does appear to have significant Kait infection. With Q4H wound care, panniculitis is seems to be improving and intertriginous areas are less macerated. Patient denies any significant pain. No fever or chills. She has no chest pain or tightness. Migraine headache is resolved with use of Imitrex yesterday no acute issues today Review of Systems 2 Review of Systems: A total of 10 systems was reviewed and is negative other than as listed in the HPI Physical Exam 2 Physical Exam: GENERAL : No acute distress EYES: No icterus, gaze conjugate NOSE: No evidence of epistaxis MOUTH: No lesions or candidiasis NECK: Supple LUNGS: CTA B/L, no wheezes, rales or rhonchi HEART: Regular, rate controlled ABDOMEN: Soft, NT, ND, BS Present. Skin seems to be less macerated under the pannus. More dry. Less erythema. Overall seems improved. EXTREMITIES: No LE edema, pedal pulses intact NEURO: A&OX3 Results & Data Results & Data Vital Signs (Past 12 Hours) Vital Signs Temp Pulse Resp BP Pulse Ox O2 Del Method 05/10/23 14:22 36.3 C L 74 18 113/63 95 Room Air 05/10/23 07:40 Room Air 05/10/23 07:34 36.7 C 77 16 110/69 95 Room Air Laboratory Results 05/10/23 06:12 05/10/23 06:12 PG Care Time/CCT Total # of Minutes Spent Total Time Spent with Patient: Total time spent is greater than 50% in coordination of care (as documented) at patient's floor/unit and/or counseling patient: 25 minutes Coding Level of Care Code 92615 SUB INP/OBS CARE 1/25MIN Diagnoses Cellulitis L03.90 Site of cellulitis: unspecified site Poorly controlled type 2 diabetes mellitus E11.65 Candidiasis, intertrigo B37.2 Hypokalemia E87.6 Weakness R53.1 Hypertension I10 GERD (gastroesophageal reflux disease) K21.9 Ming's disease E06.3 Migraine headache with aura G43.109 Time Spent (min) 25 (1) Cellulitis Site of cellulitis: unspecified site Qualified Code(s): L03.90 - Cellulitis, unspecified
[2023-05-10] MEDS: hydrOXYzine HCl 25 MG TAB PO PRN (21:54)
[2023-05-10] MEDS: ESCITALOPRAM OXALATE 20 MG TAB PO SCH (21:56)
[2023-05-10] MEDS: traZODone HCL 100 MG TAB PO PRN (21:58)
[2023-05-10] MEDS: tiZANidine HCL 4 MG TABLET PO PRN (21:58)
[2023-05-11 06:18] LABS: Hematocrit (blood only) 39.2 % (37.0-47.0); Mean Corpuscular Hemoglobin 28.8 pg (25.0-34.0); Mean Corpuscular Hgb Conc 33.2 g/dL (32.0-36.0); Mean Corpuscular Volume 86.9 fL (80.0-100.0); Mean Platelet Volume 8.9 fL (9.4-12.4); Platelet Count 291 K/uL (130-400); RDW Coefficient of Variation 13.5 % (11.5-14.5); RDW Standard Deviation 42.7 fL (36.4-46.3); Red Blood Count 4.51 M/uL (4.20-5.40); White Blood Count 9.95 K/ul (4.8-10.8)
[2023-05-11 06:34] LABS: BUN Creatinine Ratio 13.2 (10-20); Calcium 8.9 mg/dl (8.6-10.3); Creatinine Clr Calc Pharmacy 152.7 ml/min; Est GFR (African American) 118.8 ml/min; Est GFR (Non-African American) 102.5 ml/min; Magnesium 1.9 mg/dl (1.7-2.4); Potassium 3.4 mmol/L (3.5-5.1)
--- NOTE | 2023-05-11 08:56 | Hospitalist Progress Note ---
Date of Service May 11, 2023 Assessment & Plan (1) Cellulitis: Plan: 62-year-old female admitted 05/06/2023 with cellulitis of the abdomen, pannus, bilateral thighs. Multiple allergies to antibiotics. Started daptomycin for coverage. Blood cultures are negative x 2. Wound care has been consulted. Given multiple allergies and concerns for healthcare associated infections patient will be transition to oral linezolid twice daily, if tolerates may be able to go home and expertly 4 to 48 hours Will continue with miconazole for candidiasis and intertrigo and will add oral Diflucan, oral Diflucan may be dose 150 mg once a week for 4 weeks. Santyl will be applied every 12 hours to open areas under the pannus. Will also request you for our wound care to try and keep area as dry and control as possible Will not be able to space dressing changes to out every shift maintain dry area as much as possible (2) Poorly controlled type 2 diabetes mellitus: Plan: Jardiance, glipizide, metformin held while inpatient Continue with Lantus Close follow-up with Dr. Hager on discharge (3) Candidiasis, intertrigo: Plan: Continue miconazole. Add Fluconazole daily. Check EKG in the morning Discussed importance of hygiene at home. 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 Examining her and this morning her abdominal pads are dry that are within her inguinal folds. She still has an open area at the apex of her left inguinal fold which with a fleshy verrucous looking lesion which likely needs some attention from dermatology as an outpatient Otherwise she is improved greatly she is still weak and has not walked significantly and will participate in PT hopefully have her home in the next 24 to 48 hours Physical Exam Physical Exam: Her exam is regular Lung exam is clear Examining her pannus finds less erythema and induration her wound on her left pannus is healing there is a elliptical 3 cm verrucous lesion at the apex of her inguinal fold which is still slightly wet with friability. However the remainder of her intertrigo looks much improved. She has excoriations across most of her body from "dry skin" Results & Data Results & Data Vital Signs (Past 12 Hours) Vital Signs Temp Pulse Resp BP Pulse Ox Pulse Ox O2 Del Method 05/11/23 07:58 97.5 F L 96 H 16 144/88 H 94 Room Air 05/10/23 21:55 Room Air, Nasal Cannula, BiPAP 05/10/23 21:55 93 05/10/23 21:37 97.5 F L 90 16 147/88 H 93 Room Air O2 Del Method O2 Flow Rate 05/11/23 07:58 05/10/23 21:55 2 05/10/23 21:55 Room Air 05/10/23 21:37 Laboratory Results Reviewed CBC Reviewed chemistry augmented potassium PG Care Time/CCT Total # of Minutes Spent Total Time Spent with Patient: Total time spent is greater than 50% in coordination of care (as documented) at patient's floor/unit and/or counseling patient: Coding Level of Care Code 15812 SUB INP/OBS CARE 2/35MIN Diagnoses Cellulitis L03.90 Site of cellulitis: unspecified site Poorly controlled type 2 diabetes mellitus E11.65 Candidiasis, intertrigo B37.2 Hypokalemia E87.6 Weakness R53.1 Hypertension I10 Ming's disease E06.3 Migraine headache with aura G43.109 (1) Cellulitis Site of cellulitis: unspecified site Qualified Code(s): L03.90 - Cellulitis, unspecified
[2023-05-11] MEDS: CYCLOBENZAPRINE HCL 10 MG TAB PO SCH ×2 (09:10→20:00)
[2023-05-11] MEDS: busPIRone 15 MG TAB PO SCH ×2 (09:10→19:59)
[2023-05-11] MEDS: GABAPENTIN 300 MG CAP PO SCH ×2 (09:10→20:00)
[2023-05-11] MEDS: PANTOprazole 40 MG TAB PO SCH ×2 (09:10→20:04)
[2023-05-11] MEDS: hydroCHLOROthiazide 25 MG TAB PO SCH (09:10)
[2023-05-11] MEDS: PROPRANOLOL HCL 20 MG TAB PO SCH (09:10)
[2023-05-11] MEDS: ENOXAPARIN INJ 40 MG/0.4 ML SYR SQ SCH ×2 (09:11→20:02)
[2023-05-11] MEDS: POTASSIUM CHLORIDE CRTAB 20 MEQ TABCR PO SCH ×2 (09:16→20:01)
[2023-05-11] MEDS: LANTUS PER UNIT CHARGE SQ SCH ×2 (09:17→22:12)
[2023-05-11] MEDS: INSULIN ASPART PER UNIT CHARGE SC SCH ×4 (09:17→22:12)
[2023-05-11] MEDS: hydrOXYzine HCl 25 MG TAB PO PRN ×2 (09:21→20:17)
--- NOTE | 2023-05-11 12:00 | Electrocardiogram Report ---
Test Reason : Blood Pressure : / mmHG Vent. Rate : 097 BPM Atrial Rate : 097 BPM P-R Int : 138 ms QRS Dur : 082 ms QT Int : 378 ms P-R-T Axes : 034 059 066 degrees QTc Int : 480 ms Normal sinus rhythm Nonspecific T wave abnormality Abnormal ECG When compared with ECG of 07-MAY-2023 09:50, Nonspecific T wave abnormality now evident in Inferior leads Nonspecific T wave abnormality, worse in Anterolateral leads Confirmed by Ernie Pozo ([id number]) on 05/11/2023 11:59:59 AM Referred By: REFERRED SELF Confirmed By:Jamie Pozo
[2023-05-11] MEDS ORDERED: POLYETHYLENE (MIRALAX) 17 GM PACK PO SCH (14:15)
[2023-05-11] MEDS: FLUCONAZOLE 100 MG TAB PO SCH (14:20)
[2023-05-11] MEDS: tiZANidine HCL 4 MG TABLET PO PRN (14:20)
[2023-05-11 19:55] VITALS: TEMP 98.1
[2023-05-11] MEDS: traZODone HCL 100 MG TAB PO PRN (20:04)
[2023-05-11] MEDS: ACETAMINOPHEN 325 MG TAB PO PRN (20:17)
[2023-05-11] MEDS: LINEZOLID 600 MG TAB PO SCH (20:18)
[2023-05-12 08:08] VITALS: BP 144/84; PULSE 91; RESP 18; O2SAT 95
[2023-05-12 08:36] LABS: Hematocrit (blood only) 44.7 % (37.0-47.0); Hemoglobin 14.2 g/dl (12.0-16.0); Mean Corpuscular Hemoglobin 28.5 pg (25.0-34.0); Mean Corpuscular Hgb Conc 31.8 g/dL (32.0-36.0); Mean Corpuscular Volume 89.6 fL (80.0-100.0); Mean Platelet Volume 9.2 fL (9.4-12.4); Platelet Count 351 K/uL (130-400); RDW Coefficient of Variation 13.4 % (11.5-14.5); RDW Standard Deviation 43.9 fL (36.4-46.3); Red Blood Count 4.99 M/uL (4.20-5.40); White Blood Count 8.57 K/ul (4.8-10.8)
[2023-05-12] MEDS ORDERED: DOCUSATE SODIUM 100 MG CAP PO SCH (09:00)
[2023-05-12 09:07] LABS: BUN Creatinine Ratio 12.2 (10-20); Blood Urea Nitrogen 6 mg/dl (6-23); Calcium 9.2 mg/dl (8.6-10.3); Carbon Dioxide 28 mmol/L (21-32); Chloride 102 mmol/L (98-107); Creatinine Clr Calc Pharmacy 165.2 ml/min; Est GFR (African American) 121.9 ml/min; Est GFR (Non-African American) 105.2 ml/min; Glucose 141 mg/dl (70-99(Fasting))
[2023-05-12] MEDS: LANTUS PER UNIT CHARGE SQ SCH (09:13)
[2023-05-12] MEDS: LINEZOLID 600 MG TAB PO SCH (09:14)
[2023-05-12] MEDS: INSULIN ASPART PER UNIT CHARGE SC SCH ×2 (09:14→12:58)
[2023-05-12] MEDS: PANTOprazole 40 MG TAB PO SCH (09:15)
[2023-05-12] MEDS: PROPRANOLOL HCL 20 MG TAB PO SCH (09:15)
[2023-05-12] MEDS: hydroCHLOROthiazide 25 MG TAB PO SCH (09:16)
[2023-05-12] MEDS: POTASSIUM CHLORIDE CRTAB 20 MEQ TABCR PO SCH (09:16)
[2023-05-12] MEDS: busPIRone 15 MG TAB PO SCH (09:17)
[2023-05-12] MEDS: CYCLOBENZAPRINE HCL 10 MG TAB PO SCH (09:17)
[2023-05-12] MEDS: GABAPENTIN 300 MG CAP PO SCH (09:17)
[2023-05-12] MEDS: ENOXAPARIN INJ 40 MG/0.4 ML SYR SQ SCH (09:18)
[2023-05-12 11:21] LABS: Potassium 4.7 mmol/L (3.5-5.1)
[2023-05-12] MEDS: hydrOXYzine HCl 25 MG TAB PO PRN (12:58)
--- NOTE | 2023-05-12 16:58 | Discharge Summary ---
Date of Service May 12, 2023 Admission HPI Per Admitting Provider Ene is a 62-year-old female with a past medical history of multiple medication allergies, type II DM, morbid obesity BMI greater than 50, hyperlipidemia, GERD, asthma, anemia, anxiety who presents for evaluation of a bilateral groin infection. Per ER signout/review patient has had bilateral groin wounds progressing over the last 2 weeks, expanded erythema of her right lower extremity for the past week, and has had intermittent chills. She follows with wound clinic, was referred to the ER by her PCP. She is followed by infectious disease for recurrent yeast infections which did not improve on nystatin, which did improve on itraconazole, and was transition to clotrimazolebetamethasone with improvement. Open wounds of bilateral groin and pannus left greater than right with erythema. Suspected to have possible underlying component of hidradenitis. She is with antibiotic allergies to penicillin, Keflex and pending outpatient infectious disease testing DM2, on jardiance/metoforming Pt is scheduled for allergy testing for challenge, with [facility] [place] [facility]. Has not taken PCN in many years, broke out in broke out in itchy red rash with hives all over upper and lower body without lip/tongue involvement. Is not sure about keflex allergy. Has taken clindamycin and does not remember the reaction, but has had anaphylaxis to 'an antibiotic I don't remember what, but I took a lot of benadril and other medicines for it and eventually got better.' Is pending cardiology followup but does not know why She took her morning pills today No ches tpain or chest pressure. No syncope or presyncope Chronic dry cough, no sputum production. Medical History: Reviewed Medications: Reviewed Surgical History: Reviewed Family history: Reviewed Allergies: Reviewed, see above Social History: No tobacco/cigarette/vape use. No etoh use. No marijuana use Code Status: Principal Diagnosis panniculitis intertrigo morbid obesity Discharge Exam pts erythema and wounds have improved with treatment still with verrucous lesion to right inguinal fold Discharge Data Allergies Allergy/AdvReac Type Severity Reaction Status Date / Time cephalexin Allergy Severe hives Verified 04/30/23 14:14 clindamycin Allergy Severe Anaphylaxis Verified 04/30/23 14:14 Iodinated Contrast Media Allergy Severe "X-RAY DYE Verified 04/30/23 14:14 - body SWELLING" - FROM CT MYELOGRAM. Penicillins Allergy Severe HIVES AND Verified 04/30/23 14:14 N/V nickel Allergy Mild Rash Verified 04/30/23 14:14 zolpidem AdvReac Severe Sleep Walk Verified 04/30/23 14:14 aspirin AdvReac Intermediate upset Verified 04/30/23 14:14 stomach codeine AdvReac Intermediate HEADACHE Verified 04/30/23 14:14 sumatriptan AdvReac Intermediate Tachycardia Verified 04/30/23 14:14 cetirizine AdvReac Mild Drowsiness Verified 04/30/23 14:14 contact metal agent AdvReac Rash Verified 05/06/23 23:57 PAIN MEDS AdvReac Intermediate NAUSEA Uncoded 04/30/23 14:14 Cryselle-28 TABS AdvReac Unknown PT DOESNT' Uncoded 04/30/23 14:14 REMEMBER Excedrin TABS AdvReac Unknown Gastrointestinal Uncoded 04/30/23 14:14 Upset Consultations 05/06/23 16:19 ED Decision to Admit Stat Hospital Course (1) Cellulitis: 62-year-old female admitted 05/06/2023 with cellulitis of the abdomen, pannus, bilateral thighs. Multiple allergies to antibiotics. Started daptomycin for coverage. Blood cultures are negative x 2. Wound care will continue to see pt as an outpt Given multiple allergies and concerns for healthcare associated infections this patient was transitioned to oral linezolid twice daily, Will continue with miconazole for candidiasis and intertrigo and will add oral Diflucan, oral Diflucan may be dose 150 mg once a week for 4 weeks. will try to have good wound care, rx for wound absorbant pads (2) Poorly controlled type 2 diabetes mellitus: Jardiance, glipizide, metformin resume at discharge Close follow-up with Dr. Hager on discharge (3) Candidiasis, intertrigo: Continue miconazole. Add Fluconazole daily. Check EKG in the morning Discussed importance of hygiene at home. Patient does state that her daughter who is 20 years old and her live with her and assist with bathing and wound care (4) Hypokalemia: persists replete orally (5) Weakness: PT/OT as tolerated (6) Hypertension: chronic and stable Continue propranolol/hydrochlorothiazide (7) Ming's disease: No current treatment Patient's TSH was 0.978 05/08/2023 Outpatient management (8) Migraine headache with aura: Continue Fioricet as ordered Tolerated trial of Imitrex Total Time Total Time Spent Total Time Spent (In Minutes): It required greater than 30 minutes to prepare this patient for discharge. Discharge Plan Discharge Items Patient Disposition: Home - Self-Care Reason For Visit: CELLULITIS, PANNICULITIS Discharge Diagnosis: skin infection intertirgo Activity: Per Instructions section Non-emergency contact: Primary Care Provider Call non-emergency contact if: your symptoms worsen Follow-up/Referrals: Tiny Hager DO [Primary Care Provider] - 05/14/23 10:25 am ([facility] OFFICE WITH DR UDAY LUDWIG) Diet: Carb Consistent or DM2 Addtl Attending Provider Instructions: Please keep your skin clean and dry in your groin, wash daily wiht mild soap and dry, is there is drainage or moisture use absorbant pad apply cream and change dressing when it becomes saturated on your dry skin use a moisturizing lotion Please have your primary care refer you to a Differential Specialist Pending Studies at Discharge: No Stand-Alone Forms: My [employer], Smoking Cessation Medications and DC Order Prescriptions: New linezolid 600 mg Tablet 600 mg PO BID Qty: 10 0RF fluconazole 50 mg Tablet 150 mg PO Q7D Qty: 9 0RF (DME) Aquacel Hydrofiber Dressing 0.39 X 18 " bandage See Rx Instructions .Route Qty: 5 5RF Rx Instructions: As directed, to open area change when soiled Continued cholecalciferol (vitamin D3) 1,250 mcg (50,000 unit) capsule 1,250 mcg PO .FRIDAYS ondansetron 4 mg tablet,disintegrating 4 mg PO Q8H PRN (Reason: Other) Sutab 1.479-0.188- 0.225 gram tablet See Rx Instructions PO .COMPLEX Qty: 24 0RF Rx Instructions: TAKE FIRST DOSE AT 6 PM AND SECOND DOSE 6 HOURS PRIOR TO PROCEDURE BIN: [id number] PCN: CN GROUP: [id number] glipizide 10 mg tablet 10 mg PO QAM cyclobenzaprine 10 mg tablet 10 mg PO BID buspirone 30 mg tablet 30 mg PO BID propranolol 40 mg tablet 40 mg PO QAM trazodone 100 mg tablet 200 mg PO HS Jardiance 10 mg tablet 25 mg PO QAM Rx Instructions: last dose will be 03/05 tizanidine 4 mg Tablet 4 mg PO Q8H PRN (Reason: MUSCLE SPASMS) Patient Comments: NEEDED AND ROUTINE TAKE ONE AT NIGHT hydrochlorothiazide 50 mg Tablet 25 mg PO QAM metformin 1,000 mg Tablet 1,000 mg PO BID omeprazole 20 mg Tablet,Delayed Release (Dr/Ec) 20 mg PO BID gabapentin 300 mg Tablet Extended Release 24 Hr 300 mg PO BID cyanocobalamin (vitamin B-12) 1,000 mcg/mL Kit 1,000 mcg IM MONTHLY lorazepam [Ativan] 0.5 mg Tablet 0.5 mg PO BID PRN (Reason: Anxiety) hydroxyzine pamoate 25 mg Capsule 25 - 50 mg PO QID PRN (Reason: Itching) [id number] [Fioricet] 50-300-40 mg capsule 1 cap PO ONCE PRN (Reason: MIGRAINES) Held simvastatin 20 mg Tablet 20 mg PO QPM Hold Instructions: Resume on 05/18/23. escitalopram oxalate 20 mg Tablet 20 mg PO HS Hold Instructions: Resume on 05/18/23. Discontinued itraconazole 100 mg capsule 0 mg PO DAILY Patient Comments: pt isnt sure of this medication Rx Instructions: must administer with a meal/food trazodone 50 mg tablet 50 mg PO HS Discharge Orders: Discharge Order (Routine); Ordered 05/12/23 Ordered By: Srinivas Hirsch/Other Patient Handouts: Healthy Meals for Diabetes, Diabetes Food Shop Meals Prep, Diabetes: Meal Planning, Diabetes Carbs Fats Protein Admission Data Admit Date/Time: 05/06/23 17:51 Attending Provider: Srinivas Jurado Admit Provider: Rd Rinaldi Primary Care Provider: Tiny Hager Other Providers: Chuck Cavanaugh Other Interventions: Discharge Summary Assessment (RN) Last Done: 05/12/23 12:08 Coding Level of Care Code 06302 INP/OBS DISCH >30 MIN Diagnoses Cellulitis L03.90 Site of cellulitis: unspecified site Poorly controlled type 2 diabetes mellitus E11.65 Candidiasis, intertrigo B37.2 Hypokalemia E87.6 Weakness R53.1 Hypertension I10 Ming's disease E06.3 Migraine headache with aura G43.109
[2023-05-18] MEDS ORDERED: FLUCONAZOLE 50 MG TAB PO SCH (09:00)
== END 2023-05-12 15:48 | disposition home or self-care (01) | DRG 603 ==
LOC: ED 14:15 → SUATTDRO 17:51 → 3N 17:51
DX: I10 Essential (primary) hypertension; Z91.041 Radiographic dye allergy status; E11.9 Type 2 diabetes mellitus without complications; L03.818 Cellulitis of other sites; E87.6 Hypokalemia; Z88.1 Allergy status to other antibiotic agents; Z88.5 Allergy status to narcotic agent; L03.116 Cellulitis of left lower limb; Z88.6 Allergy status to analgesic agent; E66.01 Morbid (severe) obesity due to excess calories; Z83.3 Family history of diabetes mellitus; Z66 Do not resuscitate; B37.9 Candidiasis, unspecified; K21.9 Gastro-esophageal reflux disease without esophagitis; B95.1 Streptococcus, group B, as the cause of diseases classified elsewhere; G43.909 Migraine, unspecified, not intractable, without status migrainosus; I87.8 Other specified disorders of veins; Z79.84 Long term (current) use of oral hypoglycemic drugs; E06.3 Autoimmune thyroiditis; Z98.84 Bariatric surgery status; Z68.43 Body mass index [BMI] 50.0-59.9, adult; L03.311 Cellulitis of abdominal wall; F41.9 Anxiety disorder, unspecified; L03.115 Cellulitis of right lower limb; L30.4 Erythema intertrigo; M79.3 Panniculitis, unspecified

== ENCOUNTER 2024-09-06 21:05 | Inpatient (IN) ==
[2024-09-06 22:20] LABS: Basophils # (auto) 0.11 K/uL (0.00-0.20); Basophils % (auto) 0.6 %; Eosinophils % (auto) 1.2 %; Hematocrit (blood only) 43.3 % (37.0-47.0); Hemoglobin 13.8 g/dl (12.0-16.0); Immature Granulocytes # (auto) 0.06 K/uL (0.01-0.20); Immature Granulocytes % (auto) 0.3 %; Lymphocytes # (auto) 2.56 K/uL (1.20-3.40); Lymphocytes % (auto) 14.8 %; Mean Corpuscular Hemoglobin 26.7 pg (25.0-34.0); Mean Corpuscular Hgb Conc 31.9 g/dL (32.0-36.0); Mean Corpuscular Volume 83.9 fL (80.0-100.0); Mean Platelet Volume 10.1 fL (9.4-12.4); Monocytes # (auto) 0.98 K/uL (0.11-0.59); Monocytes % (auto) 5.7 %; Neutrophils # (auto) 13.38 K/uL (1.40-6.50); Neutrophils % (auto) 77.4 %; Platelet Count 256 K/uL (130-400); RDW Coefficient of Variation 13.6 % (11.5-14.5); RDW Standard Deviation 41.4 fL (36.4-46.3); Red Blood Count 5.16 M/uL (4.20-5.40); White Blood Count 17.29 K/ul (4.8-10.8)
[2024-09-06 22:22] LABS: Alanine Aminotransferase 9 U/L (7-52); Albumin Globulin Ratio 1.2 (0.9-2); Albumin Level 4.3 gm/dl (3.4-5.0); Alkaline Phosphatase 65 U/L (34-104); Anion Gap 7 (3-11); Aspartate Aminotransferase 13 U/L (13-39); BUN Creatinine Ratio 15.6 (10-20); Bilirubin,Total 0.4 mg/dl (0.2-1.0); Blood Urea Nitrogen 10 mg/dl (6-23); Calcium 9.4 mg/dl (8.6-10.3); Carbon Dioxide 34 mmol/L (21-32); Chloride 98 mmol/L (98-107); Globulin 3.6 gm/dl (2.5-4.0); Glucose 188 mg/dl (70-99(Fasting)); Lipase 25 U/L (11-82); Potassium 3.6 mmol/L (3.5-5.1); Sodium 139 mmol/L (136-145); Total Protein 7.9 gm/dl (6.0-8.3)
[2024-09-06 22:29] LABS: Troponin I High Sensitivity < 2.3 pg/ml (0-14)
[2024-09-06 22:59] LABS: Adenovirus PCR Not Detected (NotDetected); Bordetella parapertussis PCR Not Detected (NotDetected); Bordetella pertussis PCR Not Detected (NotDetected); Chlamydia pneumoniae PCR Not Detected (NotDetected); Coronavirus 229E PCR Not Detected (NotDetected); Coronavirus CoV-2 (COVID19)PCR Not Detected (NotDetected); Coronavirus HKU1 PCR Not Detected (NotDetected); Coronavirus NL63 PCR Not Detected (NotDetected); Coronavirus OC43PCR Not Detected (NotDetected); Human Metapneumovirus PCR Not Detected (NotDetected); Influenza A PCR Not Detected (NotDetected); Influenza B PCR Not Detected (NotDetected); Mycoplasma pneumoniae PCR Not Detected (NotDetected); Parainfluenza Virus 1 PCR Not Detected (NotDetected); Parainfluenza Virus 2 PCR Not Detected (NotDetected); Parainfluenza Virus 3 PCR Not Detected (NotDetected); Parainfluenza Virus 4 PCR Not Detected (NotDetected); Respiratory Syncytial VirusPCR Not Detected (NotDetected); Rhinovirus/Enterovirus PCR Not Detected (NotDetected)
--- NOTE | 2024-09-06 23:21 | XRay Report ---
Exam(s): XR CXR 1 VIEW EXAM: XR Chest, 1 View CLINICAL HISTORY: Reason for exam: fatigue. TECHNIQUE: Frontal view of the chest. COMPARISON: 08/27/2024. FINDINGS: There is a poor inspiratory effort. Lungs: There are linear densities at the left lung base.. No consolidation. Pleural space: No pleural effusion is seen. No pneumothorax. Heart: The heart is normal in size.. Mediastinum: There is mild uncoiling of thoracic aorta.. . IMPRESSION: There is some mild scarring or atelectasis at the left lung base. Electronically signed by: Bravo Schaeffer MD 09/06/24 23:20 PM
[2024-09-07] MEDS ORDERED: VANCOMYCIN CONSULT ACTIVE PRN ×2 (00:50→03:28)
--- NOTE | 2024-09-07 01:03 | Emergency Department Note ---
Impression & Plan Abdominal wall cellulitis, Leukocytosis, Cellulitis of groin, right ED Provider Note NAME: CHRISTINA HORNER AGE: 64 SEX: F : 1960 ARRIVES VIA: Walk-In INFORMANT: Patient, ED PROVIDER(S): Roxanne Dumont MD CHIEF COMPLAINT: Weakness, paresthesias HPI: This is a 64-year-old female senting for weakness and paresthesias. Patient states that she had a TAVR on August 17. She notes that this is progressed well without any complications. She notes that over the past few days she has had a new cough, fatigue and tiredness. She has no shortness of breath, dyspnea or exertional dyspnea. She has no orthopnea. She notes that she has bilateral tingling in her hands and feet. This is new. She has no weakness of these extremities. She does have neuropathy and is on gabapentin from diabetes. Otherwise no nausea, vomiting, fevers, chills. ROS: See above HPI for pertinent positives & negatives. A total of 10 systems reviewed and were otherwise negative. PAST MEDICAL HISTORY: See Below PAST SURGICAL HISTORY: See Below FAMILY HISTORY: See Below SOCIAL HISTORY: See Below HOME MEDICATIONS: See Below ALLERGIES: See Below VITALS: See Below PHYSICAL EXAMINATION: General: resting comfortably in no acute distress Head: Normocephalic and atraumatic Eyes: Normal inspection, extraocular muscles intact Ear, nose, throat: Normal external exam Neck: Normal range of motion Respiratory: lungs clear to auscultation bilaterally Cardiovascular: Regular rate/rhythm, no murmur GI: soft, nontender, significant excoriated intertriginous zone underlying pannus Extremities: nontender, moves all extremities, pulses intact in all extremities, no [place] or [place] lesions, right lower extremity swelling Neuro: The patient awake and alert, appropriately conversive, no focal deficits, symmetric faces Skin: Warm, dry, and intact MEDICAL DECISION MAKING: This is a 64-year-old female presenting for weakness and paresthesias. Will do screening workup to assess for signs of sepsis, ACS, CHF. -Patient has a significantly cytosis over 17. Otherwise blood work is generally reassuring without anemia, electro disturbances creatinine elevation or transaminitis. Troponin negative -ECG independently interpreted by me with normal sinus rhythm, rate of 74, normal NM, normal QRS, normal QTc, no ST segment elevations consistent with STEMI criteria -ultrasound ordered to rule out DVT. This is negative for DVT based on tech read -Chest Xray independently interpreted by me showing no pneumothorax, focal opacity, or pleural effusions. - Respiratory panel is negative - Patient later tells me that she has a yeast infection underneath her pannus. On the right side there is significant excoriation, tenderness consistent with her possible severe cellulitis. Will treat with vancomycin and Diflucan - She is not dealing with this rash of this infection for over a year. states that this is the worst the rash is ever been. Will admit for likely cellulitis at this time failing outpatient treatment as well as significant leukocytosis. Differential diagnosis: URI, sepsis, pneumonia, ACS, CHF Independent History obtained from: Diagnostics interpreted by me: ECG: See above Cardiac Monitoring: An order was placed for continuous cardiac monitoring. The monitor shows a rate of 87 with sinus rhythm. Past Med/Surg History Problem List (Updated 09/07/24 @ 01:33 by Roxanne Dumont MD) Cellulitis of groin, right (Acute) Leukocytosis (Acute) Abdominal wall cellulitis (Acute) Chills (Acute) Chest pressure (Acute) Thyroid nodule (Acute) Acute neck pain (Acute) Stage III pressure ulcer Open wound of breast (Acute) Migraine headache with aura Hypokalemia (Acute) Leukocytosis (Acute) Weakness (Acute) Cellulitis Allergy to multiple antibiotics Poorly controlled type 2 diabetes mellitus (Acute) Candidiasis, intertrigo (Chronic) Open wound of groin with complication (Acute) Lower extremity edema (Chronic) Open wound of both legs with complication (Acute) Abnormal ankle brachial index (FARHA[place]) (Acute) Obesity, morbid, BMI 50 or higher (Chronic) Abdominal pannus Encounter for pre-operative examination Chronic migraine without aura Myalgia and myositis (Acute) Sleep disorder (Acute) Spinal stenosis (Acute) Vitamin D deficiency (Acute) Lumbar disc disease with radiculopathy Neck pain (Acute) DJD (degenerative joint disease) (Chronic) Hypertension (Chronic) Ming's disease (Chronic) Chronic neck pain (Chronic) Migraine (Chronic) Anxiety (Chronic) Depression (Chronic) Chronic back pain (Chronic) Alba's palsy (Chronic) Hyperlipidemia (Chronic) GERD (gastroesophageal reflux disease) (Chronic) Anemia (Chronic) Diabetes (Chronic) H/O Sjogren's disease (Chronic) Anemia (Chronic) Head trauma (Acute) Pneumonia (Chronic) Bronchitis (Chronic) Asthma (Chronic) Abrasion of right elbow (Acute) Concussion (Acute) Head trauma (Acute) Sleep apnea cpap with 4 liters of oxygen Lumbar radiculopathy Medical History Anxiety and depression Visit for wound care 04/16/23>follows with [facility] (biopsy of left leg and abdomen>see results) to follow up with infectious disease 04/27/23 ---has yeast infection in the folds of skin on abdomen Morbid obesity with BMI of 50.0-59.9, adult 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 IN ED NO SLURRED SPEECH NOTED. EVALUSTION DONE - RESULTS PER ED VISIT - R/T ALBA'S PALSY - MEDROL DOSE PACK GIVEN AND D/C TO HOME HX BELLS PALSY X2 Osteoarthritis Fibromyalgia Ming's thyroiditis DJD (degenerative joint disease) Chronic neck and back pain GERD (gastroesophageal reflux disease) Diabetes mellitus, type 2 Sjogren's syndrome Anemia Migraine Hyperlipidemia Hypertension Surgical History Family history of reaction to anesthesia both parents N/V S/P epidural steroid injection Nausea and vomiting after administration of anesthetic agent prior surgeries at [facility] has been pretreated and done well without n/v. History of dilatation and curettage History of carpal tunnel release bilt Status post cervical spinal fusion x2--c4-5, c5-6 normal ROM History of arthroscopy of left knee History of colonoscopy History of esophagogastroduodenoscopy (EGD) [place] of gastric bypass [place] [facility] [place] of tooth extraction wisdom teeth Family History Father Family history of reaction to anesthesia nauseated Family history of diabetes mellitus Social History Smoking Status: Never smoker Second Hand Exposure: No; Do You Dip or Chew Tobacco: No; Hx Alcohol Use: No Hx Substance Use: No Preferred Language: Lao Communication Ability: Effective Visual Impairment: Limited Hearing Ability: Hard of Hearing It Communications Specialist Required: No Beliefs That Will Affect Care: None marital status: Current Living Situation: Spouse Current Living Situation Comment: And daughter Feels Safe at Home: Yes Diet: regular Assistive Devices: Cane, CPAP, Walker and Wheelchair Allergies Allergies Allergy/AdvReac Type Severity Reaction Status Date / Time cephalexin Allergy Severe hives Verified 08/18/23 08:03 clindamycin Allergy Severe Anaphylaxis Verified 08/18/23 08:03 Iodinated Contrast Media Allergy Severe "X-RAY DYE Verified 08/18/23 08:03 - body SWELLING" - FROM CT MYELOGRAM. Penicillins Allergy Severe HIVES AND Verified 08/18/23 08:03 N/V nickel Allergy Mild Rash Verified 08/18/23 08:03 zolpidem AdvReac Severe Sleep Walk Verified 08/18/23 08:03 aspirin AdvReac Intermediate upset Verified 08/18/23 08:03 stomach codeine AdvReac Intermediate HEADACHE Verified 08/18/23 08:03 sumatriptan AdvReac Intermediate Tachycardia Verified 08/18/23 08:03 cetirizine AdvReac Mild Drowsiness Verified 08/18/23 08:03 contact metal agent AdvReac Rash Verified 08/18/23 08:03 PAIN MEDS AdvReac Intermediate NAUSEA Uncoded 08/18/23 08:03 Cryselle-28 TABS AdvReac Unknown PT DOESNT' Uncoded 08/18/23 08:03 REMEMBER Excedrin TABS AdvReac Unknown Gastrointestinal Uncoded 08/18/23 08:03 Upset Home Meds Home Medications Medication Instructions Recorded Confirmed cyanocobalamin (vitamin B-12) 1,000 mcg IM MONTHLY 03/15/18 09/07/24 1,000 mcg/mL injection kit escitalopram oxalate 20 mg tablet 20 mg PO HS 03/15/18 09/07/24 gabapentin 300 mg tablet,extended 300 mg PO BID 03/15/18 09/07/24 release 24 hr metformin 1,000 mg tablet 1,000 mg PO BID 03/15/18 09/07/24 tizanidine 4 mg tablet 4 mg PO Q8H PRN MUSCLE SPASMS 03/15/18 09/07/24 buspirone 30 mg tablet 30 mg PO BID 05/23/19 09/07/24 cyclobenzaprine 10 mg tablet 10 mg PO BID 05/23/19 09/07/24 propranolol 40 mg tablet 40 mg PO QAM 05/23/19 09/07/24 trazodone 100 mg tablet 200 mg PO HS 05/23/19 09/07/24 glipizide 10 mg tablet 10 mg PO QAM 05/24/19 09/07/24 lorazepam 0.5 mg tablet (Ativan) 0.5 mg PO BID PRN Anxiety 04/24/22 09/07/24 hydroxyzine pamoate 25 mg capsule 25 - 50 mg PO QID PRN Itching 10/28/22 09/07/24 aheliutswl-fymxtvanpnrth-zkstgfak 1 cap PO ONCE PRN MIGRAINES 04/16/23 09/07/24 50 mg-300 mg-40 mg capsule (Fioricet) cholecalciferol (vitamin D3) 1,250 1,250 mcg PO .Fridays04/16/23 09/07/24 mcg (50,000 unit) capsule ondansetron 4 mg disintegrating 4 mg PO Q8H PRN Nausea And Vomiting 04/16/23 09/07/24 tablet itraconazole 100 mg capsule 100 mg PO WK 06/07/23 09/07/24 aspirin 81 mg tablet,delayed 81 mg PO QPM 09/07/24 09/07/24 release clopidogrel 75 mg tablet 75 mg PO QPM 09/07/24 09/07/24 clotrimazole-betamethasone 1 1 applic topical DAILY 09/07/24 09/07/24 %-0.05 % topical cream furosemide 40 mg tablet 40 mg PO QAM 09/07/24 09/07/24 hydrochlorothiazide 25 mg tablet 25 mg PO QAM 09/07/24 09/07/24 pantoprazole 20 mg tablet,delayed 20 mg PO BID 09/07/24 09/07/24 release potassium chloride 20 mEq 20 meq PO BID 09/07/24 09/07/24 tablet,extended release rosuvastatin 20 mg tablet 20 mg PO HS 09/07/24 09/07/24 spironolactone 25 mg tablet 12.5 mg PO QAM 09/07/24 09/07/24 tirzepatide 12.5 mg/0.5 mL 12.5 mg subcut WK 09/07/24 09/07/24 subcutaneous pen injector (Porter) trazodone 50 mg tablet 50 mg PO HS 09/07/24 09/07/24 Results & Data (ED) Vital Signs Vital Signs - 24 hr 09/06/24 21:08 09/06/24 21:12 09/06/24 23:00 Temperature 36.4 C L Temperature Source Temporal Artery Scan Pulse Rate 76 Pulse Rate [Finger] 98 H 87 Pulse Rhythm [Finger] Regular Regular Pulse Strength [Finger] Normal Respiratory Rate 18 20 20 Respiratory Effort / Characteristics Non-Labored Spontaneous Non-Labored Non-Labored Respiratory Depth Normal Normal Normal Respiratory Pattern Regular Regular Blood Pressure 154/93 H Blood Pressure [Right Arm] 141/79 H 149/92 H Blood Pressure Mean 113 Blood Pressure Mean [Right Arm] 99 111 Blood Pressure Position Sitting Pulse Oximetry 96 98 93 Oxygen Delivery Method Room Air Room Air Room Air Sepsis Recent Fever Within 48 Hours No Sepsis New/Unexplained Change in Mental Status N/A Sepsis Action Taken by Nursing No Action Required Laboratory Data 09/06/24 21:35 09/06/24 21:35 Lab Results 09/06/24 09/06/24 Range/Units 21:35 22:00 WBC 17.29 H (4.8-10.8) K/ul RBC 5.16 (4.20-5.40) M/uL Hgb 13.8 (12.0-16.0) g/dl Hct 43.3 (37.0-47.0) % MCV 83.9 (80.0-100.0) fL MCH 26.7 (25.0-34.0) pg MCHC 31.9 L (32.0-36.0) g/dL RDW Std Deviation 41.4 (36.4-46.3) fL RDW Coeff of [place] 13.6 (11.5-14.5) % Plt Count 256 (130-400) K/uL MPV 10.1 (9.4-12.4) fL Immature Gran % (Auto) 0.3 % Neut % (Auto) 77.4 % Lymph % (Auto) 14.8 % [place] % (Auto) 5.7 % Eos % (Auto) 1.2 % Baso % (Auto) 0.6 % Neut # (Auto) 13.38 H (1.40-6.50) K/uL Lymph # (Auto) 2.56 (1.20-3.40) K/uL [place] # (Auto) 0.98 H (0.11-0.59) K/uL Eos # (Auto) 0.20 (0.00-0.50) K/uL Baso # (Auto) 0.11 (0.00-0.20) K/uL Immature Gran # (Auto) 0.06 (0.01-0.20) K/uL Sodium 139 (136-145) mmol/L Potassium 3.6 (3.5-5.1) mmol/L Chloride 98 (98-107) mmol/L Carbon Dioxide 34 H (21-32) mmol/L Anion Gap 7 (3-11) BUN 10 (6-23) mg/dl Creatinine 0.64 (0.6-1.2) mg/dl Est Cr Clr Drug Dosing Not Reportable eGFR 99.24 BUN/Creatinine Ratio 15.6 (10-20) Glucose 188 H (70-99(Fasting)) mg/dl Calcium 9.4 (8.6-10.3) mg/dl Total Bilirubin 0.4 (0.2-1.0) mg/dl AST 13 (13-39) U/L ALT 9 (7-52) U/L Alkaline Phosphatase 65 (34-104) U/L Troponin I High Sens < 2.3 (0-14) pg/ml Total Protein 7.9 (6.0-8.3) gm/dl Albumin 4.3 (3.4-5.0) gm/dl Globulin 3.6 (2.5-4.0) gm/dl Albumin/Globulin Ratio 1.2 (0.9-2) Lipase 25 (11-82) U/L Adenovirus (PCR) Not Detected (NotDetected) B. pertussis DNA (PCR) Not Detected (NotDetected) B.parapertussis DNA PCR Not Detected (NotDetected) C. pneumoniae DNA (PCR) Not Detected (NotDetected) Coronavirus OC43 (PCR) Not Detected (NotDetected) Coronavirus HKU1 (PCR) Not Detected (NotDetected) Coronavirus 229E (PCR) Not Detected (NotDetected) SARS-CoV-2 (PCR) Not Detected (NotDetected) Coronavirus NL63 (PCR) Not Detected (NotDetected) Human Metapneumovir PCR Not Detected (NotDetected) Influenza Type A (PCR) Not Detected (NotDetected) Influenza Type B (PCR) Not Detected (NotDetected) M. pneumoniae (PCR) Not Detected (NotDetected) Parainfluenza 1 (PCR) Not Detected (NotDetected) Parainfluenza 2 (PCR) Not Detected (NotDetected) Parainfluenza 3 (PCR) Not Detected (NotDetected) Parainfluenza 4 (PCR) Not Detected (NotDetected) RSV (PCR) Not Detected (NotDetected) Entero/Rhino (PCR) Not Detected (NotDetected) Administered Medications Vancomycin HCl 2,750 mg/ (Sodium Chloride) 555 mls @ 200 mls/hr IV NOW ONE Stop: 09/07/24 03:19 Last Admin: 09/07/24 01:27 Dose: 200 mls/hr Documented By: CESAR Discontinued Medications Fluconazole (Fluconazole 100 Mg Tab) 100 mg PO NOW STA Stop: 09/07/24 00:51 Last Admin: 09/07/24 01:26 Dose: 100 mg Documented By: CESAR Imaging Data Radiologist's Impression: Chest X-Ray 09/06/24 21:54 Exam(s): XR CXR 1 VIEW EXAM: XR Chest, 1 View CLINICAL HISTORY: Reason for exam: fatigue. TECHNIQUE: Frontal view of the chest. COMPARISON: 08/27/2024. FINDINGS: There is a poor inspiratory effort. Lungs: There are linear densities at the left lung base.. No consolidation. Pleural space: No pleural effusion is seen. No pneumothorax. Heart: The heart is normal in size.. Mediastinum: There is mild uncoiling of thoracic aorta.. . IMPRESSION: There is some mild scarring or atelectasis at the left lung base. Electronically signed by: Bravo Schaeffer MD 09/06/24 23:20 PM Venous Doppler Study 09/06/24 22:37 EXAM: US venous doppler LE RT CLINICAL HISTORY: DVT TECHNIQUE: Ultrasound examination of the right lower extremity veins was performed in real time and duplex. One or more of the following were performed- spectral analysis, resistive index, waveform analysis, and pulsed Doppler. Limited exam by increased body habitus. COMPARISON: None. FINDINGS: Limited study due to increased body habitus. Normal spontaneous flow is noted in right common femoral, superficial femoral, and popliteal veins. Visualized veins of right lower extremity demonstrate normal compressibility. No sonographic evidence of acute deep vein thrombosis (DVT) is detected in the visualized veins of lower extremity. Preserved color-flow is noted in the right posterior tibial, anterior tibial, and peroneal veins. Preserved augmentation is noted in the right common femoral vein. Additional Findings: Subcutaneous and soft tissue edema is noted in the Calf area and at the Popliteal fossa. IMPRESSION: 1. No sonographic evidence of acute DVT detected at the time of examination. 2. Subcutaneous edema is noted in the Calf and in the popliteal fossa. Clinical correlation is advised. Disclaimer: DVT could be missed early in the disease when clot burden is minimal. For patients with moderate and high pretest probability of DVT and negative ultrasound, the [employer] clinical guidelines recommend testing with a D-dimer assay or repeat ultrasound in 5-7 days. If symptoms worsen, the Society of radiologists in ultrasound recommends repeating ultrasound even earlier. Electronically signed by Diaz Almonte 09-07-2024 01:10 AM Discharge Plan Visit Data Chief Complaint: Pain (Generalized) Stated Complaint: FEET AND HAND PAIN ED Provider: Roxanne Dumont Discharge Problem: Abdominal wall cellulitis, Leukocytosis, Cellulitis of groin, right Forms Stand Alone Forms: [facility] [employer] Prescriptions Prescriptions: No Action cholecalciferol (vitamin D3) 1,250 mcg (50,000 unit) capsule 1,250 mcg PO .FRIDAYS ondansetron 4 mg tablet,disintegrating 4 mg PO Q8H PRN (Reason: Nausea And Vomiting) itraconazole 100 mg capsule 100 mg PO WK Rx Instructions: must administer with a meal/food wednesday glipizide 10 mg tablet 10 mg PO QAM cyclobenzaprine 10 mg tablet 10 mg PO BID buspirone 30 mg tablet 30 mg PO BID propranolol 40 mg tablet 40 mg PO QAM trazodone 100 mg tablet 200 mg PO HS tizanidine 4 mg Tablet 4 mg PO Q8H PRN (Reason: MUSCLE SPASMS) Patient Comments: NEEDED AND ROUTINE TAKE ONE AT NIGHT Rx Instructions: routinely takes 1 tablet at night metformin 1,000 mg Tablet 1,000 mg PO BID escitalopram oxalate 20 mg Tablet 20 mg PO HS Hold Instructions: Resume on 05/18/23. gabapentin 300 mg Tablet Extended Release 24 Hr 300 mg PO BID cyanocobalamin (vitamin B-12) 1,000 mcg/mL Kit 1,000 mcg IM MONTHLY lorazepam [Ativan] 0.5 mg Tablet 0.5 mg PO BID PRN (Reason: Anxiety) hydroxyzine pamoate 25 mg Capsule 25 - 50 mg PO QID PRN (Reason: Itching) pirnzuhbgo-sokrrzsqwfsli-fsxa [Fioricet] 50-300-40 mg capsule 1 cap PO ONCE PRN (Reason: MIGRAINES) hydrochlorothiazide 25 mg tablet 25 mg PO QAM pantoprazole 20 mg tablet,delayed release (DR/EC) 20 mg PO BID clopidogrel 75 mg tablet 75 mg PO QPM aspirin [Aspirin Low-Strength] 81 mg Tablet,Delayed Release (Dr/Ec) 81 mg PO QPM trazodone 50 mg Tablet 50 mg PO HS Rx Instructions: take with 200mg rosuvastatin 20 mg tablet 20 mg PO HS Mounjaro 12.5 mg/0.5 mL pen injector 12.5 mg SUBCUT WK Rx Instructions: saturdays furosemide 40 mg tablet 40 mg PO QAM spironolactone 25 mg tablet 12.5 mg PO QAM potassium chloride 20 mEq tablet extended release 20 meq PO BID clotrimazole-betamethasone 1-0.05 % cream 1 applic TOPICAL DAILY Rx Instructions: abdominal folds Referrals Referrals: Tiny Hager DO [Primary Care Provider] - Discharge Problem: Leukocytosis Qualifiers: Leukocytosis type: unspecified Qualified Code(s): D72.829 - Elevated white blood cell count, unspecified
--- NOTE | 2024-09-07 01:10 | Ultrasound Report ---
EXAM: US venous doppler LE RT CLINICAL HISTORY: DVT TECHNIQUE: Ultrasound examination of the right lower extremity veins was performed in real time and duplex. One or more of the following were performed- spectral analysis, resistive index, waveform analysis, and pulsed Doppler. Limited exam by increased body habitus. COMPARISON: None. FINDINGS: Limited study due to increased body habitus. Normal spontaneous flow is noted in right common femoral, superficial femoral, and popliteal veins. Visualized veins of right lower extremity demonstrate normal compressibility. No sonographic evidence of acute deep vein thrombosis (DVT) is detected in the visualized veins of lower extremity. Preserved color-flow is noted in the right posterior tibial, anterior tibial, and peroneal veins. Preserved augmentation is noted in the right common femoral vein. Additional Findings: Subcutaneous and soft tissue edema is noted in the Calf area and at the Popliteal fossa. IMPRESSION: 1. No sonographic evidence of acute DVT detected at the time of examination. 2. Subcutaneous edema is noted in the Calf and in the popliteal fossa. Clinical correlation is advised. Disclaimer: DVT could be missed early in the disease when clot burden is minimal. For patients with moderate and high pretest probability of DVT and negative ultrasound, the [employer] clinical guidelines recommend testing with a D-dimer assay or repeat ultrasound in 5-7 days. If symptoms worsen, the Society of radiologists in ultrasound recommends repeating ultrasound even earlier. Electronically signed by Diaz Almonte 09-07-2024 01:10 AM
[2024-09-07] MEDS: FLUCONAZOLE 100 MG TAB PO STA (01:26)
[2024-09-07] MEDS: VANCOMYCIN HCL 2,750 MG in SODIUM CHLORIDE 0.9% 500 ML IV ONE (01:27)
--- NOTE | 2024-09-07 01:51 | History & Physical Report ---
Date of Service September 07, 2024 Assessment & Plan (1) Cellulitis of groin, right: (2) Poorly controlled type 2 diabetes mellitus: (3) Hypertension: (4) Ming's disease: (5) GERD (gastroesophageal reflux disease): (6) Sleep apnea: Plan 64-year-old female with diabetes, hypertension presenting with worsening right groin infection. Patient with history of chronic intertriginous infection for which she takes itraconazole as well as clotrimazole topical. She has noted significant worsening over the last 2 days. Also with chills. #Cellulitis right groinlikely fungal in nature, possibly bacterial as well Observation to MedSurg Fluconazole 200 mg p.o. daily nystatin cream and powder twice daily Wound care twice daily continue vancomycin for now #Diabetes Hold oral medications Lantus 7 units twice daily Insulin sliding scale Continue gabapentin 300 mg p.o. twice daily #Hypertension Continue spironolactone hold hydrochlorothiazide and Lasix for now Continue propranolol Continue to monitor #hyperlipidemia Continue Crestor #GERD Continue Protonix #Recent TAVR Continue aspirin, clopidogrel #EVELIA CPAP nightly History of Present Illness Chief Complaint: chills, right groin pain, yeast infection Primary Care Provider: Tiny Hager DO Ene Pompa is a 64-year-old female with history of hypertension, hyperlipidemia, diabetes, GERD, Ming's thyroiditis, fibromyalgia status post TAVR performed on 08/17/2024 presenting with several days of chills at home as well as increased right groin pain and worsening of a fungal skin infection. Patient has been using itraconazole 200 mg weekly as well as clotrimazolebetamethasone cream daily. However, her rash has been getting consistently worse. She has had increased redness and pain. Patient additionally has been complaining of some loose stools, nonbloody, nonmucoid. No additional complaints at this time In the ER she is afebrile, hemodynamically stable WBC count = 17.29 ER course: Vancomycin 2750 mg IV Fluconazole 100 mg p.o. Allergies Allergy/AdvReac Type Severity Reaction Status Date / Time cephalexin Allergy Severe hives Verified 08/18/23 08:03 clindamycin Allergy Severe Anaphylaxis Verified 08/18/23 08:03 Iodinated Contrast Media Allergy Severe "X-RAY DYE Verified 08/18/23 08:03 - body SWELLING" - FROM CT MYELOGRAM. Penicillins Allergy Severe HIVES AND Verified 08/18/23 08:03 N/V nickel Allergy Mild Rash Verified 08/18/23 08:03 zolpidem AdvReac Severe Sleep Walk Verified 08/18/23 08:03 aspirin AdvReac Intermediate upset Verified 08/18/23 08:03 stomach codeine AdvReac Intermediate HEADACHE Verified 08/18/23 08:03 sumatriptan AdvReac Intermediate Tachycardia Verified 08/18/23 08:03 cetirizine AdvReac Mild Drowsiness Verified 08/18/23 08:03 contact metal agent AdvReac Rash Verified 08/18/23 08:03 PAIN MEDS AdvReac Intermediate NAUSEA Uncoded 08/18/23 08:03 Cryselle-28 TABS AdvReac Unknown PT DOESNT' Uncoded 08/18/23 08:03 REMEMBER Excedrin TABS AdvReac Unknown Gastrointestinal Uncoded 08/18/23 08:03 Upset Home Medications Medication Instructions Recorded Confirmed Type cyanocobalamin (vitamin B-12) 1,000 mcg IM MONTHLY 03/15/18 09/07/24 History 1,000 mcg/mL injection kit escitalopram oxalate 20 mg tablet 20 mg PO HS 03/15/18 09/07/24 History gabapentin 300 mg tablet,extended 300 mg PO BID 03/15/18 09/07/24 History release 24 hr metformin 1,000 mg tablet 1,000 mg PO BID 03/15/18 09/07/24 History tizanidine 4 mg tablet 4 mg PO Q8H PRN MUSCLE SPASMS 03/15/18 09/07/24 History buspirone 30 mg tablet 30 mg PO BID 05/23/19 09/07/24 History cyclobenzaprine 10 mg tablet 10 mg PO BID 05/23/19 09/07/24 History propranolol 40 mg tablet 40 mg PO QAM 05/23/19 09/07/24 History trazodone 100 mg tablet 200 mg PO HS 05/23/19 09/07/24 History glipizide 10 mg tablet 10 mg PO QAM 05/24/19 09/07/24 History lorazepam 0.5 mg tablet (Ativan) 0.5 mg PO BID PRN Anxiety 04/24/22 09/07/24 History hydroxyzine pamoate 25 mg capsule 25 - 50 mg PO QID PRN Itching 10/28/22 09/07/24 History [id number]-[id number] 1 cap PO ONCE PRN MIGRAINES 04/16/23 09/07/24 History 50 mg-300 mg-40 mg capsule (Fioricet) cholecalciferol (vitamin D3) 1,250 1,250 mcg PO .Fridays04/16/23 09/07/24 History mcg (50,000 unit) capsule ondansetron 4 mg disintegrating 4 mg PO Q8H PRN Nausea And Vomiting 04/16/23 09/07/24 History tablet itraconazole 100 mg capsule 100 mg PO WK 06/07/23 09/07/24 History aspirin 81 mg tablet,delayed 81 mg PO QPM 09/07/24 09/07/24 History release clopidogrel 75 mg tablet 75 mg PO QPM 09/07/24 09/07/24 History clotrimazole-betamethasone 1 1 applic topical DAILY 09/07/24 09/07/24 History %-0.05 % topical cream furosemide 40 mg tablet 40 mg PO QAM 09/07/24 09/07/24 History hydrochlorothiazide 25 mg tablet 25 mg PO QAM 09/07/24 09/07/24 History pantoprazole 20 mg tablet,delayed 20 mg PO BID 09/07/24 09/07/24 History release potassium chloride 20 mEq 20 meq PO BID 09/07/24 09/07/24 History tablet,extended release rosuvastatin 20 mg tablet 20 mg PO HS 09/07/24 09/07/24 History spironolactone 25 mg tablet 12.5 mg PO QAM 09/07/24 09/07/24 History tirzepatide 12.5 mg/0.5 mL 12.5 mg subcut WK 09/07/24 09/07/24 History subcutaneous pen injector (Mounjaro) trazodone 50 mg tablet 50 mg PO HS 09/07/24 09/07/24 History Past Med/Surg History Problem List Cellulitis of groin, right (Acute) Leukocytosis (Acute) Abdominal wall cellulitis (Acute) Chills (Acute) Chest pressure (Acute) Thyroid nodule (Acute) Acute neck pain (Acute) Stage III pressure ulcer Open wound of breast (Acute) Migraine headache with aura Hypokalemia (Acute) Leukocytosis (Acute) Weakness (Acute) Cellulitis Allergy to multiple antibiotics Poorly controlled type 2 diabetes mellitus (Acute) Candidiasis, intertrigo (Chronic) Open wound of groin with complication (Acute) Lower extremity edema (Chronic) Open wound of both legs with complication (Acute) Abnormal ankle brachial index (FARHANA) (Acute) Obesity, morbid, BMI 50 or higher (Chronic) Abdominal pannus Encounter for pre-operative examination Chronic migraine without aura Myalgia and myositis (Acute) Sleep disorder (Acute) Spinal stenosis (Acute) Vitamin D deficiency (Acute) Lumbar disc disease with radiculopathy Neck pain (Acute) DJD (degenerative joint disease) (Chronic) Hypertension (Chronic) Ming's disease (Chronic) Chronic neck pain (Chronic) Migraine (Chronic) Anxiety (Chronic) Depression (Chronic) Chronic back pain (Chronic) Alba's palsy (Chronic) Hyperlipidemia (Chronic) GERD (gastroesophageal reflux disease) (Chronic) Anemia (Chronic) Diabetes (Chronic) H/O Sjogren's disease (Chronic) Anemia (Chronic) Head trauma (Acute) Pneumonia (Chronic) Bronchitis (Chronic) Asthma (Chronic) Abrasion of right elbow (Acute) Concussion (Acute) Head trauma (Acute) Sleep apnea cpap with 4 liters of oxygen Lumbar radiculopathy Medical History Anxiety and depression Visit for wound care 04/16/23>follows with [place] [facility] (biopsy of left leg and abdomen>see results) to follow up with infectious disease 04/27/23 ---has yeast infection in the folds of skin on abdomen Morbid obesity with BMI of 50.0-59.9, adult 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 IN ED NO SLURRED SPEECH NOTED. EVALUSTION DONE - RESULTS PER ED VISIT - R/T ALBA'S PALSY - MEDROL DOSE PACK GIVEN AND D/C TO HOME HX BELLS PALSY X2 Osteoarthritis Fibromyalgia Ming's thyroiditis DJD (degenerative joint disease) Chronic neck and back pain GERD (gastroesophageal reflux disease) Diabetes mellitus, type 2 Sjogren's syndrome Anemia Migraine Hyperlipidemia Hypertension Surgical History Family history of reaction to anesthesia both parents N/V S/P epidural steroid injection Nausea and vomiting after administration of anesthetic agent prior surgeries at [place] has been pretreated and done well without n/v. History of dilatation and curettage History of carpal tunnel release bilt Status post cervical spinal fusion x2--c4-5, c5-6 normal ROM History of arthroscopy of left knee History of colonoscopy History of esophagogastroduodenoscopy (EGD) History of gastric bypass gastric sleeve 2010 @ [facility] History of tooth extraction wisdom teeth Family History Father Family history of reaction to anesthesia nauseated Family history of diabetes mellitus Social History Smoking Status: Never smoker Second Hand Exposure: No; Do You Dip or Chew Tobacco: No; Hx Alcohol Use: No Hx Substance Use: No Preferred Language: Martiniquais Communication Ability: Effective Visual Impairment: Limited Hearing Ability: Hard of Hearing [employer] Work[employer] Required: No Beliefs That Will Affect Care: None marital status: Current Living Situation: Spouse Current Living Situation Comment: And daughter Feels Safe at Home: Yes Diet: regular Assistive Devices: Cane, CPAP, Walker and Wheelchair Review of Systems Review of Systems: All systems reviewed & are unremarkable except as noted in HPI & below Physical Exam Physical Exam: General: patient resting comfortably, NAD, non-toxic in appearance, AA&O x 4 Skin: Rash in groin bilaterally, well-demarcated, erythematous with satellite lesions, very tender to palpation, no crepitus/bullae, warm to touch HEENT: NC/AT, PERRL, EOMI, anicteric sclera, conjunctiva without injection, external ear normal to inspection and nontender, nares patent, moist mucus membranes, dentition intact, no oropharyngeal lesions, neck supple, trachea midline, no LAD, no thyromegaly, no JVD Heart: +S1/S2, regular, no m/r/g Lungs: equal air entry bilaterally, no rales/rhonchi/wheezes Abd: +BS, soft, NT/ND, no masses/organomegaly/ascites Ext: 2+ edema Neuro: nonfocal, patient AA&O x 4, speech intact, no facial droop, moving all extremities on command with equal strength 5/5 Results & Data Results & Data Vital Signs (Past 12 Hours) Vital Signs Temp Pulse Pulse Resp BP BP Pulse Ox 09/06/24 23:00 87 20 149/92 H 93 09/06/24 21:12 98 H 20 141/79 H 98 09/06/24 21:08 36.4 C L 76 18 154/93 H 96 O2 Del Method 09/06/24 23:00 Room Air 09/06/24 21:12 Room Air 09/06/24 21:08 Room Air Laboratory Results Laboratory Results WBC 17.29 K/ul (4.8-10.8) H 09/06/24 21:35 RBC 5.16 M/uL (4.20-5.40) 09/06/24 21:35 Hgb 13.8 g/dl (12.0-16.0) 09/06/24 21:35 Hct 43.3 % (37.0-47.0) 09/06/24 21:35 MCV 83.9 fL (80.0-100.0) 09/06/24 21:35 MCH 26.7 pg (25.0-34.0) 09/06/24 21:35 MCHC 31.9 g/dL (32.0-36.0) L 09/06/24 21:35 RDW Std Deviation 41.4 fL (36.4-46.3) 09/06/24 21:35 RDW Coeff of [place] 13.6 % (11.5-14.5) 09/06/24 21:35 Plt Count 256 K/uL (130-400) 09/06/24 21:35 MPV 10.1 fL (9.4-12.4) 09/06/24 21:35 Immature Gran % (Auto) 0.3 % 09/06/24 21:35 Neut % (Auto) 77.4 % 09/06/24 21:35 Lymph % (Auto) 14.8 % 09/06/24 21:35 [place] % (Auto) 5.7 % 09/06/24 21:35 Eos % (Auto) 1.2 % 09/06/24 21:35 Baso % (Auto) 0.6 % 09/06/24 21:35 Neut # (Auto) 13.38 K/uL (1.40-6.50) H 09/06/24 21:35 Lymph # (Auto) 2.56 K/uL (1.20-3.40) 09/06/24 21:35 [place] # (Auto) 0.98 K/uL (0.11-0.59) H 09/06/24 21:35 Eos # (Auto) 0.20 K/uL (0.00-0.50) 09/06/24 21:35 Baso # (Auto) 0.11 K/uL (0.00-0.20) 09/06/24 21:35 Immature Gran # (Auto) 0.06 K/uL (0.01-0.20) 09/06/24 21:35 Sodium 139 mmol/L (136-145) 09/06/24 21:35 Potassium 3.6 mmol/L (3.5-5.1) 09/06/24 21:35 Chloride 98 mmol/L (98-107) 09/06/24 21:35 Carbon Dioxide 34 mmol/L (21-32) H 09/06/24 21:35 Anion Gap 7 (3-11) 09/06/24 21:35 BUN 10 mg/dl (6-23) 09/06/24 21:35 Creatinine 0.64 mg/dl (0.6-1.2) 09/06/24 21:35 Est Cr Clr Drug Dosing Not Reportable 09/06/24 21:35 eGFR 99.24 09/06/24 21:35 BUN/Creatinine Ratio 15.6 (10-20) 09/06/24 21:35 Glucose 188 mg/dl (70-99(Fasting)) H 09/06/24 21:35 Lactate 1.5 mmol/L (0.4-2.0) 09/07/24 01:24 Calcium 9.4 mg/dl (8.6-10.3) 09/06/24 21:35 Total Bilirubin 0.4 mg/dl (0.2-1.0) 09/06/24 21:35 AST 13 U/L (13-39) 09/06/24 21:35 ALT 9 U/L (7-52) 09/06/24 21:35 Alkaline Phosphatase 65 U/L (34-104) 09/06/24 21:35 Troponin I High Sens < 2.3 pg/ml (0-14) 09/06/24 21:35 Total Protein 7.9 gm/dl (6.0-8.3) 09/06/24 21:35 Albumin 4.3 gm/dl (3.4-5.0) 09/06/24 21:35 Globulin 3.6 gm/dl (2.5-4.0) 09/06/24 21:35 Albumin/Globulin Ratio 1.2 (0.9-2) 09/06/24 21:35 Lipase 25 U/L (11-82) 09/06/24 21:35 Adenovirus (PCR) Not Detected (NotDetected) 09/06/24 22:00 B. pertussis DNA (PCR) Not Detected (NotDetected) 09/06/24 22:00 B.parapertussis DNA PCR Not Detected (NotDetected) 09/06/24 22:00 C. pneumoniae DNA (PCR) Not Detected (NotDetected) 09/06/24 22:00 Coronavirus OC43 (PCR) Not Detected (NotDetected) 09/06/24 22:00 Coronavirus HKU1 (PCR) Not Detected (NotDetected) 09/06/24 22:00 Coronavirus 229E (PCR) Not Detected (NotDetected) 09/06/24 22:00 SARS-CoV-2 (PCR) Not Detected (NotDetected) 09/06/24 22:00 Coronavirus NL63 (PCR) Not Detected (NotDetected) 09/06/24 22:00 Human Metapneumovir PCR Not Detected (NotDetected) 09/06/24 22:00 Influenza Type A (PCR) Not Detected (NotDetected) 09/06/24 22:00 Influenza Type B (PCR) Not Detected (NotDetected) 09/06/24 22:00 M. pneumoniae (PCR) Not Detected (NotDetected) 09/06/24 22:00 Parainfluenza 1 (PCR) Not Detected (NotDetected) 09/06/24 22:00 Parainfluenza 2 (PCR) Not Detected (NotDetected) 09/06/24 22:00 Parainfluenza 3 (PCR) Not Detected (NotDetected) 09/06/24 22:00 Parainfluenza 4 (PCR) Not Detected (NotDetected) 09/06/24 22:00 RSV (PCR) Not Detected (NotDetected) 09/06/24 22:00 Entero/Rhino (PCR) Not Detected (NotDetected) 09/06/24 22:00 Impressions Chest X-Ray 09/06/24 21:54 Exam(s): XR CXR 1 VIEW EXAM: XR Chest, 1 View CLINICAL HISTORY: Reason for exam: fatigue. TECHNIQUE: Frontal view of the chest. COMPARISON: 08/27/2024. FINDINGS: There is a poor inspiratory effort. Lungs: There are linear densities at the left lung base.. No consolidation. Pleural space: No pleural effusion is seen. No pneumothorax. Heart: The heart is normal in size.. Mediastinum: There is mild uncoiling of thoracic aorta.. . IMPRESSION: There is some mild scarring or atelectasis at the left lung base. Electronically signed by: Bravo Schaeffer MD 09/06/24 23:20 PM Venous Doppler Study 09/06/24 22:37 EXAM: US venous doppler LE RT CLINICAL HISTORY: DVT TECHNIQUE: Ultrasound examination of the right lower extremity veins was performed in real time and duplex. One or more of the following were performed- spectral analysis, resistive index, waveform analysis, and pulsed Doppler. Limited exam by increased body habitus. COMPARISON: None. FINDINGS: Limited study due to increased body habitus. Normal spontaneous flow is noted in right common femoral, superficial femoral, and popliteal veins. Visualized veins of right lower extremity demonstrate normal compressibility. No sonographic evidence of acute deep vein thrombosis (DVT) is detected in the visualized veins of lower extremity. Preserved color-flow is noted in the right posterior tibial, anterior tibial, and peroneal veins. Preserved augmentation is noted in the right common femoral vein. Additional Findings: Subcutaneous and soft tissue edema is noted in the Calf area and at the Popliteal fossa. IMPRESSION: 1. No sonographic evidence of acute DVT detected at the time of examination. 2. Subcutaneous edema is noted in the Calf and in the popliteal fossa. Clinical correlation is advised. Disclaimer: DVT could be missed early in the disease when clot burden is minimal. For patients with moderate and high pretest probability of DVT and negative ultrasound, the [employer] clinical guidelines recommend testing with a D-dimer assay or repeat ultrasound in 5-7 days. If symptoms worsen, the Society of radiologists in ultrasound recommends repeating ultrasound even earlier. Electronically signed by Diaz Almonte 09-07-2024 01:10 AM PG Care Time/CCT Total # of Minutes Spent Total Time Spent with Patient: Total time spent is greater than 50% in coordination of care (as documented) at patient's floor/unit and/or counseling patient: Coding Level of Care Code 05668 INT INP/OBS CARE 3/75MIN Diagnoses Cellulitis of groin, right L03.314 Poorly controlled type 2 diabetes mellitus E11.65 Hypertension I10 Ming's disease E06.3 GERD (gastroesophageal reflux disease) K21.9 Sleep apnea G47.30
[2024-09-07] MEDS ORDERED: ONDANSETRON INJ 2 MG/ML 2 ML VIAL IV PRN (03:28)
[2024-09-07] MEDS ORDERED: GLUCAGON FOR INJ 1 MG VIAL SQ PRN (03:28)
[2024-09-07] MEDS ORDERED: VANCOMYCIN HCL 1,000 MG/270 ML BAG IV SCH (03:28)
[2024-09-07] MEDS ORDERED: DEXTROSE 50% 50 ML SYRINGE IV PRN (03:28)
[2024-09-07] MEDS ORDERED: GLUCOSE 40% GEL 15 GM TUBE PO PRN (03:28)
[2024-09-07] MEDS ORDERED: LORazepam 0.5 MG TAB PO PRN (03:28)
[2024-09-07] MEDS ORDERED: GLUCOSE 10 TAB/TUBE PO PRN (03:28)
[2024-09-07] MEDS ORDERED: CARBOHYDRATES FOR HYPOGLYCEMIA PO PRN (03:28)
--- OUTSIDE RECORDS SUMMARY | 2024-09-07 03:38 | External Medical Summary | Continuity of Care Document ---
Author Name Unknown Organization [facility] [address] [place] [address] HELEN MAHAN [phone] Care Team Providers Care Vp Research Name Role Phone Tiny Hager Primary Care Physician [phone] [id number] Date(s): 08/28/24 - 08/28/24 [facility] [address] [facility] - [place] [place] [address], [address], [address] [place] Neff [address] [phone] Encounter Diagnosis Visit for wound check(Discharge Diagnosis) - 08/28/24 Severe aortic stenosis(Discharge Diagnosis) - 08/28/24 (HFpEF) heart failure with preserved ejection fraction(Discharge Diagnosis) - 08/28/24 Discharge Disposition: Home or Self Care Attending Physician: CAILIN Boo Mayeen R Referring Physician: MD Denise Mark Encounter Type: [facility] [place] Allergies, Adverse Reactions, Alerts Substance Criticality Severity Reaction Reaction Severity Status codeine Nausea headache Active clindamycin redness of eyes and tongue Active penicillins 1, 2, 3 i Itching Hives rash, GI upset Active narcotic analgesics nausea Active Excedrin Migraine upset stomach Active Keflex Vomiting Active Ambien sleep walks Active IVP dye Swelling Active Allergy Not found in Search environmental allergies Active Unable to Obtain Allergy 4 headache, nausea Active Nickel Rash Active tree nuts Migraines Active Cryselle 28 chronic headache A ctive 1Stars she in not allergic to PCN 2states she is allergic to PCN 3staes she is allergic to PCN 4Allergic to: Oils, aged cheese, chocolate, all pain meds Assessment and Plan Extracted from: Title:s/p transcarotid TAVR Author:CAILIN Boo Mayeen R Date:08/28/24 1. Visit for wound check - left neck incision appears to be healing nicely without any signs of infection. there are no bruising or bleeding. there is minimal swelling palpated on top aspect of incision. - emphasized importance of daily incision care with plain soap and water, then pat dry. no lotion, ointment, powder. avoid submerging wound underwater - counseled to contact our office for any increasing swelling, new lump, pain, wound drainage or dehiscence - follow-up as needed 2. 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 3. (HFpEF) heart failure with preserved ejection fraction - status: chronic, - NYHA Functional Class:I - appears well compensated on exam. reports stable home wts. - on propranolol , Entresto, spironolactone, and Lasix - Guideline-directed medical therapy (GDMT) is proven to reduce morbidity and mortality in people with heart failure with reduced ejection fraction. Medication dosing adjustments, addition of pharmacologic agents and/or other therapies are deferred to cardiology. - HF teaching reinforced: * keep a log of daily weights, BP and pulse rate. Bring log at every doctor's appointment. * call HF clinic or cardiologists for fluid overload signs ans symptoms such as 3 lbs of wt gain over 2 consecutive days or 5 lbs over a week, new or increasing shortness of breath, new or increasing leg or abdominal swelling,needing to elevate head of bed at night for ease of breathing. * keep fluid intake at 64 ounces per day unless otherwise directed by cardiology, limit salt intake <2gm per day ( read labels, avoid fast food, salt shaker, processed food, or canned goods) - rest of follow-up with primary cardiology or HF provider. It has been a pleasure seeing Ms. Horner at our cardiac surgery clinic today. All of her questions and concerns were addressed during this visit. Thank you for allowing us to participate in her care. Please do not hesitate to contact us if you have any questions or concerns. CAILIN Jordan, [facility] Cardiac Surgery Department [facility] [place] Disclaimer: This documentation was prepared utilizing YEVVO speech recognition software. No method of documentation is perfect. Grammatical errors, random word insertions, pronoun errors such as substituting "she" instead of "he," "her" instead of "our", and incomplete sentences are occasional consequences of the system due to software limitations, ambient noise, and hardware issues. I attempt to catch and correct these errors in the course of the documentation but am not always able to capture every error. Any questions or concerns about the content text or information contained within the body of this documentation should be directly addressed to me for clarification. If you have any questions or concerns please do not hesitate to contact me through [employer] or via our office at [phone] Confidentiality Statement: Please notify us immediately if you received this communication in error.This letter contains information from [facility] and may be confidential and/or privileged. The information is intended only for the use of the individual or entity named on this letter. If you are not the intended recipient, you are hereby notified that any disclosure, copying, distribution, or the taking of any action in reliance on the contents of this information is strictly prohibited. Thank you. Immunizations Given and Recorded Vaccine Date Status Refusal Reason pneumococcal 20-valent conjugate vaccine 1 08/30/24 Given SARS-CoV-2 (COVID-19) mRNA-vacc - [id number] 04/05/23 Recorded influenza virus vaccine, inactivated 03/08/23 Give n influenza virus vaccine, inactivated 2 01/28/22 Gi [...] Give n SARS-CoV-2 mRNA (Pfizer 12+) bivalent 4 09/24/22 G iven SARS-CoV-2 (COVID-19) mRNA BNT-162b2 vax 03/19/21 Given tetanus/diphtheria/pertuss, acel (Tdap) 7/25/16 G iven tetanus/diphtheria/pertuss, acel (Tdap) 09/21/05 R ecorded measles/mumps/rubella virus vaccine 5 10/24/14 Giv en pneumococcal 23-valent vaccine 06/21/98 Recorded 1Result Comment: [facility]i [facility] 2Result Comment: dmitriy fiore cma 3Early/Late Reason: Other : busy 4Early/Late Reason: Early/Late Reason: Clinic schedule 5Result Comment: Diluent [id number] 11/13/16 Medications acetaminophen/butalbital/caffeine 325 mg-50 mg-40 mg oral tablet Start: 07/07/24 3:24:00 PM EST, See Instructions, Disp# 30 tab, Refills: 2, TAKE 1 TABLET BY MOUTH EVERY 6 HOURS NEEDED FOR HEADACHE, Pharmacy: [facility] Start Date: 07/07/24 Status: Ordered Quantity: 30.0 Unit: tab Repeat number: 3 aspirin 81 mg oral delayed release tablet Start: 01/28/24 2:13:00 PM EDT, 1 tab, PO, Daily, Disp# 30 tab, Refills: 11, Pharmacy: [facility] Start Date: 01/28/24 Status: Ordered Quantity: 30.0 Unit: tab Repeat number: 12 betamethasone-clotrimazole 0.05%-1% topical cream Start: 12/22/23 12:43:00 PM EDT, See Instructions, Disp# 45 g, Refills: 11, APPLY TOPICALLY TO AFFECTED AREA DAILY, Pharmacy: [place] [id number] Start Date: 12/22/23 Status: Ordered Quantity: 45.0 Unit: g Repeat number: 12 Indications: Erythema intertrigo; busPIRone 30 mg oral tablet Start: 01/26/24 12:58:00 PM EDT, 1 tab, PO, bid, Disp# 60 tab, Refills: 6, Pharmacy: [facility] [address] Start Date: 01/26/24 Status: Ordered Quantity: 60.0 Unit: tab Repeat number: 7 clopidogrel 75 mg oral tablet Start: 08/19/24 10:26:00 AM EDT, 1 tab, PO, Daily, Disp# 30 tab, Refills: 5, Pharmacy: [facility] Start Date: 08/19/24 Status: Ordered Quantity: 30.0 Unit: tab Repeat number: 6 cyclobenzaprine 10 mg oral tablet Start: 08/04/24 1:22:00 PM EDT, 1 tab, PO, tid, Disp# 270 tab, Refills: 0, Pharmacy: [place] [id number] Start Date: 08/04/24 Status: Ordered Quantity: 270.0 Unit: tab Repeat number: 1 Entresto 24 mg-26 mg oral tablet Start: 08/23/24 1:59:00 PM EDT, 1 tab, PO, bid, Disp# 180 tab, Refills: 3, Pharmacy: [facility] Start Date: 08/23/24 Status: Ordered Quantity: 180.0 Unit: tab Repeat number: 4 escitalopram 20 mg oral tablet Start: 01/25/24 3:16:00 PM EDT, 1 tab, PO, Daily, Disp# 90 tab, Refills: 2, Pharmacy: [place] [id number] Start Date: 01/25/24 Status: Ordered Quantity: 90.0 Unit: tab Repeat number: 1 gabapentin 300 mg oral capsule Start: 06/02/24 8:40:00 AM EST, 1 cap, PO, bid, Disp# 180 cap, Refills: 0, Pharmacy: [place] [id number] Start Date: 06/02/24 Status: Ordered Quantity: 180.0 Unit: cap Repeat number: 1 hydrOXYzine hydrochloride 25 mg oral tablet Start: 07/27/24 10:37:00 AM EDT, 2 tab, PO, qid, Disp# 100 tab, Refills: 0, PRN: NEEDED FOR ITCHING, Pharmacy: [place] [address] Start Date: 07/27/24 Status: Ordered Quantity: 100.0 Unit: tab Repeat number: 1 Imitrex 100 mg oral tablet Start: 05/20/23 11:57:00 AM EST, 1 tab, PO, ONCE, Disp# 10 tab, PRN: as needed for migraine headache,Pharmacy: [place] [address] Start Date: 05/20/23 Status: Ordered Quantity: 10.0 Unit: tab Repeat number: 1 itraconazole 100 mg oral capsule 2 cap, PO, q7days, TAKE 2 CAPSULES BY MOUTH ONCE A WEEK Start Date: 06/26/24 Status: Ordered Repeat number: 1 lactulose 10 g/15 mL oral syrup Start: 04/05/23 4:53:00 PM EST, 15 mL, PO, Daily, Disp# 240 mL, Refills: 3, PRN: as needed for constipation, Pharmacy: [place] [id number] Start Date: 04/05/23 Status: Ordered Quantity: 240.0 Unit: mL Repeat number: 4 lancets Start: 08/13/21 2:58:00 PM EDT, See Instructions, Disp# 1 kit, Refills: 0, check BSG once daily, Pharmacy: [place] [address] Start Date: 08/13/21 Status: Ordered Quantity: 1.0 Unit: kit Repeat number: 1 Indications: Type 2 diabetes mellitus with diabetic nephropathy; Lasix 40 mg oral tablet Start: 08/19/24 10:27:00 AM EDT, 1 tab, PO, Daily, Disp# 30 tab, Pharmacy: [facility] [place] Start Date: 08/19/24 Stop Date: 09/18/24 Status: Ordered Quantity: 30.0 Unit: tab Repeat number: 1 LORazepam 0.5 mg oral tablet Start: 01/26/24 12:58:00 PM EDT, 1 tab, PO, Daily, Disp# 30 tab, Refills: 1, prn, PRN: as needed foranxiety, Pharmacy: [place] [id number] Start Date: 01/26/24 Status: Ordered Quantity: 30.0 Unit: tab Repeat number: 2 Indications: Anxiety disorder, unspecified; metFORMIN 1000 mg oral tablet Start: 08/04/24 1:22:00 PM EDT, 1 tab, PO, bid, Disp# 180 tab, Refills: 0, Hold for TAVR, Pharmacy: [place] [address] Start Date: 08/04/24 Status: Ordered Quantity: 180.0 Unit: tab Repeat number: 1 Mounjaro 10 mg/0.5 mL subcutaneous solution Start: 08/30/24 12:00:00 PM EDT, 10 mg =, subQ, q7days, Disp# 2 mL, Refills: 2, tirzepatide, Pharmacy: [place] [address] Start Date: 08/30/24 Status: Ordered Quantity: 2.0 Unit: mL Repeat number: 3 Mounjaro 12.5 mg/0.5 mL subcutaneous solution Start: 06/06/24 2:10:00 PM EST, 1 syringe, subQ, q7days, Disp# 4 mL, Refills: 0, Pharmacy: [place] [address] Start Date: 06/06/24 Status: Ordered Quantity: 4.0 Unit: mL Repeat number: 1 Porter 12.5 mg/0.5 mL subcutaneous solution Start: 08/30/24 12:01:00 PM EDT, 12.5 mg =, subQ, q7days, Disp# 2 mL, Refills: 2, tirzepatide, Pharmacy: [place] [address] Start Date: 08/30/24 Status: Ordered Quantity: 2.0 Unit: mL Repeat number: 3 One Touch Verio Glucose Monitor Start: 08/14/21 9:05:00 AM EDT, See Instructions, Disp# 1 kit, Refills: 0, Use to test BSG once daily, Note to Pharmacy: Dx: E11.9;, Pharmacy: [place] [address] Start Date: 08/14/21 Status: Ordered Quantity: 1.0 Unit: kit Repeat number: 1 One Touch Verio Test Strips Start: 08/12/21 4:00:00 PM EDT, See Instructions, Disp# 100 strip, Refills: 5, Pt to test sugars 1 time daily. E11.9, Pharmacy: [place] [address] Start Date: 08/12/21 Status: Ordered Quantity: 100.0 Unit: Repeat number: 6 potassium chloride 20 mEq oral tablet, extended release Start: 08/23/24 2:00:00 PM EDT, 1 tab, PO, bid, Disp# 180 tab, Refills: 3, Pharmacy: [place] [id number] Start Date: 08/23/24 Status: Ordered Quantity: 180.0 Unit: tab Repeat number: 4 propranolol 40 mg oral tablet Start: 08/04/24 1:22:00 PM EDT, 1 tab, PO, qAM, Disp# 90 tab, Refills: 0, Pharmacy: [place] [id number] Start Date: 08/04/24 Status: Ordered Quantity: 90.0 Unit: tab Repeat number: 1 Protonix 20 mg oral delayed release tablet Start: 03/22/24 10:37:00 AM EST, 1 tab, PO, Daily, Disp# 30 tab, Refills: 6, takes at night time, Pharmacy: [place] [id number] Start Date: 03/22/24 Stop Date: 10/18/24 Status: Ordered Quantity: 30.0 Unit: tab Repeat number: 7 Protonix 40 mg oral delayed release tablet Start: 01/28/24 2:12:00 PM EDT, 1 tab, PO, Daily, Disp# 30 tab, Refills: 5, Pharmacy: [facility] Start Date: 01/28/24 Status: Ordered Quantity: 30.0 Unit: tab Repeat number: 6 Protopic 0.1% topical ointment Start: 06/03/23 11:53:00 AM EST, 1 appl, topical, bid, Disp# 60 g, Refills: 2, to arms, legs, abdomen and upper back where itchy, Pharmacy: [facility] Start Date: 06/03/23 Status: Ordered Quantity: 60.0 Unit: g Repeat number: 3 Indications: Atopic dermatitis, unspecified; rosuvastatin 20 mg oral tablet Start: 01/31/24 5:41:00 PM EDT, 1 tab, PO, Daily, Disp# 90 tab, Refills: 3, Note to Pharmacy: discontinue simvastatin, Pharmacy: [place] [id number] Start Date: 01/31/24 Status: Ordered Quantity: 90.0 Unit: tab Repeat number: 4 spironolactone 25 mg oral tablet Start: 08/19/24 10:27:00 AM EDT, 0.5 tab, PO, Daily, Disp# 15 tab, Pharmacy: [facility] Start Date: 08/19/24 Stop Date: 09/18/24 Status: Ordered Quantity: 15.0 Unit: tab Repeat number: 1 tiZANidine 4 mg oral tablet Start: 08/04/24 1:22:00 PM EDT, 1 tab, PO, q8h, Disp# 90 tab, Refills: 0, Pharmacy: [facility] Start Date: 08/04/24 Status: Ordered Quantity: 90.0 Unit: tab Repeat number: 1 traZODone 100 mg oral tablet Start: 06/21/24 11:52:00 AM EST, 2 tab, PO, qhs, Disp# 180 tab, Refills: 3, Pharmacy: [facility] Start Date: 06/21/24 Stop Date: 06/16/25 Status: Ordered Quantity: 180.0 Unit: tab Repeat number: 4 Vitamin D3 1250 mcg (50,000 intl units) oral capsule Start: 08/01/24 3:22:00 PM EDT, 1 cap, PO, q7days, Disp# 12 cap, Refills: 0, Pharmacy: [facility] Start Date: 08/01/24 Status: Ordered Quantity: 12.0 Unit: cap Repeat number: 1 Zofran ODT 4 mg oral tablet, disintegrating Start: 02/24/23 3:12:00 PM EDT, 1 tab, PO, tid, Disp# 10 tab, Refills: 0, PRN: as needed for nausea/vomiting, Pharmacy: [id number] Start Date: 02/24/23 Status: Ordered Quantity: 10.0 Unit: tab Repeat number: 1 Mental Status 08/28/24 Barriers to Learning one year Vision imp airment, Other: glasses Mandatory Health Literacy Documentation Yes Health Literacy Communication Barriers U nable to assess Primary Language Citizen Of [place] Problem List Condition Confirmation Course Effective Dates Status H ealth Status Informant Anemia Confirmed Active Anxiety Confirmed Active Aortic stenosis Confirmed Active B12 deficiency Confirmed Active Basal cell carcinoma (BCC) Confirmed Active CAD in grindstone artery Confirmed Active Candidal intertrigo Confirmed Active Cough Confirmed Active Controlled diabetes mellitus with diabetic nephropathy Confirmed Active Uncontrolled diabetes mellitus with hyperglycemia Confirmed Active Diabetes Confirmed Active Abdominal apron Confirmed Active Fall at home Confirmed Active Low ferritin Confirmed Active (HFpEF) heart failure with preserved ejection fraction Confirmed Active Left hip pain Confirmed Active S/P TAVR (transcatheter aortic valve replacement) Confirmed Active Hyperlipidemia Confirmed Active Intertrigo Confirmed [...] failure Confirmed Active Pressure ulcer Confirmed Active Pressure sore Confirmed Active Itchy skin Confirmed Active Depression, major, recurrent, moderate Confirmed Active Sjogren's disease Confirmed Active Sleep disorder Confirmed Active Uncontrolled type 2 diabetes mellitus with hypoglycemia, without long-term current use of insulin Confirmed Active Vitamin D deficiency Confirmed Active 1BMI >40 Diagnosis Diagnosis Type Effective Dates Health Status Cl inical Service Informant Visit for wound check Discharge Diagnosis 08/28/24 Non-Specified Severe aortic stenosis Discharge Diagnosis 08/28/24 Non-Specified (HFpEF) heart failure with preserved ejection fraction Discharge Diagnosis 08/28/24 Non-Specified Procedures Procedure Date Related Diagnosis Body Site Status Thyroid 1 04/03/24 Completed Stent, x2 01/2024 Completed Shave biopsy and cauterization of skin 06/03/23 Completed Epidural steroid injection 2 12/19/20 Completed Mohs surgery 10/15/20 Completed Shave biopsy and cauterization of skin 09/12/20 Completed Plain X-ray of right hand 3 06/26/20 Completed Diabetic Eye examination 4 03/26/20 Completed Lumbar spinal stenosis surgery 5, 6 02/07/20 Completed Surgical 7 10/04/19 Completed Magnetic resonance angiography 8 06/19/19 Completed MRA OF THE NECK WITH MIP IMAGES 9 06/19/19 Completed Ultrasound 10 02/17/19 Completed Dilation and curettage 04/13/16 Co mpleted Hysteroscopy 04/13/16 Completed MRI,lumbar spine 04/01/16 Complete d US scan of abdomen and pelvis 11 01/08/16 Completed Punch biopsy 12 03/21/14 Completed Colonoscopy 13 02/19/14 Completed lap sleeve gastrectomy 2011 Co mpleted Bilateral Carpal Tunnel Rele asem (2009 & 2010) 14 2010 Completed Cervical Fusion (C4- C5) 15, 16 2006 Completed Cervical spine Fusion (C5- C6 17 2002 Completed ACL - Repair of anterior cru ciate ligament, Left 18 04/16/90 Completed cyst removal from Scap 1987 Completed MRI OF THE BRAIN AND INTERNA L AUDITORY CANALS 20 Completed 1biopsy - benign follicular nodule 2K5-S1 3Impression: No fracture or dislocation within the right hand. 4Type 2 daibetes mellitus with early cataracts, no retinopathy 5Lumbar stenosis with lumbar radiculopathy 6Injection 7Surgery 8MRA OF THE BRAIN WITH MIP IMAGES The left posterior cerebral artery is small in size and is partially supplied by the left posteriorcommunicating artery. No aneurysm is demonstarted. 9CONCLUSION: No significant stenosis is demonstrated in the common carotid or internal carotid arteries. 10Findings suggest a small lipoma within the subcutaneous tissue at the site of clinical concern. 11The endometrial stripe measures up to 7mm in thickness. This is greater than expected if the patient is postmenopausal. Cliical correction will be required. Gynecologic follow-up is recomended. The left ovary was not visualized. The right ovary is grossly normal as visulized but not well assessed 12right lower leg 13Repeat colonoscopy in 10 years Normal colon 14right , left 2009 2010 15C t 5 16C4 C6 plates and screws. 17fusion 18left; for torn meniscus 19removed from top of head 20MR OASIS BRAIN CRANIAL NERVES W WOUT SHEILA [...] Most recent to oldest [Reference Range]: 1 Temperature [36.5-37.9 DegC] 36.3 DegC *LOW* (08/28/24 2:39 PM) Heart Rate 63 bpm (08/28/24 2:39 PM) Respiratory Rate 16 br/min (08/28/24 2:39 PM) Blood Pressure 102/66mmHg (08/28/24 2:39 PM) Cuff Pulse Pressure 36 mmHg (08/28/24 2:39 PM) BP Location # 1 Left Arm (08/28/24 2:39 PM) Social History Social History Type Response Smoking Status Never smoked cigaret crispin Sex Female Sex Representation Female (finding) Cardiac surgery Outpatient Note * CAILIN Boo Mayeen R: PERFORM, MODIFY Event Display: Cardiac Surgery Outpt Note Authored Date: [id number] Name: CHRISTINA HORNER Patient Number: [id number] : 1960 Date of Service: 08/28/2024 Chief Complaint follow-up , neck incision check History of Present Illness Ms. Horner is a 64-year-old female with a past medical history of severe aortic stenosis, CAD s/p PCI to D1 and LAD, obesity s/p gastric sleeve surgery on GLP- 1, HLD, type 2 diabetes mellitus, and migraine. She was found with severe aortic stenosis on dobutamine echocardiography obtained during preoperative evaluation in preparation for panniculectomy. As part of her aortic valve workup, she underwenta cardiac cath in 01/2024 which revealed two-vessel CAD s/p IVUS guided PCI of D1 with 1 HONEY and midLAD X1 HONEY. She was evaluated by CT surgery and was deemed not a surgical candidate due to her comorbidities and morbid obesity. Given poor femoral access due to massive pannus, she was deemed better candidate for transcarotid TAVR. A day prior to her planned TAVR procedure, she presented to [facility] with worsening bilateral lower extremity edema. She was transferred to [facility] and ultimately underwent a successful placement of a 26 mm Ferrer MARTIN 3 ultra Resilia valve (TAVR) via left carotid artery performed by Drs. Denise and Brad. Dr. Hook performed the left carotid artery exposure and repair. Postoperatively, she received IV Lasix X 24 hours and then transition to oral form. Given history of HFpEF, she was commenced on spironolactone 12.5 mg p.o. daily and was discharged on standing Lasix 40 mg p.o. daily dose. Prior to discharge, she developed hypoxia which resolved with aggressive diuresis. There was a concern of having both obesity hypoventilation syndrome and undertreated EVELIA for which she was advised to follow-up with PCP. A postop echocardiogram on 08/18 noted on s/p bioprosthetic AVR prosthesis with adequate function and no central regurgitation or VINCE valvular leak,moderate MAC with posterior MV leaflet restriction, mild concentric LVH, and normal LV dimensions with an LVEF at 60 to 65%. She was cleared for discharge to home on. On 08/25/2024, she presented to [facility] due to concern of increased swelling and pain on the left side of the neck. A neck CT noted focal soft tissue thickening with adjacent metallic clip involving left side of the anterior neck adjacent to the left sternocleidal muscle suggestive of focal inflammatory changes/changes of recent intervention. There were no other significant abnormality noted. Per outside records, a limited bedside ultrasound of the left side of the neck where the recent incision was made for the transcarotid TAVR showed no active bleeding or large hematoma per provider's independent interpretation. She was cleared for discharge on the same day. Today she presents to the clinic for a left carotid incision check. She came in on a wheelchair and was accompanied by her . Ms. Horner reports that the swelling located on top of the incision has gotten smaller. She denies any neck discomfort, trouble swallowing, incision drainage, fever or chills. She has been taking few steps using a walker around the house. She still feels tired but this has improved from pre-TAVR. Her legs are less swollen. She denies any other cardiopulmonarysymptoms. She is sleeping well at night and has a good appetite. She states that she is starting outpt physical therapy. She states she had contacted her PCP to follow-up on sleep apnea. Review of Systems see HPI for pertinent negatives and positives Constitutional: Denies fever, chills, night sweats. reports improvement in fatigue Cardiovascular: denies chest discomfort, palpitation Pulmonary/chest: denies sob, cough, orthopnea, PND. Hematologic: Denies bleeding or bruising Gastrointestinal: Denies nausea, vomiting, constipation or diarrhea, abdominal pain, abdominal bloating. report chronic leg swelling Genitourinary: Denies urinary difficulty, frequency, or hematuria Musculoskeletal: Denies myalgia Neurological: Denies dizziness, lightheadedness, syncope, near-syncope, seizures Integumentary: Denies incision dehiscence or drainage. Denies rashes Physical Exam Vitals & Measurements T: 36.3 °C HR: 63 (Monitored) RR: 16 BP: 102/66 SpO2: 97% Vital signs as noted above. Constitutional: AAOx3, not in acute distress, able to take few steps around the exam room . Neck: Supple, No mass. No JVD. Cardiac: RRR, normal S1 and S2. No S3 or S4. No murmur, gallops or rubs detected. Abdomen: obese, soft, nontender , normoactive bowel sounds. Vascular: warm and well perfused. 2+ radial and dorsalis pedis pulses with brisk capillary refill. + 1 pitting edema on BLE Neurologic: AAOX3, speech clear and appropriate, follows commands, affect appropriate. neck incision: scabbed, dry, well approximated, no dehiscence or drainage or erythema, minimal edema noted on top aspect of incision. Assessment/Plan 1. Visit for wound check - left neck incision appears to be healing nicely without any signs of infection. there are no bruising or bleeding. there is minimal swelling palpated on top aspect of incision. - emphasized importance of daily incision care with plain soap and water, then pat dry. no lotion, ointment, powder. avoid submerging wound underwater - counseled to contact our office for any increasing swelling, new lump, pain, wound drainage or dehiscence - follow-up as needed 2. 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 3. (HFpEF) heart failure with preserved ejection fraction - status: chronic, - NYHA Functional Class:I - appears well compensated on exam. reports stable home wts. - on propranolol , Entresto, spironolactone, and Lasix - Guideline-directed medical therapy (GDMT) is proven to reduce morbidity and mortality in people with heart failure with reduced ejection fraction. Medication dosing adjustments, addition of pharmacologic agents and/or other therapies are deferred to cardiology. - HF teaching reinforced: * keep a log of daily weights, BP and pulse rate. Bring log at every doctor's appointment. * call HF clinic or cardiologists for fluid overload signs ans symptoms such as 3 lbs of wt gain over 2 consecutive days or 5 lbs over a week, new or increasing shortness of breath, new or increasing leg or abdominal swelling,needing to elevate head of bed at night for ease of breathing. * keep fluid intake at 64 ounces per day unless otherwise directed by cardiology, limit salt intake <2gm per day ( read labels, avoid fast food, salt shaker, processed food, or canned goods) - rest of follow-up with primary cardiology or HF provider. It has been a pleasure seeing Ms. Horner at our cardiac surgery clinic today. All of her questions and concerns were addressed during this visit. Thank you for allowing us to participate in her care. Please do not hesitate to contact us if you have any questions or concerns. CAILIN Jordan, [facility] Department [facility] [place] Disclaimer: This documentation was prepared utilizing YEVVO speech recognition software. No method of documentation is perfect. Grammatical errors, random word insertions, pronoun errorssuch as substituting "she" instead of "he," "her" instead of "our", and incomplete sentences are occasional consequences of the system due to software limitations, ambient noise, and hardware issues. I attempt to catch and correct these errors in the course of the documentation but am not always able to capture every error. Any questions or concerns about the content text or information contained within the body of this documentation should be directly addressed to me for clarification. If you have any questions or concerns please do not hesitate to contact me through PowerChart or via our office at [phone] Confidentiality Statement: Please notify us immediately if you received this communication in error.This letter contains information from [facility] and may be confidential and/or privileged. The information is intended only for the use of the individual or entity named on this letter. Ifyou are not the intended recipient, you are hereby notified that any disclosure, copying, distribution, or the taking of any action in reliance on the contents of this information is strictly prohibited. Thank you. Attestation I, Wesley SIMEON, spent 58 minutes of discrete time performing the activities of this visit patient. Time does not include separately reported services Activities include all of the following: _x_ review of the medical record _x_-obtaining a history _x_ physical exam/evaluation _x_-counseling/educating patient/family/caregiver __ discussion/referral to other healthcare professionals _x_ documenting care in the medical record _x_ independent interpretation of results _x_ communication of results to patient/family/caregiver _x_ coordination of care Problem List/Past Medical History Ongoing (HFpEF) heart failure with preserved ejection fraction Abdominal apron Acquired premature ovarian failure Anemia Anxiety Aortic stenosis B12 deficiency Basal cell carcinoma (BCC) 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 Candidal intertrigo Controlled diabetes mellitus with diabetic nephropathy Cough Depression, major, recurrent, moderate Diabetes Fall at home Hyperlipidemia Hypokalemia Intertrigo Itch Itch of skin Itchy skin Left hip pain Leg pain, right Leg weakness Lipoma Low back pain Low ferritin Lumbar disc narrowing Lumbar radiculopathy Mass of right lower leg MIGRAINE Migraine variant morbid obesity Pressure sore Pressure ulcer S/P TAVR (transcatheter aortic valve replacement) Sjogren's disease Sleep disorder Tinea unguium Uncontrolled diabetes mellitus with hyperglycemia Uncontrolled type 2 diabetes mellitus with hypoglycemia, without long-term current use of insulin Vitamin D deficiency Resolved Abnormal laboratory test result Acute bronchitis Acute [...] pain Vaginitis Weight disorder Wheeze Procedure/Surgical History •Thyroid| Service Date: 04/03/2024•Stent, x2| Service Date: 01/2024•Shave biopsy and cauterization of skin| Service Date: 06/03/2023•Epidural steroid injection| Service Date: 12/19/2020•Mohs surgery| Service Date: 10/15/2020•Shave biopsy and cauterization of skin| Service Date: •Plain X-ray of right hand| Service Date: 06/26/2020•Diabetic Eye examination| Service Date: 03/26/2020•Lumbar spinal stenosis surgery| Service Date: 02/07/2020•Surgical| Service Date: 10/04/2019•Magnetic resonance angiography| Service Date: 06/19/2019•MRA OF THE NECK WITH MIP IMAGES| Service Date: 06/19/2019•Ultrasound| Service Date: 02/17/2019•Hysteroscopy| Service Date: 04/13/2016•Dilation and curettage| Service Date: 04/13/2016•MRI,lumbar spine| Service Date: 04/01/2016•US scan of abdomen and pelvis| Service Date: 01/08/2016•Punch biopsy| Service Date: 03/21/2014•Colonoscopy| Service Date: 02/19/2014•lap sleeve gastrectomy| Service Date: 2011•Bilateral Carpal Tunnel Releasem (2009 & 2010)| Service Date: 2010 Cervical Fusion (C4- C5)| Service Date: 2006•Cervical spine Fusion (C5- C6| Service Date: 2002•ACL - Repair of anterior cruciate ligament, Left| Service Date: 04/16/1990•cyst removal from Scap| Service Date: 1987•MRI OF THE BRAIN AND INTERNAL AUDITORY CANALS Medications Home acetaminophen/butalbital/caffeine(acetaminophen/butalbital/caffeine 325 mg-50 mg-40 mg oral tablet), See Instructions, 2 refills aspirin(aspirin 81 mg oral delayed release tablet), 81 mg= 1 tab, PO, Daily, 11 refills azithromycin(azithromycin 500 mg oral tablet), 500 mg= 1 tab, PO, As indicated, 3 refills betamethasone-clotrimazole topical(betamethasone-clotrimazole 0.05%-1% topical cream), See Instructions, 11 refills busPIRone(busPIRone 30 mg oral tablet), 1 tab, PO, bid, 6 refills cholecalciferol(Vitamin D3 1250 mcg (50,000 intl units) oral capsule), 1 cap, PO, q7days clopidogrel(clopidogrel 75 mg oral tablet), 75 mg= 1 tab, PO, Daily, 5 refills cyclobenzaprine(cyclobenzaprine 10 mg oral tablet), 1 tab, PO, tid diabetes supplies(One Touch Verio Test Strips), See Instructions, 5 refills diabetes supplies(lancets), See Instructions diabetes supplies(One Touch Verio Glucose Monitor), See Instructions escitalopram(escitalopram 20 mg oral tablet), 1 tab, PO, Daily furosemide(Lasix 40 mg oral tablet), 40 mg= 1 tab, PO, Daily gabapentin(gabapentin 300 mg oral capsule), 1 cap, PO, bid hydrOXYzine(hydrOXYzine hydrochloride 25 mg oral tablet), 2 tab, PO, qid, PRN itraconazole(itraconazole 100 mg oral capsule), 200 mg= 2 cap, PO, q7days lactulose(lactulose 10 g/15 mL oral syrup), 10 g= 15 mL, PO, Daily, PRN, 3 refills LORazepam(LORazepam 0.5 mg oral tablet), 0.5 mg= 1 tab, PO, Daily, PRN, 1 refills metFORMIN(metFORMIN 1000 mg oral tablet), 1 tab, PO, bid ondansetron(Zofran ODT 4 mg oral tablet, disintegrating), 4 mg= 1 tab, PO, tid, PRN pantoprazole(Protonix 40 mg oral delayed release tablet), 40 mg= 1 tab, PO, Daily, 5 refills pantoprazole(Protonix 20 mg oral delayed release tablet), 20 mg= 1 tab, PO, Daily, 6 refills potassium chloride(potassium chloride 20 mEq oral tablet, extended release), 20 mEq= 1 tab, PO, bid, 3 refills propranolol(propranolol 40 mg oral tablet), 1 tab, PO, qAM rosuvastatin(rosuvastatin 20 mg oral tablet), 20 mg= 1 tab, PO, Daily, 3 refills sacubitril-valsartan(Entresto 24 mg-26 mg oral tablet), 1 tab, PO, bid, 3 refills spironolactone(spironolactone 25 mg oral tablet), 12.5 mg= 0.5 tab, PO, Daily SUMAtriptan(Imitrex 100 mg oral tablet), 100 mg= 1 tab, PO, ONCE, PRN tacrolimus topical(Protopic 0.1% topical ointment), 1 appl, topical, bid, 2 refills tirzepatide(Mounjaro 12.5 mg/0.5 mL subcutaneous solution), 1 syringe, subQ, q7days tiZANidine(tiZANidine 4 mg oral tablet), 1 tab, PO, q8h traZODone(traZODone 100 mg oral tablet), 200 mg= 2 tab, PO, qhs, 3 refills Allergies Allergy Not found in Search environmental allergies Ambien sleep walks Cryselle 28 chronic headache Excedrin Migraine upset stomach IVP dye Swelling Keflex Vomiting Nickel Rash Unable to Obtain Allergy headache, nausea clindamycin redness of eyes and tongue codeine Nausea, headache narcotic analgesics nausea penicillins i, Itching, Hives, rash, GI upset tree nuts Migraines Social History Smoking Status Never smoked cigarettes Alcohol - Denies Alcohol Use Substance Abuse - Denies Substance Abuse Tobacco - Denies Tobacco Use Use:Never smoker Family History Angina: Father. Diabetes: Father. Heart attack: Father. High Blood Pressure: Mother and Father. Kidney disease: Father. Liver disease: Father. Health Status Family Member(s) Sister: History is negative Immunizations Vaccine Date Status SARS-CoV-2 (COVID-19) mRNA-vacc - [id number] 04/05/2023 Recorded influenza virus vaccine, inactivated 03/08/2023 Given SARS-CoV-2 mRNA (Pfizer 12+) bivalent 09/24/2022 Given Comments : Early/Late Reason: Clinic schedule influenza virus vaccine, inactivated 01/28/2022 Given Comments : dmitriy fiore cma SARS-CoV-2 (COVID-19) mRNA BNT-162b2 vax 03/19/2021 Given [...] virus vaccine 10/24/2014 Given Comments : Diluent [id number] Exp11/13/16 influenza virus vaccine, inactivated 01/22/2014 Given influenza virus vaccine, inactivated 02/27/2013 Given tetanus/diphtheria/pertuss, acel (Tdap) 09/21/2005 Recorded pneumococcal 23-valent vaccine 06/21/1998 Recorded Electronic Signature on File CC: Alfredo Denise MD [address] [facility] [address] [facility] [id number] CC: Malcolm Montoya DO [address] [facility] [address] [place] [address] CC: Tiny Hager DO [address] [address] Electronically Reviewed/Signed by: CAILIN Jordan Author Signature Dt/Tm:08/28/2024 04:08 PM Division of Cardiothoracic Surgery Electronically Reviewed/Signed by: Emory Hook MD Division of Cardiothoracic Surgery MRD Patient Care team information Care Team Personnel Name: CAILIN Pham Tara Position: Nurse Pract - Family Med Member Role: Lifetime Relationship Address: [address] Telecom: [phone] Name: DO Palumbo Franklin J Position: Physician - Family Med Member Role: Lifetime Relationship Address: [address] [facility] [address] Telecom: [phone] Name: DO Hager Kristen M Position: Physician - Family Med Member Role: Primary Care Provider Address: [address] [facility] [address] [place] [address] [place] Telecom: [phone] Name: CAILIN Rodriguez Kathleen R Position: Nurse Pract - Card Intv Cardiology Member Role: Lifetime Relationship Address: [address] [facility] [address] [place] [address] [place] Telecom: [phone] Name: Tamy Bacon Ann Position: Pharmacist Member Role: Pharmacy - Lifetime Name: CAILIN Layton Anna L Position: Nurse Pract - Female Pelvic Med Member Role: Lifetime Relationship Address: [address] [facility] [address] [place] [address] [place] Telecom: [phone] Name: DO Goyal Sameer Position: Resident Member Role: Lifetime Relationship Address: [address] [facility] [address] [place] [address] [place] Telecom: [phone] Name: MD Silveira Ann M Position: Physician - Surgery MIS Member Role: Lifetime Relationship Address: [address] [place] [address] [place] Telecom: [phone] Name: COURTNEY Ojeda Christina L Position: Physician - Podiatry Member Role: Lifetime Relationship Address: [address] [facility] [address] [place] [address] [place] Telecom: [phone] Name: MD Dottie, Rajeev Robles Position: Physician - Derm Member Role: Lifetime Relationship Address: [address] [facility] [address] Telecom: [phone] Care Team Related Persons Name: YVES HORNER Name: YENIFER HORNER Insurance Providers Guarantor name: CHRISTINA HORNER Health Plan Information #: 1 Payer: [employer] Member Number: [id number] Policy Number: NA Group Number: [id number] Payer Identifier: [id number] Health Plan Information #: 2 Payer: [employer] Member Number: [id number] Policy Number: NA Group Number: [id number] Payer Identifier: [id number]
--- OUTSIDE RECORDS SUMMARY | 2024-09-07 03:38 | External Medical Summary | Continuity of Care Document ---
Author Name Unknown Organization [address] Address [address] [place] [id number] Care Team Providers Care Lubricator Granulator Name Role Phone Tiny Hager Primary Care Physician [phone] [facility] [id number] Date(s): 08/30/24 - 08/30/[address], [address] [phone] Encounter Diagnosis Hypokalemia(Discharge Diagnosis) - 08/30/24 Diabetes(Discharge Diagnosis) - 08/30/24 Lower extremity weakness(Discharge Diagnosis) - 08/30/24 (HFpEF) heart failure with preserved ejection fraction(Discharge Diagnosis) - 08/30/24 Discharge Disposition: Home or Self Care Attending Physician: DO Hager Kristen M Referring Physician: DO Hager Kristen M Encounter Type: Clinic Allergies, Adverse Reactions, Alerts Substance Criticality Severity [...] and Plan Extracted from: Title:Office Visit Note Author:Madan DO Talitaverona Mason Date:08/30/24 1. Hypokalemia Chronic condition, stable Goal:Resolution Data:unique tests ordered: _ Plan: _recheck 2. Diabetes Chronic condition, stable Goal:Resolution Data:unique tests ordered: _ Plan: _restart mounjaro 3. Lower extremity weakness Chronic condition, stable Goal:Resolution Data:unique tests ordered: _ Plan: _PT with the goal for #4 4. (HFpEF) heart failure with preserved ejection fraction Chronic condition, stable Goal:Resolution Data:unique tests ordered: _ Plan: _get strength so she can complete cardio PT Immunizations Given and Recorded Vaccine Date Status Refusal Reason pneumococcal 20-valent conjugate vaccine 1 08/30/24 Given SARS-CoV-2 (COVID-19) mRNA-vacc - [id number] 04/05/23 Recorded influenza virus vaccine, inactivated 03/08/23 [...] Early/Late Reason: Clinic schedule 5Result Comment: Diluent [id number] 11/13/16 Medications acetaminophen/butalbital/caffeine 325 mg-50 mg-40 mg oral tablet Start: 07/07/24 3:24:00 PM EST, See Instructions, Disp# 30 tab, Refills: 2, TAKE 1 TABLET BY MOUTH EVERY 6 HOURS NEEDED FOR HEADACHE, Pharmacy: [facility] [id number] Start Date: 07/07/24 Status: Ordered Quantity: 30.0 Unit: tab Repeat number: 3 aspirin 81 mg oral delayed release tablet Start: 01/28/24 2:13:00 PM EDT, 1 tab, PO, Daily, Disp# 30 tab, Refills: 11, Pharmacy: [facility] Start Date: 01/28/24 Status: Ordered Quantity: 30.0 Unit: tab Repeat number: 12 betamethasone-clotrimazole 0.05%-1% topical cream Start: 12/22/23 12:43:00 PM EDT, See Instructions, Disp# 45 g, Refills: 11, APPLY TOPICALLY TO AFFECTED AREA DAILY, Pharmacy: [facility] [id number] Start Date: 12/22/23 Status: Ordered Quantity: 45.0 Unit: g Repeat number: 12 Indications: Erythema intertrigo; busPIRone 30 mg oral tablet Start: 01/26/24 12:58:00 PM EDT, 1 tab, PO, bid, Disp# 60 tab, Refills: 6, Pharmacy: [facility] [id number] Start Date: 01/26/24 Status: Ordered Quantity: 60.0 Unit: tab Repeat number: 7 clopidogrel 75 mg oral tablet Start: 08/19/24 10:26:00 AM EDT, 1 tab, PO, Daily, Disp# 30 tab, Refills: 5, Pharmacy: [facility] Start Date: 08/19/24 Status: Ordered Quantity: 30.0 Unit: tab Repeat number: 6 cyclobenzaprine 10 mg oral tablet Start: 08/04/24 1:22:00 PM EDT, 1 tab, PO, tid, Disp# 270 tab, Refills: 0, Pharmacy: [facility] [id number] Start Date: 08/04/24 Status: Ordered Quantity: 270.0 Unit: tab Repeat number: 1 Entresto 24 mg-26 mg oral tablet Start: 08/23/24 1:59:00 PM EDT, 1 tab, PO, bid, Disp# 180 tab, Refills: 3, Pharmacy: [facility] Start Date: 08/23/24 Status: Ordered Quantity: 180.0 Unit: tab Repeat number: 4 escitalopram 20 mg oral tablet Start: 01/25/24 3:16:00 PM EDT, 1 tab, PO, Daily, Disp# 90 tab, Refills: 2, Pharmacy: [facility] [id number] Start Date: 01/25/24 Status: Ordered Quantity: 90.0 Unit: tab Repeat number: 1 gabapentin 300 mg oral capsule Start: 06/02/24 8:40:00 AM EST, 1 cap, PO, bid, Disp# 180 cap, Refills: 0, Pharmacy: [facility] [id number] Start Date: 06/02/24 Status: Ordered Quantity: 180.0 Unit: cap Repeat number: 1 hydrOXYzine hydrochloride 25 mg oral tablet Start: 07/27/24 10:37:00 AM EDT, 2 tab, PO, qid, Disp# 100 tab, Refills: 0, PRN: NEEDED FOR ITCHING, Pharmacy: [facility] [id number] Start Date: 07/27/24 Status: Ordered Quantity: 100.0 Unit: tab Repeat number: 1 Imitrex 100 mg oral tablet Start: 05/20/23 11:57:00 AM EST, 1 tab, PO, ONCE, Disp# 10 tab, PRN: as needed for migraine headache,Pharmacy: [facility] [id number] Start Date: 05/20/23 Status: Ordered Quantity: 10.0 Unit: tab Repeat number: 1 itraconazole 100 mg oral capsule 2 cap, PO, q7days, TAKE 2 CAPSULES BY MOUTH ONCE A WEEK Start Date: 06/26/24 Status: Ordered Repeat number: 1 lactulose 10 g/15 mL oral syrup Start: 04/05/23 4:53:00 PM EST, 15 mL, PO, Daily, Disp# 240 mL, Refills: 3, PRN: as needed for constipation, Pharmacy: [facility] [id number] Start Date: 04/05/23 Status: Ordered Quantity: 240.0 Unit: mL Repeat number: 4 lancets Start: 08/13/21 2:58:00 PM EDT, See Instructions, Disp# 1 kit, Refills: 0, check BSG once daily, Pharmacy: [facility] [id number] Start Date: 08/13/21 Status: Ordered Quantity: 1.0 Unit: kit Repeat number: 1 Indications: Type 2 diabetes mellitus with diabetic nephropathy; Lasix 40 mg oral tablet Start: 08/19/24 10:27:00 AM EDT, 1 tab, PO, Daily, Disp# 30 tab, Pharmacy: [facility] Start Date: 08/19/24 Stop Date: 09/18/24 Status: Ordered Quantity: 30.0 Unit: tab Repeat number: 1 LORazepam 0.5 mg oral tablet Start: 01/26/24 12:58:00 PM EDT, 1 tab, PO, Daily, Disp# 30 tab, Refills: 1, prn, PRN: as needed foranxiety, Pharmacy: [facility] [id number] Start Date: 01/26/24 Status: Ordered Quantity: 30.0 Unit: tab Repeat number: 2 Indications: Anxiety disorder, unspecified; metFORMIN 1000 mg oral tablet Start: 08/04/24 1:22:00 PM EDT, 1 tab, PO, bid, Disp# 180 tab, Refills: 0, Hold for TAVR, Pharmacy: [facility] [id number] Start Date: 08/04/24 Status: Ordered Quantity: 180.0 Unit: tab Repeat number: 1 Mounjaro 10 mg/0.5 mL subcutaneous solution Start: 08/30/24 12:00:00 PM EDT, 10 mg =, subQ, q7days, Disp# 2 mL, Refills: 2, tirzepatide, Pharmacy: [facility] [id number] Start Date: 08/30/24 Status: Ordered Quantity: 2.0 Unit: mL Repeat number: 3 Mounjaro 12.5 mg/0.5 mL subcutaneous solution Start: 06/06/24 2:10:00 PM EST, 1 syringe, subQ, q7days, Disp# 4 mL, Refills: 0, Pharmacy: [facility] [id number] Start Date: 06/06/24 Status: Ordered Quantity: 4.0 Unit: mL Repeat number: 1 Mounjaro 12.5 mg/0.5 mL subcutaneous solution Start: 08/30/24 12:01:00 PM EDT, 12.5 mg =, subQ, q7days, Disp# 2 mL, Refills: 2, tirzepatide, Pharmacy: [facility] [id number] Start Date: 08/30/24 Status: Ordered Quantity: 2.0 Unit: mL Repeat number: 3 One Touch Verio Glucose Monitor Start: 08/14/21 9:05:00 AM EDT, See Instructions, Disp# 1 kit, Refills: 0, Use to test BSG once daily, Note to Pharmacy: Dx: E11.9;, Pharmacy: [facility] [id number] Start Date: 08/14/21 Status: Ordered Quantity: 1.0 Unit: kit Repeat number: 1 One Touch Verio Test Strips Start: 08/12/21 4:00:00 PM EDT, See Instructions, Disp# 100 strip, Refills: 5, Pt to test sugars 1 time daily. E11.9, Pharmacy: [facility] [id number] Start Date: 08/12/21 Status: Ordered Quantity: 100.0 Unit: Repeat number: 6 potassium chloride 20 mEq oral tablet, extended release Start: 08/23/24 2:00:00 PM EDT, 1 tab, PO, bid, Disp# 180 tab, Refills: 3, Pharmacy: [facility] [id number] Start Date: 08/23/24 Status: Ordered Quantity: 180.0 Unit: tab Repeat number: 4 propranolol 40 mg oral tablet Start: 08/04/24 1:22:00 PM EDT, 1 tab, PO, qAM, Disp# 90 tab, Refills: 0, Pharmacy: [facility] [id number] Start Date: 08/04/24 Status: Ordered Quantity: 90.0 Unit: tab Repeat number: 1 Protonix 20 mg oral delayed release tablet Start: 03/22/24 10:37:00 AM EST, 1 tab, PO, Daily, Disp# 30 tab, Refills: 6, takes at night time, Pharmacy: [facility] [id number] Start Date: 03/22/24 Stop Date: 10/18/24 Status: Ordered Quantity: 30.0 Unit: tab Repeat number: 7 Protonix 40 mg oral delayed release tablet Start: 01/28/24 2:12:00 PM EDT, 1 tab, PO, Daily, Disp# 30 tab, Refills: 5, Pharmacy: [facility] Start Date: 01/28/24 Status: Ordered Quantity: 30.0 Unit: tab Repeat number: 6 Protopic 0.1% topical ointment Start: 06/03/23 11:53:00 AM EST, 1 appl, topical, bid, Disp# 60 g, Refills: 2, to arms, legs, abdomen and upper back where itchy, Pharmacy: [facility] Start Date: 06/03/23 Status: Ordered Quantity: 60.0 Unit: g Repeat number: 3 Indications: Atopic dermatitis, unspecified; rosuvastatin 20 mg oral tablet Start: 01/31/24 5:41:00 PM EDT, 1 tab, PO, Daily, Disp# 90 tab, Refills: 3, Note to Pharmacy: discontinue simvastatin, Pharmacy: [facility] Start Date: 01/31/24 Status: Ordered Quantity: 90.0 Unit: tab Repeat number: 4 spironolactone 25 mg oral tablet Start: 08/19/24 10:27:00 AM EDT, 0.5 tab, PO, Daily, Disp# 15 tab, Pharmacy: [facility] Start Date: 08/19/24 Stop Date: 09/18/24 Status: Ordered Quantity: 15.0 Unit: tab Repeat number: 1 tiZANidine 4 mg oral tablet Start: 08/04/24 1:22:00 PM EDT, 1 tab, PO, q8h, Disp# 90 tab, Refills: 0, Pharmacy: [facility] Start Date: 08/04/24 Status: Ordered Quantity: 90.0 Unit: tab Repeat number: 1 traZODone 100 mg oral tablet Start: 06/21/24 11:52:00 AM EST, 2 tab, PO, qhs, Disp# 180 tab, Refills: 3, Pharmacy: [facility] Start Date: 06/21/24 Stop Date: 06/16/25 Status: Ordered Quantity: 180.0 Unit: tab Repeat number: 4 Vitamin D3 1250 mcg (50,000 intl units) oral capsule Start: 08/01/24 3:22:00 PM EDT, 1 cap, PO, q7days, Disp# 12 cap, Refills: 0, Pharmacy: [facility] Start Date: 08/01/24 Status: Ordered Quantity: 12.0 Unit: cap Repeat number: 1 Zofran ODT 4 mg oral tablet, disintegrating Start: 02/24/23 3:12:00 PM EDT, 1 tab, PO, tid, Disp# 10 tab, Refills: 0, PRN: as needed for nausea/vomiting, Pharmacy: [facility] Start Date: 02/24/23 Status: Ordered Quantity: 10.0 Unit: tab Repeat number: 1 Mental Status 08/30/24 Barriers to Learning one year Vision imp airment, Other: glasses Mandatory Health Literacy Documentation Yes Health Literacy Communication Barriers N ever Primary Language Maldivian Problem List Condition Confirmation Course Effective Dates Status H ealth Status Informant Anemia Confirmed Active Anxiety Confirmed Active Aortic stenosis Confirmed Active B12 deficiency Confirmed Active Basal cell carcinoma (BCC) Confirmed Active CAD in [place] artery Confirmed Active Candidal intertrigo Confirmed Active [...] Dates Health Status Clinical Service Informant Diabetes Discharge Diagnosis 08/30/24 Non-Specified Lower extremity weakness Discharge Diagnosis 08/30/24 Non-Specified (HFpEF) heart failure with preserved ejection fraction Discharge Diagnosis 08/30/24 Non-Specified Hypokalemia Discharge Diagnosis 08/30/24 Non-Specified Procedures Procedure Date Related Diagnosis Body [...] Colonoscopy 13 02/19/14 Completed lap sleeve gastrectomy 2012 Co [...] oldest [Reference Range]: 1 Temperature [36.5-37.9 DegC] 35.8 DegC *LOW* (08/30/24 11:35 AM) Heart Rate 64 bpm (08/30/24 11:35 AM) Blood Pressure 120/70mmHg (08/30/24 11:35 AM) Cuff Pulse Pressure 50 mmHg (08/30/24 11:35 AM) Social History Social History Type Response Smoking Status Never smoked cigaret crispin Sex Female Sex Representation Female (finding) [facility]CM Outpt Note * DO Hager Kristen M: PERFORM Event Display: FCM Outpt Note Authored Date: [id number] Chief Complaint F/u. Wants physical therapy. Bipap broke. Wants to talk about heart failure. Wants b12 injection. Questions about vaccines. History of Present Illness Pt had aortic valve replacement--August 16. Review of Systems ROS: Denies GRADY, visual changes, SOB, CP, N/V, no edema, fever, chills, dysuria, bowel changes Physical Exam Vitals & Measurements T: 35.8 °C HR: 64 (Monitored) BP: 120/70 SpO2: 98% PHQ2 Data (Data Documented on:08/30/2024 11:31) Emotional health assessment NEGATIVE G: AAAOx3, NAD H: RR normal S1/S2 no M/R/G L: CTA b/l no r/r/w HEENT: external ear canal and TM wnl, oral mucosa moist, no lymphadenopathy A: soft +bs nt nd E: 2 + edema P: normal affect and insight, no homicidal/suicidal ideation Assessment/Plan 1. Hypokalemia Chronic condition, stable Goal:Resolution Data:unique tests ordered: _ Plan: _recheck 2. Diabetes Chronic condition, stable Goal:Resolution Data:unique tests ordered: _ Plan: _restart mounjaro 3. Lower extremity weakness Chronic condition, stable Goal:Resolution Data:unique tests ordered: _ Plan: _PT with the goal for #4 4. (HFpEF) heart failure with preserved ejection fraction Chronic condition, stable Goal:Resolution Data:unique tests ordered: _ Plan: _get strength so she can complete cardio PT Attestation I spent 4 min time in previsit planning including prepping note and chart review . I spent 35 time in face to face interaction with patient concerning the issues that brought them in today. 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 Diabetes: Father. Heart attack: Father. High Blood Pressure: Mother and Father. Kidney disease: Father. Liver disease: Father. Health Status Family Member(s) Sister: History is negative Immunizations Vaccine Date Status SARS-CoV-2 (COVID-19) mRNA-vacc - [id number] 04/05/2023 Recorded influenza virus vaccine, inactivated 03/08/2023 Given SARS-CoV-2 mRNA (Pfizer 12+) bivalent 09/24/2022 Given Comments : Early/Late Reason: Clinic schedule influenza virus vaccine, inactivated 01/28/2022 Given Comments : [facility] SARS-CoV-2 (COVID-19) mRNA BNT-162b2 vax 03/19/2021 Given [...] virus vaccine 10/24/2014 Given Comments : Diluent [id number] Exp11/13/16 influenza virus vaccine, inactivated 01/22/2014 Given influenza virus vaccine, inactivated 02/27/2013 Given tetanus/diphtheria/pertuss, acel (Tdap) 09/21/2005 Recorded pneumococcal 23-valent vaccine 06/21/1998 Recorded Recommendations Health Maintenance Pending (in the next year) OverDue Adult Influenza Vaccine due 11/15/23 and every 1 year Colorectal Cancer Screening due 02/17/24 and every 10 year Due Hepatitis C Screening due 08/30/24 One-time only Pneumococcal Vaccine Older Adults due 08/30/24 One-time only Seasonal COVID 19 Vaccine due 08/30/24 Unknown Frequency Shingles Vaccine due 08/30/24 One-time only Due In Future Breast Cancer Screening not due until 11/30/24 and every 731 day Kidney Health Evaluation not due until 01/26/25 and every 366 day Body Mass Index not due until 06/27/25 and every 366 day Diabetes Management A1c not due until 08/12/25 and every 366 day Adult Social Determinants of Health Screening not due until 08/18/25 and every 366 day Satisfied (in the past 1 year) Satisfied Body Mass Index on 08/16/24. Satisfied by SHAZIA Yu, Yenifer [place] Diabetes Management A1c on 08/11/24. Satisfied by Contributor_system, [id number] Diabetic Eye Exam on 01/04/24. Satisfied by ANGEL Zepeda Lynnae Kidney Health Evaluation on 08/21/24. Satisfied by Contributor_system, [id number] Lipid Screening on 08/18/24. Satisfied by Contributor_system, [id number] Electronic Signature on File Electronically Reviewed/Signed by: Tiny Hager DO Author Signature Dt/Tm:08/30/2024 12:47 PM Department of Family Medicine [facility] Patient Care team information Care Team Personnel Name: CAILIN Pham Tara Position: Nurse Pract - Family Med Member Role: Lifetime Relationship Address: [address] [place] [address] [place] DATAllegrocom: [phone] Name: DO Palumbo Franklin J Position: Physician - Family Med Member Role: Lifetime Relationship Address: [address] [address] [place] Telecom: [phone] Name: DO Hager Kristen M Position: Physician - Family Med Member Role: Primary Care Provider Address: [address] [facility] [address] [place] [address] [place] Telecom: [phone] Name: CAILIN Rodriguez Kathleen R Position: Nurse Pract - Card Intv Cardiology Member Role: Lifetime Relationship Address: [address] [facility] [facility] [address] [place] [address] [place] Telecom: [phone] Name: Tamy Bacon Ann Position: Pharmacist Member Role: Pharmacy - Lifetime Name: CAILIN Layton Anna L Position: Nurse Pract - Female Pelvic Med Member Role: Lifetime Relationship Address: [address] [facility] [address] [place] [address] [place] Telecom: [phone] Name: DO Goyal Sameer Position: Resident Member Role: Lifetime Relationship Address: [address] [facility] [address] [place] [address] [place] Telecom: [phone] Name: MD Silveira Ann M Position: Physician - Surgery MIS Member Role: Lifetime Relationship Address: [address] [place] [address] [place] Telecom: [phone] Name: COURTNEY Ojeda Christina L Position: Physician - Podiatry Member Role: Lifetime Relationship Address: [address] [facility] [address] [place] [address] [place] Telecom: [phone] Name: MD Sinclair David L Position: Physician - Derm Member Role: Lifetime Relationship Address: [address] [facility] [address] [place] [address] [place] Telecom: [phone] Care Team Related Persons Name: YVES HORNER Name: YENIFER HORNER Insurance Providers Guarantor name: CHRISTINA HORNER Health Plan Information #: 1 Payer: [employer] Member Number: [id number] Policy Number: NA Group Number: [id number] Payer Identifier: [id number] Health Plan Information #: 2 Payer: [employer] Member Number: [id number] Policy Number: NA Group Number: [id number] Payer Identifier: [id number]"
[2024-09-07] MEDS ORDERED: Patient's HEIGHT &/or WEIGHT Needed STA (03:57)
[2024-09-07] MEDS: tiZANidine HCL 4 MG TABLET PO PRN (06:07)
[2024-09-07] MEDS: hydrOXYzine HCl 25 MG TAB PO PRN (06:07)
[2024-09-07] MEDS: NYSTATIN POWDER 15GM BTL EXT SCH (08:41)
[2024-09-07] MEDS: busPIRone 15 MG TAB PO SCH (08:45)
[2024-09-07] MEDS: CYCLOBENZAPRINE HCL 10 MG TAB PO SCH (08:46)
[2024-09-07] MEDS: PANTOprazole 40 MG TAB PO SCH (08:46)
[2024-09-07] MEDS: GABAPENTIN 300 MG CAP PO SCH (08:46)
[2024-09-07] MEDS: FLUCONAZOLE 100 MG TAB PO SCH (08:46)
[2024-09-07] MEDS: NYSTATIN CR 15 GM TUBE EXT SCH (08:48)
[2024-09-07] MEDS: LANTUS PER UNIT CHARGE SQ SCH (09:00)
[2024-09-07] MEDS: INSULIN ASPART PER UNIT CHARGE SC SCH (09:00)
[2024-09-07] MEDS: hydroCHLOROthiazide 25 MG TAB PO SCH (09:05)
[2024-09-07] MEDS: PROPRANOLOL HCL 20 MG TAB PO SCH (09:05)
[2024-09-07] MEDS: FUROSEMIDE 40 MG TAB PO SCH (09:05)
[2024-09-07] MEDS: SPIRONOLACTONE 12.5 MG TAB PO SCH (09:05)
--- NOTE | 2024-09-07 10:48 | Electrocardiogram Report ---
Test Reason : Blood Pressure : */* mmHG Vent. Rate : 74 BPM Atrial Rate : 74 BPM P-R Int : 130 ms QRS Dur : 84 ms QT Int : 414 ms P-R-T Axes : -1 -13 55 degrees QTcB Int : 459 ms Normal sinus rhythm Low voltage QRS Possible Anterolateral infarct , age undetermined Abnormal ECG When compared with ECG of 26-Aug-2024 23:31, Borderline criteria for Anterolateral infarct are now Present Confirmed by Song June ([id number]) on 09/07/2024 10:47:56 AM Referred By: REFERRED SELF Confirmed By: Song June
--- NOTE | 2024-09-07 10:57 | Pharmacy Report ---
Pharmacy PK ABX Note - Date of Service September 07, 2024 - Assessment and Plan Assessment 64 year old F receiving vancomycin/fluconazole for treatment of right groin cellulitis. Day # 1 of antimicrobial therapy. Plan Vancomycin * Loading dose: 2750 mg IV x 1 * Maintenance dose: 1500 mg IV every 12 hours * Regimen is predicted to achieve target AUC/MONA of 400-600 mg/L.hr * Random level ordered for: 09/09/24 @0900 Pharmacy will continue to follow and will adjust dose/frequency as necessary. Thank you. Pharmacy has transitioned to AUC monitoring for vancomycin. AUC/MONA is the preferred PK/PD target and is associated with decreased risk of nephrotoxicity compared to traditional trough targets.
[2024-09-07 11:16] LABS: Appearance Urine Clear (Clear); Bacteria Urine Automated None Seen (None Seen); Bilirubin Urine Negative (Negative); Blood Urine Negative (Negative); Cast Urine Automated 0-2 /lpf (0-2); Color Urine Yellow; Epithelial Cell Urine Auto 0-2 /hpf (0-2); Glucose Urine UA 1+ (Negative); Ketones Urine Negative (Negative); Leukocyte Esterase Urine Trace (Negative); Nitrite Urine Negative (Negative); Protein Urine Negative (Negative); Specific Gravity Urine 1.012 (1.000-1.030); Urobilinogen Urine Negative (Negative); WBC Urine Automated 0-5 /hpf (0-5); pH Urine 7.5 (4.5-7.5)
[2024-09-07] MEDS: VANCOMYCIN HCL 1,500 MG in SODIUM CHLORIDE 0.9% 500 ML IV SCH (13:07)
--- NOTE | 2024-09-07 14:48 | Communication Note ---
Date of Service: September 07, 2024 Please refer to the H&P dictated earlier this morning for details of presentation on admission. In brief, the patient presented with right groin cellulitis. This is most likely fungal in etiology complicated by bacterial superinfection. She is now being treated with fluconazole 200 mg p.o. daily, nystatin cream and powder, vancomycin. She says that she is already feeling better. I asked the nurse to gayla the area of redness.
[2024-09-07] MEDS: ESCITALOPRAM OXALATE 20 MG TAB PO SCH (20:43)
[2024-09-07] MEDS: ASPIRIN 81 MG ECTAB PO SCH (20:43)
[2024-09-07] MEDS: CLOPIDOGREL BISULFATE 75 MG TAB PO SCH (20:44)
[2024-09-07] MEDS: ROSUVASTATIN CALCIUM 20 MG TAB PO SCH (20:45)
[2024-09-07] MEDS: traZODone HCL 50 MG TAB PO SCH (20:45)
[2024-09-07] MEDS: traZODone HCL 100 MG TAB PO SCH (20:45)
[2024-09-08] MEDS: tiZANidine HCL 4 MG TABLET PO ONE ×2 (08:59→13:57)
[2024-09-08 09:43] LABS: Hematocrit (blood only) 38.8 % (37.0-47.0); Hemoglobin 12.6 g/dl (12.0-16.0); Mean Corpuscular Hemoglobin 27.6 pg (25.0-34.0); Mean Corpuscular Hgb Conc 32.5 g/dL (32.0-36.0); Mean Corpuscular Volume 84.9 fL (80.0-100.0); Platelet Count 193 K/uL (130-400); RDW Coefficient of Variation 13.7 % (11.5-14.5); RDW Standard Deviation 42.4 fL (36.4-46.3); Red Blood Count 4.57 M/uL (4.20-5.40); White Blood Count 8.77 K/ul (4.8-10.8)
[2024-09-08 10:00] LABS: BUN Creatinine Ratio 19.3 (10-20); Calcium 9.1 mg/dl (8.6-10.3); Potassium 3.7 mmol/L (3.5-5.1)
--- NOTE | 2024-09-08 15:34 | Hospitalist Progress Note ---
Date of Service September 08, 2024 Assessment & Plan (1) Cellulitis of groin, right: (2) Poorly controlled type 2 diabetes mellitus: (3) Hypertension: (4) Ming's disease: (5) GERD (gastroesophageal reflux disease): (6) Sleep apnea: Plan 64-year-old female with diabetes, hypertension presenting with worsening right groin infection. Patient with history of chronic intertriginous infection for which she takes itraconazole as well as clotrimazole topical. She has noted significant worsening over the last 2 days. Also with chills. #Cellulitis right groinlikely fungal in nature, possibly bacterial superinfection Significantly improved today Fluconazole 200 mg p.o. daily nystatin cream and powder twice daily Wound care twice daily Discontinue vancomycin and monitor for improvement #Diabetes Hold oral medications Lantus 7 units twice daily Insulin sliding scale Continue gabapentin 300 mg p.o. twice daily #Hypertension Continue spironolactone Resume hydrochlorothiazide and Lasix Continue propranolol Continue to monitor #hyperlipidemia Continue Crestor #GERD Continue Protonix #Recent TAVR Continue aspirin, clopidogrel #EVELIA CPAP nightly Admission and Anticipated Discharge Date Admission Date: September 07, 2024 Subjective Patient says she feels better overall. Her pain is improved. The redness is improved. Review of Systems Review of Systems: All systems reviewed & are unremarkable except as noted in Subjective Physical Exam Physical Exam: General: Awake, conversant Heart: S1, S2/regular rate and rhythm, no murmur rubs or gallops Lungs: Clear to auscultation bilaterally. Normal effort Abdomen: Soft/nontender/nondistended. No hepatosplenomegaly. Right groin cellulitis/superficial fungal infection improved Extremities: No clubbing/cyanosis. No edema Behavior: Appropriate, cooperative Results & Data Results & Data Vital Signs (Past 12 Hours) Vital Signs Temp Pulse Resp BP Pulse Ox O2 Del Method 09/08/24 15:07 36.4 C L 60 18 126/79 92 Room Air 09/08/24 10:12 69 121/81 96 Room Air 09/08/24 07:18 36.4 C L 81 16 146/83 H 92 Room Air PG Care Time/CCT Total # of Minutes Spent Total Time Spent with Patient: Total time spent is greater than 50% in coordination of care (as documented) at patient's floor/unit and/or counseling patient: Coding Level of Care Code 25409 SUB INP/OBS CARE MIN Diagnoses Cellulitis of groin, right L03.314 Poorly controlled type 2 diabetes mellitus E11.65 Hypertension I10 Ming's disease E06.3 GERD (gastroesophageal reflux disease) K21.9 Sleep apnea G47.30
[2024-09-08] MEDS: ACETAMINOPHEN 325 MG TAB PO PRN (21:17)
[2024-09-09 07:20] LABS: Creatinine Clr Calc Pharmacy 131.9 ml/min
[2024-09-09] MEDS: ceFAZolin 2000MG 2,000 MG/15 ML SYR IV SCH (10:08)
--- NOTE | 2024-09-09 13:53 | Hospitalist Progress Note ---
Date of Service September 09, 2024 Assessment & Plan (1) Cellulitis of groin, right: (2) Poorly controlled type 2 diabetes mellitus: (3) Hypertension: (4) Ming's disease: (5) GERD (gastroesophageal reflux disease): (6) Sleep apnea: Plan 64-year-old female with diabetes, hypertension presenting with worsening right groin infection. Patient with history of chronic intertriginous infection for which she takes itraconazole as well as clotrimazole topical. She has noted significant worsening over the last 2 days. Also with chills. #Cellulitis right groinlikely fungal in nature, possibly bacterial superinfection Initially improved but is worse today after IV vancomycin was discussed Fluconazole 200 mg p.o. daily nystatin cream and powder twice daily Wound care twice daily Will resume IV antibiotics. Will try to give her Ancef IV and watch for any reaction. It says that she develops hives at a reaction to cephalexin. #Diabetes Hold oral medications Lantus 7 units twice daily Insulin sliding scale Continue gabapentin 300 mg p.o. twice daily #Hypertension Continue spironolactone Resume hydrochlorothiazide and Lasix Continue propranolol Continue to monitor #hyperlipidemia Continue Crestor #GERD Continue Protonix #Recent TAVR Continue aspirin, clopidogrel #EVELIA CPAP nightly Admission and Anticipated Discharge Date Admission Date: September 08, 2024 Subjective Patient's says that her right groin is more sore today. It appears more red today than yesterday. Review of Systems Review of Systems: All systems reviewed & are unremarkable except as noted in Subjective Physical Exam Physical Exam: General: Awake, conversant Heart: S1, S2/regular rate and rhythm, no murmur rubs or gallops Lungs: Clear to auscultation bilaterally. Normal effort Abdomen: Soft/nontender/nondistended. No hepatosplenomegaly. Right groin cellulitis/superficial fungal infection worse today than yesterday. The area is inflamed and red again. Extremities: No clubbing/cyanosis. No edema Behavior: Appropriate, cooperative Results & Data Results & Data Vital Signs (Past 12 Hours) Vital Signs Temp Pulse Resp BP Pulse Ox O2 Del Method 09/09/24 09:10 36.5 C 79 16 135/83 93 Room Air PG Care Time/CCT Total # of Minutes Spent Total Time Spent with Patient: Total time spent is greater than 50% in coordination of care (as documented) at patient's floor/unit and/or counseling patient: Coding Level of Care Code 02914 SUB INP/OBS CARE MIN Diagnoses Cellulitis of groin, right L03.314 Poorly controlled type 2 diabetes mellitus E11.65 Hypertension I10 Ming's disease E06.3 GERD (gastroesophageal reflux disease) K21.9 Sleep apnea G47.30
[2024-09-09] MEDS: ADVANCED PROBIOTIC 625 MG CAPSULE PO SCH (18:08)
[2024-09-10 07:40] LABS: Creatinine Clr Calc Pharmacy 98.9 ml/min
--- NOTE | 2024-09-10 14:28 | Hospitalist Progress Note ---
Date of Service September 10, 2024 Assessment & Plan (1) Cellulitis of groin, right: (2) Poorly controlled type 2 diabetes mellitus: (3) Hypertension: (4) Ming's disease: (5) GERD (gastroesophageal reflux disease): (6) Sleep apnea: Plan 64-year-old female with diabetes, hypertension presenting with worsening right groin infection. Patient with history of chronic intertriginous infection for which she takes itraconazole as well as clotrimazole topical. She has noted significant worsening over the last 2 days. Also with chills. #Cellulitis right groinlikely fungal in nature, possibly bacterial superinfection Initially improved but was worse on 09/09 after IV vancomycin was discontinued Fluconazole 200 mg p.o. daily nystatin cream and powder twice daily Wound care twice daily Resumed Ancef. No adverse reaction to it although listed as an allergy. Improving only since Ancef started. Will monitor closely #Diabetes Hold oral medications Lantus 7 units twice daily Insulin sliding scale Continue gabapentin 300 mg p.o. twice daily #Hypertension Continue spironolactone Resume hydrochlorothiazide and Lasix Continue propranolol Continue to monitor #hyperlipidemia Continue Crestor #GERD Continue Protonix #Recent TAVR Continue aspirin, clopidogrel #EVELIA CPAP nightly Admission and Anticipated Discharge Date Admission Date: September 08, 2024 Subjective Patient says that her groins are still painful. Review of Systems Review of Systems: All systems reviewed & are unremarkable except as noted in Subjective Physical Exam Physical Exam: General: Awake, conversant Heart: S1, S2/regular rate and rhythm, no murmur rubs or gallops Lungs: Clear to auscultation bilaterally. Normal effort Abdomen: Soft/nontender/nondistended. No hepatosplenomegaly. Right groin cellulitis/superficial fungal infection better than yesterday but the area is still inflamed and red. Extremities: No clubbing/cyanosis. No edema Behavior: Appropriate, cooperative Results & Data Results & Data Vital Signs (Past 12 Hours) Vital Signs Temp Pulse Resp BP Pulse Ox O2 Del Method 09/10/24 07:16 36.5 C 91 H 18 124/88 94 Room Air PG Care Time/CCT Total # of Minutes Spent Total Time Spent with Patient: Total time spent is greater than 50% in coordination of care (as documented) at patient's floor/unit and/or counseling patient: Coding Level of Care Code 79048 SUB INP/OBS CARE MIN Diagnoses Cellulitis of groin, right L03.314 Poorly controlled type 2 diabetes mellitus E11.65 Hypertension I10 Ming's disease E06.3 GERD (gastroesophageal reflux disease) K21.9 Sleep apnea G47.30
[2024-09-11 09:49] LABS: Hematocrit (blood only) 40.6 % (37.0-47.0); Hemoglobin 13.1 g/dl (12.0-16.0); Mean Corpuscular Hemoglobin 26.7 pg (25.0-34.0); Mean Corpuscular Hgb Conc 32.3 g/dL (32.0-36.0); Mean Corpuscular Volume 82.7 fL (80.0-100.0); Mean Platelet Volume 9.9 fL (9.4-12.4); Platelet Count 212 K/uL (130-400); RDW Coefficient of Variation 13.5 % (11.5-14.5); RDW Standard Deviation 40.1 fL (36.4-46.3); Red Blood Count 4.91 M/uL (4.20-5.40); White Blood Count 8.77 K/ul (4.8-10.8)
[2024-09-11 10:03] LABS: BUN Creatinine Ratio 23.2 (10-20); Calcium 9.2 mg/dl (8.6-10.3); Creatinine Clr Calc Pharmacy 103.2 ml/min; Potassium 2.8 mmol/L (3.5-5.1)
--- NOTE | 2024-09-11 11:54 | Hospitalist Progress Note ---
Date of Service September 11, 2024 Assessment & Plan (1) Cellulitis of groin, right: (2) Poorly controlled type 2 diabetes mellitus: (3) Hypertension: (4) Ming's disease: (5) GERD (gastroesophageal reflux disease): (6) Sleep apnea: Plan 64-year-old female with diabetes, hypertension presenting with worsening right groin infection. Patient with history of chronic intertriginous infection for which she takes itraconazole as well as clotrimazole topical. She has noted significant worsening over the last 2 days. Also with chills. #Cellulitis right groinlikely fungal in nature, possibly bacterial superinfection Initially improved but was worse on 09/09 after IV vancomycin was discontinued. Decided to start Ancef IV on 09/09. Patient is improving clinically on Ancef. Today 09/11, will switch to p.o. Keflex. If continues to improve on p.o. antibiotic, may be discharged tomorrow on Fluconazole 200 mg p.o. daily nystatin cream and powder twice daily Wound care twice daily Patient has had no adverse reaction to Ancef. I started Keflex today even though hives has been listed as an allergic reaction to Keflex. Benefits outweigh the risks at this time. #Diabetes Hold oral medications Lantus 7 units twice daily Insulin sliding scale Continue gabapentin 300 mg p.o. twice daily #Hypertension Continue spironolactone Resumed hydrochlorothiazide and Lasix Continue propranolol Continue to monitor Treat hypokalemia. Resume home potassium pills. Recheck BMP in a.m. #hyperlipidemia Continue Crestor #GERD Continue Protonix #Recent TAVR Continue aspirin, clopidogrel #EVELIA CPAP nightly Admission and Anticipated Discharge Date Admission Date: September 08, 2024 Subjective Her right groin is less painful but her left groin is more painful today. Per nurse, she has a little bit of tear in the left groin. The patient says that the pain is going down but it is quite itchy. Review of Systems Review of Systems: All systems reviewed & are unremarkable except as noted in Subjective Physical Exam Physical Exam: General: Awake, conversant Heart: S1, S2/regular rate and rhythm, no murmur rubs or gallops Lungs: Clear to auscultation bilaterally. Normal effort Abdomen: Soft/nontender/nondistended. No hepatosplenomegaly. Right groin cellulitis/superficial fungal infection appears less red and inflamed. Left groin skin tear noted. On her left groin, there are some red and "angry" looking spots still Extremities: No clubbing/cyanosis. No edema Behavior: Appropriate, cooperative Results & Data Results & Data Vital Signs (Past 12 Hours) Vital Signs Temp Pulse Resp BP Pulse Ox O2 Del Method 09/11/24 07:11 36.7 C 74 18 137/85 91 Room Air Laboratory Results Abnormal lab results 09/10/24 09/10/24 09/10/24 Range/Units 11:37 16:28 20:45 Sodium (136-145) mmol/L Potassium (3.5-5.1) mmol/L Chloride (98-107) mmol/L Carbon Dioxide (21-32) mmol/L BUN/Creatinine Ratio (10-20) Glucose (70-99(Fasting)) mg/dl POC Glucose 201 H 146 H 169 H (70-99) mg/dl 09/11/24 09/11/24 09/11/24 Range/Units 07:35 09:36 11:21 Sodium 135 L (136-145) mmol/L Potassium 2.8 L (3.5-5.1) mmol/L Chloride 96 L (98-107) mmol/L Carbon Dioxide 33 H (21-32) mmol/L BUN/Creatinine Ratio 23.2 H (10-20) Glucose 230 H (70-99(Fasting)) mg/dl POC Glucose 176 H 217 H (70-99) mg/dl PG Care Time/CCT Total # of Minutes Spent Total Time Spent with Patient: Total time spent is greater than 50% in coordination of care (as documented) at patient's floor/unit and/or counseling patient: Coding Level of Care Code 46263 SUB INP/OBS CARE 235MIN Diagnoses Cellulitis of groin, right L03.314 Poorly controlled type 2 diabetes mellitus E11.65 Hypertension I10 Ming's disease E06.3 GERD (gastroesophageal reflux disease) K21.9 Sleep apnea G47.30
[2024-09-11] MEDS: POTASSIUM CHLORIDE / WTR 10 MEQ/100 ML PLCT IV SCH (12:06)
[2024-09-11] MEDS: POTASSIUM CHLORIDE CRTAB 20 MEQ TABCR PO SCH (12:06)
[2024-09-11] MEDS: cephALEXin 500 MG CAP PO SCH (13:38)
[2024-09-12 04:00] LABS: BUN Creatinine Ratio 25.7 (10-20); Calcium 9.3 mg/dl (8.6-10.3); Creatinine Clr Calc Pharmacy 101.8 ml/min; Potassium 3.3 mmol/L (3.5-5.1)
[2024-09-12 07:53] VITALS: BP 129/78; PULSE 79; RESP 16; TEMP 98.1; O2SAT 96
--- NOTE | 2024-09-12 10:48 | Discharge Summary ---
Discharge Summary Date of Service September 12, 2024 Principal Dx & Hospital Course #1 = Principal Diagnosis (1) Cellulitis of groin, right: (2) Poorly controlled type 2 diabetes mellitus: (3) Hypertension: (4) Ming's disease: (5) GERD (gastroesophageal reflux disease): (6) Sleep apnea: Plan 64-year-old female with diabetes, hypertension presenting with worsening right groin infection. Patient with history of chronic intertriginous infection for which she takes itraconazole as well as clotrimazole topical. She has noted significant worsening over the last 2 days. Also with chills. #Cellulitis right groinlikely fungal in nature, possibly bacterial superinfection Initially improved but was worse on 09/09 after IV vancomycin was discontinued. Decided to start Ancef IV on 09/09. Patient is improving clinically on Ancef. Today 09/11, will switch to p.o. Keflex. If continues to improve on p.o. antibiotic, may be discharged tomorrow on Fluconazole 200 mg p.o. daily nystatin cream and powder twice daily Wound care twice daily Patient has had no adverse reaction to Ancef. I started Keflex today even though hives has been listed as an allergic reaction to Keflex. Benefits outweigh the risks at this time. #Diabetes Hold oral medications Lantus 7 units twice daily Insulin sliding scale Continue gabapentin 300 mg p.o. twice daily #Hypertension Continue spironolactone Resumed hydrochlorothiazide and Lasix Continue propranolol Continue to monitor Treat hypokalemia. Resume home potassium pills. Recheck BMP in a.m. #hyperlipidemia Continue Crestor #GERD Continue Protonix #Recent TAVR Continue aspirin, clopidogrel #EVELIA CPAP nightly Admission HPI Per Admitting Provider Ene Pompa is a 64-year-old female with history of hypertension, hyperlipidemia, diabetes, GERD, Ming's thyroiditis, fibromyalgia status post TAVR performed on 08/17/2024 presenting with several days of chills at home as well as increased right groin pain and worsening of a fungal skin infection. Patient has been using itraconazole 200 mg weekly as well as clotrimazolebetamethasone cream daily. However, her rash has been getting consistently worse. She has had increased redness and pain. Patient additionally has been complaining of some loose stools, nonbloody, nonmucoid. No additional complaints at this time In the ER she is afebrile, hemodynamically stable WBC count = 17.29 ER course: Vancomycin 2750 mg IV Fluconazole 100 mg p.o. Discharge Exam GENERAL APPEARANCE NAD, activity normal for age, well developed/ well nourished, no cyanosis, pallor, or diaphoresis. EYES lids/conjunctiva normal. EARS/NOSE/THROAT Mucous membranes moist, nares normal, lips/teeth normal uvula midline without oral pharyngeal erythema, exudate or swelling TMs normal bilaterally. No lymphangitis/lymphedema. HEAD/NECK normocephalic atraumatic, no facial trauma, neck is supple. RESPIRATORY respiratory effort normal, speaks in full sentences, no tripod position, no accessory muscle use. Lungs clear to auscultation without rhonchi, wheezes, rales CARDIAC Regular rate and rhythm, no edema. ABDOMINAL Soft, ND/NT. No evidence of fluid wave. No pulsatile masses on exam, rebound tenderness, Cooney sign or pain over Mcburney's point. MUSCLES/EXTREMITIES No abnormal range of motion, no swelling. SKIN Warm, pink and dry. No rashes, dermatoses, petechiae or lesions. NEUROLOGICAL Speech is clear and appropriate. Normal level of consciousness. Gai t and coordination are normal. 5/5 strength in all extremities. PSYCH Normal mood and affect. Judgement/competence is appropriate Discharge Plan Discharge Items Patient Disposition: Home - Self-Care Reason For Visit: CELLULITIS Discharge Diagnosis: - Bilateral groin cellulitis with superficial fungal infection Activity: Resume your previous activity Non-emergency contact: Primary Care Provider Call non-emergency contact if: you have any medication questions and your symptoms worsen Follow-up/Referrals: Tiny Hager DO [Primary Care Provider] - Diet: Carb Consistent or DM2 Addtl Attending Provider Instructions: Advised to follow-up with PCP in 1 week Pending Studies at Discharge: No Stand-Alone Forms: My [facility] [employer] Medications and DC Order Prescriptions: New nystatin 100,000 unit/gram Cream 1 applic EXT BID 14 Days Qty: 30 0RF nystatin [Nystop] 100,000 unit/gram Powder 1 applic EXT BID 30 Days Qty: 30 0RF fluconazole [Diflucan] 100 mg Tablet 200 mg PO QAM Qty: 7 0RF cephalexin 500 mg Capsule 500 mg PO QID Qty: 28 0RF Continued cholecalciferol (vitamin D3) 1,250 mcg (50,000 unit) capsule 1,250 mcg PO .FRIDAYS ondansetron 4 mg tablet,disintegrating 4 mg PO Q8H PRN (Reason: Nausea And Vomiting) glipizide 10 mg tablet 10 mg PO QAM cyclobenzaprine 10 mg tablet 10 mg PO BID buspirone 30 mg tablet 30 mg PO BID propranolol 40 mg tablet 40 mg PO QAM trazodone 100 mg tablet 200 mg PO HS tizanidine 4 mg Tablet 4 mg PO Q8H PRN (Reason: MUSCLE SPASMS) Patient Comments: NEEDED AND ROUTINE TAKE ONE AT NIGHT Rx Instructions: routinely takes 1 tablet at night metformin 1,000 mg Tablet 1,000 mg PO BID escitalopram oxalate 20 mg Tablet 20 mg PO HS Hold Instructions: Resume on 05/18/23. gabapentin 300 mg Tablet Extended Release 24 Hr 300 mg PO BID cyanocobalamin (vitamin B-12) 1,000 mcg/mL Kit 1,000 mcg IM MONTHLY lorazepam [Ativan] 0.5 mg Tablet 0.5 mg PO BID PRN (Reason: Anxiety) hydroxyzine pamoate 25 mg Capsule 25 - 50 mg PO QID PRN (Reason: Itching) [id number] [Fioricet] 50-300-40 mg capsule 1 cap PO ONCE PRN (Reason: MIGRAINES) hydrochlorothiazide 25 mg tablet 25 mg PO QAM pantoprazole 20 mg tablet,delayed release (DR/EC) 20 mg PO BID clopidogrel 75 mg tablet 75 mg PO QPM aspirin 81 mg Tablet,Delayed Release (Dr/Ec) 81 mg PO QPM trazodone 50 mg Tablet 50 mg PO HS Rx Instructions: take with 200mg rosuvastatin 20 mg tablet 20 mg PO HS Mounjaro 12.5 mg/0.5 mL pen injector 12.5 mg SUBCUT WK Rx Instructions: saturdays furosemide 40 mg tablet 40 mg PO QAM spironolactone 25 mg tablet 12.5 mg PO QAM potassium chloride 20 mEq tablet extended release 20 meq PO BID Entresto 24-26 mg Tablet 1 tab PO BID Discontinued itraconazole 100 mg capsule 100 mg PO WK Rx Instructions: must administer with a meal/food wednesday clotrimazole-betamethasone 1-0.05 % cream 1 applic TOPICAL DAILY Rx Instructions: abdominal folds Discharge Orders: Discharge Order (Routine); Ordered 09/12/24 Ordered By: Beto Ramirze Admission Data Admit Date/Time: 09/08/24 16:51 Attending Provider: Beto Ramirez Admit Provider: Thiago Kelley Primary Care Provider: Tiny Hager Other Providers: Charito Canela Hospital Stay Data Consultations 09/07/24 01:32 ED Decision to Admit Stat Diagnostic Imagining Performed 09/06/24 22:37 US venous doppler LE RT Stat Pending Results Patient Have Any Pending Studies at Discharge: No Discharge Instructions Given to Patient (Per Discharging Provider) Advised to follow-up with PCP in 1 week Total Time Total Time Spent Total Time Spent (In Minutes): 50 Coding Level of Care Code 15041 INP/OBS DISCH >30 MIN Diagnoses Cellulitis of groin, right L03.314 Poorly controlled type 2 diabetes mellitus E11.65 Hypertension I10 Ming's disease E06.3 GERD (gastroesophageal reflux disease) K21.9 Sleep apnea G47.30
--- NOTE | 2024-09-14 12:49 | Coding Query ---
CODING QUERY FOR UNCONTROLLED DIABETES To promote full compliance with coding requirements relating to patient care, provider participation is requested in all cases of office administration uncertainty. Please assist us with the question(s) below: Coding Question: The term uncontrolled Diabetes was used throughout the record. To be able to code this diagnosis properly, could you please clarify the diagnosis below: (x ) Uncontrolled Diabetes meaning hypoglycemia ( ) Uncontrolled Diabetes meaning hyperglycemia ( ) Other (please specify) Principal Diagnosis: "that condition established after study, to be chiefly responsible for occasioning the admission of the patient to the hospital for care." Co-Existing Principal Diagnosis: "when two or more diagnoses equally meet the criteria for principal diagnosis as determined by the circumstances of admission, diagnostic work up, and/or therapy provided, and the Alphabetic Index, Tabular List, or another coding guideline does not provide sequencing direction, any one of the diagnoses may be sequenced first." "When the physician has documented what appears to be a current diagnosis in the body of the record, but has not included the diagnosis in the final diagnostic statement, the physician should be asked whether the diagnosis should be added." (Source Coding [facility] 2 QTR90. p3-4) JOSE J
== END 2024-09-12 13:25 | disposition home or self-care (01) | DRG 603 ==
LOC: SUATTDRO → ED 21:05 → 3E 21:05 → SUATTDRO 09-07 01:49 → 3E 09-07 02:55 → SUATTDRO 09-08 16:51